=== PATIENT | female | born 2005 | race Caucasian/White ===

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

== ENCOUNTER → 2025-02-07 | Outpatient (CLI) | payer OTHER, SELFPAY ==
[2025-02-07 18:13] LABS: Internal QC Validated? YES +Cl - CLEAR BKGD; Record Kit Lot#, Mono 16251077
== END | disposition home or self-care (01) ==
LOC: MFPLAB 12:28
PROVIDERS: PCP Family Medicine
DX: J02.0 Streptococcal pharyngitis (principal)
CPT/HCPCS: 36415; 86308

== ENCOUNTER 2025-02-14 05:55 | Day surgery (SDC) | payer OTHER, SELFPAY ==
[2025-02-13 10:19] LABS: Hematocrit 40.6 % (37-47); Hemoglobin 13.4 g/dL (12.0-15.0); Mean Corp Hgb Conc 33.0 g/dL (32-36); Mean Corpuscular Volume 86.9 fL (81-99); Mean Platelet Vol. 8.9 fl (6.2-12.0); Platelet Count 236 K/mm3 (150-450); RBC Distribution Width CV 12.0 % (11.6-14.6); RBC Distribution Width SD 38.5 fl (35.1-43.9); Red Blood Count 4.67 M/mm3 (4.2-5.4); White Blood Count 5.4 K/mm3 (4.4-11.0)
[2025-02-13 10:25] LABS: Prothrombin Time (Protime)PT. 13.5 SECONDS (11.7-14.9)
[2025-02-13 10:26] LABS: Partial Thromboplast Time 29.1 Seconds (24.1-36.2)
[2025-02-13 11:10] LABS: AST(SGOT) 18 U/L (<=31); Alanine Aminotransfer ALT/SGPT 13 U/L (<=34); Albumin, Serum 4.0 g/dL (3.5-5.0); Alkaline Phosphatase 84 U/L (35-104); Bilirubin, Direct 0.11 mg/dL (0.00-0.30); Globulin 2.9 g/dL (2.2-4.2)
[2025-02-14] VITALS (15 sets, daily range): BP systolic 93–139; BP diastolic 56–99; PULSE 69–95; RESP 0–18; TEMP 36.1–36.8; O2SAT 10–100; BMI 28.0
--- OUTSIDE RECORDS SUMMARY | 2025-02-14 05:58 | XMS RPT_ITS | CCD ---
Author Organization [facility] Care Team Providers Care Ent Surgeon Name Role Phone Belen Thacker MD Primary Care Provider RAFIA FOREMAN Attending Unavailable RAFIA FOREMAN Referring Unavailable BELEN THACKER Primary Care Unavailable RAFIA FOREMAN Referring Unavailable BELEN THACKER Primary Care Unavailable RAFIA FOREMAN Attending Unavailable IRENE MOONEY Admitting Unavail able IRENE MOONEY Attending Unavail able BELEN THACKER Primary Care Unavailable IRENE MOONEY Referring Unavail able MARY RITTER Attending Unavailable BELEN THACKER Primary Care Unavailable RAFIA FOREMAN Attending Unavailable DOC, MISC Referring Unavailable BELEN THACKER Primary Care Unavailable Unavailable Primary Care Provider Unavailabl e Unavailable Primary Care Provider Unavailabl e Liss ALEXANDER, Ana Primary Care Provider Ana Leija MD Referring Provider McMorrow RELAY MECHANIC-CAaron Attending Provider McMorrow RELAY MECHANIC-CAaron Referring Provider [phone] Ruddy RELAY MECHANIC-CDarcy Attending Provider Ruddy RELAY MECHANIC-C Darcy Referring Provider Dr. Lor Bell MD Attending Provider Madeleine Vidales Referring Provider Ana Leija Primary Care Unavailable Darcy Fox Attending Unavailable Ruddy Darcy Referring Unavailable Ana Leija Primary Care Unavailable Ruddy, Darcy Referring Unavailable Ruddy, Darcy Attending Unavailable Ana Leija Primary Care Unavailable Darcy Fox Attending Unavailable Ruddy Darcy Referring Unavailable Kancherla, Phoenix Consulting Unavailable Robotham, Lor Attending Unavailable Robotham, Lor Referring Unavailable Liss, Chalon Primary Care Unavailable McMorrow RELAY MECHANIC, Aaron Attending Unavailable McMorrow RELAY MECHANIC, Aaron Referring Unavailable Liss, Chalon Primary Care Unavailable McMorrow RELAY MECHANIC, Aaron Attending Unavailable Liss, Chalon Primary Care Unavailable Robotham, Lor Attending Unavailable Liss, Chalon Referring Unavailable Liss, Chalon Primary Care Unavailable Liss, Chalon Primary Care Unavailable Madeleine Fischer Referring Unavailable Robotham, Lor Attending Unavailable Liss, Chalon Primary Care Unavailable Ruddy, Darcy Attending Unavailable Liss, Chalon Referring Unavailable Ruddy, Darcy Attending Unavailable Liss, Chalon Referring Unavailable Liss, Chalon Primary Care Unavailable Liss, Chalon Primary Care Unavailable Ruddy, Darcy Attending Unavailable Liss, Chalon Referring Unavailable McMorrow RELAY MECHANIC, Aaron Attending Unavailable Liss, Chalon Primary Care Unavailable Liss, Chalon Referring Unavailable NEWSOME, ELSA Referring Unavailable NEWSOME, ELSA Referring Unavailable NEWSOME, ELSA Attending Unavailable NEWSOME, ELSA Attending Unavailable NEWSOME, ELSA Attending Unavailable NEWSOME, ELSA Referring Unavailable NEWSOME, ELSA Referring Unavailable NEWSOME, ELSA Attending Unavailable Allergies Allergy Classification Reported Allergen(s) Allergy Type Date of Onset Reaction(s) Facility (20 sources) Amoxicillin; Translations: [AMOXICILLIN] Drug Allergy 5 Rash [facility] (20 sources) Contrast media; Translations: [RED DYE] Allergy to substance 5 Hives, Swelling [facility] (2 sources) Other; Translations: [OTHER] Propensity to adverse reactions 3 Other (See Comments) [facility] (7 sources) cow milk allergenic extract Drug Allergy 5 abdominal pain [facility] (7 sources) egg extract Drug Allergy 5 abdominal pain [facility] (7 sources) Wheat preparation Drug Allergy 5 abdominal pain [facility] (1 source) Amoxicillin Drug Allergy 5 [facility] Repository (1 source) egg extract Drug Allergy 5 [facility] (1 source) Milk Drug allergy (disorder) 5 [facility] (1 source) Wheat preparation Drug Allergy 5 [facility] Rep[facility] (1 source) FD AND C RED NO.40; Translations: [FD AND C RED NO.40] Propensity to adverse reactions to drug (disorder) 3 [facility] Repository Medications Current Medications Medication Drug Class(es) Dates Sig (Normalized) Sig (Original) dicyclomine hydrochloride 20 mg oral tablet (3 sources) Anticholinergic Start: 07-30-2022 take 1 tablet by mouth three times daily dicyclomine (BENTYL) 20 MG Take 1 Tablet (20 mg) by mouth 3 times daily 90 Tablet 3 07/30/2022 Active Drospirenone-Ethiny l Estradiol (12 sources) Progestin, Estrogen Start: 11-05-2024 Drospirenone-Ethi nyl Estradiol 3-0.02 mg tablet Active 1 {tbl} PO daily November 05, 2024 12:00am Start: 07-31-2024 take 30-30.9 tablets by mouth once Drospirenone-Ethinyl Estradiol (AARON, Saima,) 3-0.02 mg per tablet Indications: PCOS (polycystic ovarian syndrome) , Class 1 obesity without serious comorbidity with body mass index (BMI) of 30.0 to 30.9 in adult, unspecified obesity type , Secondary oligomenorrhea , Elevated testosterone level Take 1 tablet by mouth once daily. 84 tablet 3 07/31/2024 Active [place] (Nk) (1 source) Start: 10-12-2023 [place] (Nk) Active October 12, 2023 12:00am phentermine hydrochloride 37.5 mg oral tablet (2 sources) Sympathomimetic Amine Anorectic Start: 09-06-2024 take 1 tablet by mouth once daily Phentermine HCl 37.5 mg tablet Take 1 tablet by mouth once daily. 09/06/2024 Active polyethylene glycol 3350 56020 mg powder for oral solution (3 sources) Osmotic Laxative Start: 01-04-2013 take 17 g by mouth twice daily polyethylene glycol (MIRALAX) powder Take 17 g by mouth 2 times daily. 255 g 0 01/04/2013 Active sucralfate 1000 mg oral tablet (2 sources) Aluminum Complex Start: 12-20-2024 take 1 tablet by mouth twice daily Sucralfate (Carafate) 1 gram tablet Active 1 g PO TWICE A DAY 60 30 2 December 20, 2024 12:00am Completed/Discontinued Medications Medication Drug Class(es) Dates Sig (Normalized) Sig (Original) calcium chloride 0.0014 meq/ml / potassium chloride 0.004 meq/ml / sodium chloride 0.103 meq/ml / sodium lactate 0.028 meq/ml injectable solution (1 source) Start: 08-23-2022 End: 08-23-2022 CONTINUOUS, Intravenous, at 100 mL/hr, Starting on Tue08/23/22 at 1000, For 90 days, PACU 168 hr ethinyl estradiol 0.19663 mg/hr / norelgestromin 0.69195 mg/hr transdermal system (7 sources) Progestin, Estrogen Start: 02-14-2023 End: 07-31-2024 apply 1 dose transdermal route every week XULANE 150-35 mcg/24 hr patch Apply 1 Patch as directed one time a week. 9 Patch 3 02/14/2023 07/31/2024 Discontinued (Course of therapy completed) Start: 11-08-2022 apply 1 dose transde rmal route every week Ethinyl Estradiol-Norelgestrom (XULANE) 150-35 mcg/24 hr patch Apply 1 Patch as directed one time a week. 3 Patch 3 11/08/2022 Active Comment on above: Apply 1 Patch as dir ected one time a week. lidocaine 40 mg/ml topical cream (1 source) Antiarrhythmic, Amide Local Anesthetic Start: 08-23-2022 End: 08-23-2022 lidocaine (LMX) 4 % kit Start: 08-23-2022 End: 08-23-2022 lidocaine (LMX) 4 % kit linaclotide 0.29 mg oral capsule (7 sources) Guanylate Cyclase-C Agonist Start: 11-06-2024 End: 11-28-2024 Linaclotide (Linzess) 290 mcg capsule Discontinued 290 ug PO EVERY MORNING 90 0 November 06, 2024 12:00am November 28, 2024 9:45am take 30 minutes before first meal 40/60 release 24 hr methylphenidate hydrochloride 20 mg extended release oral capsule (16 sources) Central Nervous System Stimulant Start: 01-24-2014 End: 10-12-2023 Methylphenidate Hcl 20 MG capsule,ER biphasic 50-50 Discontinued 20 mg PO DAILY January 24, 2014 12:00am October 12, 2023 9:52pm ondansetron 4 mg disintegrating oral tablet (17 sources) Serotonin-3 Receptor Antagonist Start: 11-05-2024 End: 11-06-2024 take 1 tablet by mouth twice daily as needed Ondansetron 4 mg tablet,disintegratin g Discontinued 4 mg PO TWICE A DAY as needed November 05, 2024 12:00am November 06, 2024 10:56am Start: 01-20-2023 End: 10-12-2023 take 1 tablet by mouth every eight hours as needed for nausea and vomiting Ondansetron 4 mg tablet,disintegrating Discontinued 4 mg PO Q8H as needed for nausea and vomiting 9 3 0 January 20, 2023 12:00am October 12, 2023 9:52pm Oxygen (1 source) Start: 08-23-2022 End: 08-23-2022 See Flowsheet Row, PRN, Starting on Tue08/23/22 at 0935, Until Tue08/23/22 at 1031 Keep sats greater or equal to 95% pantoprazole 40 mg delayed release oral tablet (13 sources) Proton Pump Inhibitor Start: 11-06-2024 End: 12-20-2024 take 1 tablet by mouth once daily Pantoprazole 40 mg tablet,delayed release (DR/EC) Discontinued 40 mg PO daily 90 0 November 28, 2024 12:00am December 20, 2024 10:27am plecanatide 3 mg oral tablet (5 sources) Start: 11-28-2024 End: 12-20-2024 take 1 tablet by mouth once daily Plecanatide (Trulance) 3 mg tablet Discontinued 3 mg PO daily 14 1 November 28, 2024 12:00am December 20, 2024 10:27am Problems Active Problems Problem Classification Problem Date Documented Da te Episodic/Chronic Abdominal pain (20 sources) Abdominal pain; Translations: [Unspecified abdominal pain] Onset: 3 07-30-2022 Episodic Contraceptive and procreative management (3 sources) Patient encounter status; Translations: [Encounter for other contraceptive management] Onset: Episodic Esophageal disorders (7 sources) Gastroesophageal reflux disease; Translations: [Gastro-esophageal reflux disease without esophagitis] 11-05-2024 Chronic Menstrual disorders (5 sources) Secondary oligomenorrhea; Translations: [Secondary oligomenorrhea] Onset: 5 07-19-2024 Chronic Other endocrine disorders (11 sources) Polycystic ovary syndrome; Translations: [Polycystic ovarian syndrome] 07-31-2024 Chronic Other endocrine disorders (1 source) Polycystic ovarian syndrome; Translations: [PCOS (polycystic ovarian syndrome)] Onset: Chronic Other female genital disorders (3 sources) Vaginal odor; Translations: [Other specified noninflammatory disorders of vagina] Episodic Other female genital disorders (11 sources) Cyst of uterine adnexa; Translations: [Unspecified condition associated with female genital organs and menstrual cycle] Onset: 5 07-26-2024 Episodic Other female genital disorders (1 source) Vaginal discharge; Translations: [Other specified noninflammatory disorders of vagina] 09-25-2024 Episodic Other gastrointestinal disorders (19 sources) Constipation; Translations: [Constipation, unspecified] Onset: 3 08-19-2022 Episodic Other liver diseases (8 sources) Lesion of liver; Translations: [Liver disease, unspecified] 11-28-2024 Chronic Other liver diseases (1 source) Liver disease, unspecified; Translations: [Liver disease, unspecified] Onset: Chronic Other liver diseases (17 sources) Enzyme level - finding; Translations: [Elevated transaminase measurement] 11-05-2024 Episodic Other lower respiratory disease (7 sources) Dyspnea; Translations: [Shortness of breath] 11-05-2024 Episodic Other nutritional; endocrine; and metabolic disorders (2 sources) Obesity; Translations: [Class 1 obesity without serious comorbidity with body mass index (BMI) of 30.0 to 30.9 in adult, unspecified obesity type] 07-31-2024 Chronic Unclassified (1 source) Elevation of levels of liver transaminase levels; Translations: [Elevation of levels of liver transaminase levels] Onset: 5 Viral infection (11 sources) Infectious mononucleosis; Translations: [Infectious mononucleosis, unspecified without complication] 12-11-2022 Episodic Past or Other Problems Problem Classification Problem Date Documented Da te Episodic/Chronic Conditions associated with dizziness or vertigo (10 sources) Dizziness and giddiness; Translations: [Dizziness and giddiness] Onset: 09-25-2024 09-25-2024 Episodic Nausea and vomiting (20 sources) Nausea; Translations: [Nausea] Onset: 09-25-2024 09-25-2024 Episodic Other female genital disorders (1 source) Other specified noninflammatory disorders of vagina; Translations: [Vaginal discharge] Onset: 09-25-2024 Episodic Other gastrointestinal disorders (1 source) Constipation, unspecified; Translations: [Constipation, unspecified] Onset: 11-06-2024 Episodic Other screening for suspected conditions (not mental disorders or infectious disease) (7 sources) Increased testosterone level; Translations: [Other specified abnormal findings of blood chemistry] Onset: 09-25-2024 07-31-2024 Episodic Ovarian cyst (14 sources) Cyst of right ovary; Translations: [Unspecified ovarian cyst, right side] Onset: 07-26-2024 07-26-2024 Episodic Results Test Name Value Interpretation Reference Range Facility [facility] 02-07-2025 Monocytes (Bld) [#/Vol] Negative Normal Negative [facility] Comment on above: Order Comment: Order Date: 02/07/25 Order Info: [id number] - MONO Comments: sore throat Performed By: #### L [id number] #### [facility] [address] [place], [place], [id number] [place] 02-03-2025 Indication Follow-up on right ovarian cyst Impression The uterus is anteverted and measures 68 mm x 28 mm x 38 mm. The endometrial thickness is 4 mm. The right ovary measures 38 mm x 29 mm x 19 mm and contains a new 20 mm x 12 mm x 23 mm multilocular cyst with smooth inner wall/non-vascular septations. O-RADS 3 The previous right ovarian cyst seen 07/26/2024 has resolved. There is a right simple paraovarian/paratubal cyst that measures 14.7 mm x 10.2 mm x 13.0 mm. The left ovary measures 33 mm x 33 mm x 18 mm. There is no free fluid visualized. Recommendations O-RADS 3 ovarian lesion, follow up ultrasound is recommended in 6 months if no surgical intervention is planned , Simple paraovarian/paratubal cyst, no follow up imaging is needed. Menstrual History LMP on 01/14/2025. Day of cycle 18. Cycle: regular cycle. Bleeding: normal Method Transabdominal, transvaginal, 3D ultrasound examination, Color Doppler examination. View: Adequate visualization Uterus Uterus: Visualized Uterus position: anteverted Description of uterine malformations: normally shaped Myometrium: normal Endometrium: normal Cervix details: normal Uterus length 68 mm Uterus width 38 mm Uterus height 28 mm Uterus Vol 38.0 cm Endometrial thickness, total 4.0 mm Fibroids: No fibroids identified Polyps: No polyps identified Right Ovary Rt ovary: Visualized Rt ovary morphology: premenopausal normal follicular Rt ovary D1 38 mm Rt ovary D2 29 mm Rt ovary D3 19 mm Rt ovary Vol 11.0 cm Rt ovarian cyst(s): Cysts identified Rt ovarian cyst D1 20 mm Rt ovarian cyst D2 12 mm Rt ovarian cyst D3 23 mm Rt ovarian cyst mean 18.5 mm Rt ovarian cyst vol 2.987 cm Rt ovarian cyst findings: Multilocular cyst with smooth inner wall/non-vascular septations Right Adnexal Mass Findings: Simple paraovarian/paratubal cyst. Size 14.7 mm x 10.2 mm x 13.0 mm. Mean 12.6 mm. Vol 1.021 cm Left Ovary Lt ovary: Visualized Lt ovary morphology: premenopausal normal follicular Lt ovary D1 33 mm Lt ovary D2 33 mm Lt ovary D3 18 mm Lt ovary Vol 10.0 cm Lt ovarian cyst(s): No cysts identified Cul de Sac Visualized. no free fluid visualized Performed By: Amanda Peralta RDMS Read By: Lul Purdy M.D. MATERNAL MEDICINE [facility] [place] 01-31-2025 Radiology Study observation (narrative) Valerie wilks [facility] Surgery Visit Reporton 01-03 Surgery Visit Report [facility] [address] [place] [address] OFFICE VISIT Date of Service: 01/03/25 MR#: [id number] Acct: [id number] Name: NIKKI THACKER IRENE Rep #: [id number] : 2005 Provider: Dr. Lor laird MD Age/Sex: 19/F Location: [facility] Status: Signed Intake Vital Signs 12/20/24 10:26 01/03/25 14:01 Height 5 ft 4 in 5 ft 4 in Weight: 161 lb 160 lb BMI 27.6 27.4 BP 103/68 103/68 Blood Pressure Location Rt brachial Rt brachial Position Sitting Sitting Respiration 17 18 Pulse 67 62 Pulse Source Monitor Monitor Temp 17 F L Temp Source Temporal Pulse Oximetry (%) 99 100 Oxygen Delivery Method room air room air Intake Visit Reasons: 1 week followup Chief Complaint: 1 week f/u Accompanied by: Mother Is patient in pain?: No Allergies egg (eggs) Allergy (Intermediate, Verified 01/03/25 14:02) abdominal pain milk Allergy (Intermediate, Verified 01/03/25 14:02) abdominal pain wheat Allergy (Intermediate, Verified 01/03/25 14:02) abdominal pain red dye Allergy (Verified 01/03/25 14:02) Swelling amoxicillin (Amoxicillin) Adverse Reaction (Verified 01/03/25 14:02) Rash Medications ???Medication ???Instructions ???Recorded ???Confirmed ???Type drospirenone 3 mg-ethinyl 1 tab PO QDAY 11/05/24 01/03/25 Hi story estradiol 0.02 mg tablet pantoprazole 40 mg tablet,delayed 40 mg PO QDAY #30 tabs 12/20/24 0 01/03/25 Rx release (Protonix) sucralfate 1 gram tablet (Carafate) 1 g PO BID 30 days #60 tabs 01/03/25 Rx PFSH Medical History Vitamin deficiency Frequent headaches UTI (urinary tract infection) Patent pressure equalization (PE) tubes, bilateral Low back pain PCOS (polycystic ovarian syndrome) Attention-deficit hyperactivity disorder, unspecified type Psoriasis Family History Grandmother Colon cancer IBS (irritable bowel syndrome) Social History Smoking Status: Never smoker HPI HPI HPI: 19-year-old female presents for follow-up. Patient still states she is having lower abdominal pain and even some left upper quadrant more so than right upper quadrant pain. Patient is continue to take the pantoprazole but did stop the Carafate as she stated caused constipation. Patient does have a previous HIDA scan with ejection fraction of 17%. ROS General General: Yes weight change and fatigue; No appetite, colon cancer or breast cancer HEENT HEENT: No difficulty swallowing, eye injury, eye surgery, swollen glands or hoarseness Endo Endocrine: No thyroid disease, diabetes mellitus, thyroid cancer, Hair loss, heat intolerance or cold intolerance Skin Skin: No rash or changing moles Musc Musculoskeletal: No back problems, arthritis, rheumatoid arthritis, gout or joint pain Cardio Cardiovascular: No murmur, pacemaker, heart disease, atrial fibrillation, high blood pressure, heart attack, heart stent, palpitations, shortness of breath with exertion or chest pain Psych Psychiatric: No depression, anxiety or hearing voices Resp Respiratory: No shortness of breath, No sleep apnea, No cough, No COPD, No asthma, No emphysema and No wheezing Gastro Gastrointestinal: Yes abdominal pain, Yes nausea or vomiting, Yes diarrhea, Yes constipation, Yes blood in stool, Yes acid reflux, No hemorrhoids, No ulcers, Yes gallbladder problem and Yes black,tarry stools Emeka Hematologic: No blood thinners, No blood disorders, No bleeding, No anemia and No blood clots Neuro Neurologic: No numbness and No tingling Exam Const General: cooperative, healthy appearing, comfortable and no acute distress Neck Neck: supple Resp Effort Inspection: normal respiratory effort Cardio Rate: regular rate GI Inspection: non-distended Palpation: soft, no hernias and nontender Skin General: no rashes or lesions noted Psych Mental Status: mental status grossly normal Attitude: cooperative Assessment and Plan Assessment and Plan (1) Abnormal biliary HIDA scan: Status: Acute (2) LUQ pain: Status: Acute (3) Lower abdominal pain: Status: Acute (4) PCOS (polycystic ovarian syndrome): Status: Acute (5) N V (nausea and vomiting): Status: Acute Plan Will have patient continue with the pantoprazole in the perioperative period but will proceed with robotic cholecystectomy due to biliary dyskinesia. Patient is aware that her lower abdominal pain likely will not resolve as may likely be due to PCOS. Also patient had a liver lesion that on MRI was called likely [facility] and patient is on control due to PCOS. Recommend patient get a 6-month follow-up MRI wh (more content not included)... Normal [facility] Surgery Visit Reporton 12-20 Surgery Visit Report [facility] [address] [place] [address] OFFICE VISIT Date of Service: 12/20/24 MR#: [id number] Acct: [id number] Name: NIKKI THACKER Rep #: [id number] : 2005 Provider: Dr. Lor laird MD Age/Sex: 19/F Location: [facility] Status: Signed Intake Vital Signs 11/28/24 09:43 12/20/24 10:26 Height 5 ft 4 in 5 ft 4 in Weight: 159 lb 161 lb BMI 27.3 27.6 BP 95/64 103/68 Blood Pressure Location Rt brachial Position Sitting Respiration 14 17 Pulse 65 67 Pulse Source Monitor Temp 97.6 F L Temp Source Temporal Pulse Oximetry (%) 97 99 Oxygen Delivery Method room air room air Intake Visit Reasons: ABNORMAL HIDA Chief Complaint: abnormal hida Is patient in pain?: Yes (abdominal pains-achiness ) Allergies egg (eggs) Allergy (Intermediate, Verified 12/20/24 10:27) abdominal pain milk Allergy (Intermediate, Verified 12/20/24 10:27) abdominal pain wheat Allergy (Intermediate, Verified 12/20/24 10:27) abdominal pain red dye Allergy (Verified 12/20/24 10:27) Swelling amoxicillin (Amoxicillin) Adverse Reaction (Verified 12/20/24 10:27) Rash Medications ???Medication ???Instructions ???Recorded ???Confirmed ???Type drospirenone 3 mg-ethinyl 1 tab PO QDAY 11/05/24 12/20/24 Hi story estradiol 0.02 mg tablet pantoprazole 40 mg tablet,delayed 40 mg PO QDAY #30 tabs 12/20/24 0 12/20/24 Rx release (Protonix) sucralfate 1 gram tablet (Carafate) 1 g PO BID 30 days #60 tabs 12/20/24 Rx PFSH Medical History (Updated 12/28/24 @ 12:[address] Lor Bell MD) Vitamin deficiency Frequent headaches UTI (urinary tract infection) Patent pressure equalization (PE) tubes, bilateral Low back pain PCOS (polycystic ovarian syndrome) Attention-deficit hyperactivity disorder, unspecified type Psoriasis Family History Grandmother Colon cancer IBS (irritable bowel syndrome) Social History Smoking Status: Never smoker HPI HPI HPI: 19-year-old female presents due to abnormal HIDA scan. Patient states she has had nausea and vomiting and fatigue and having diffuse abdominal pain for about a year. Patient complains that she can have some left upper quadrant currently is lower abdomen now a 6/10. Patient was recently diagnosed with PCOS as well. Patient states she did take a PPI for about a month regularly but states she had diarrhea so she is currently not on PPI. Patient states she had a colonoscopy about 2 years ago at [facility] EGD and colonoscopy negative per patient patient is currently on control for the last 3 months due to the due diagnosis of PCOS patient does have a liver lesion called an [facility] on MRI. Patient has bowel movements daily denies any blood. ROS General General: Yes weight change and fatigue; No appetite, colon cancer or breast cancer HEENT HEENT: No difficulty swallowing, eye injury, eye surgery, swollen glands or hoarseness Endo Endocrine: No thyroid disease, diabetes mellitus, thyroid cancer, Hair loss, heat intolerance or cold intolerance Skin Skin: No rash or changing moles Musc Musculoskeletal: No back problems, arthritis, rheumatoid arthritis, gout or joint pain Cardio Cardiovascular: No murmur, pacemaker, heart disease, atrial fibrillation, high blood pressure, heart attack, heart stent, palpitations, shortness of breath with exertion or chest pain Psych Psychiatric: No depression, anxiety or hearing voices Resp Respiratory: No shortness of breath, No sleep apnea, No cough, No COPD, No asthma, No emphysema and No wheezing Gastro Gastrointestinal: Yes abdominal pain, Yes nausea or vomiting, Yes diarrhea, Yes constipation, Yes blood in stool, Yes acid reflux, No hemorrhoids, No ulcers, Yes gallbladder problem and Yes black,tarry stools Emeka Hematologic: No blood thinners, No blood disorders, No bleeding, No anemia and No blood clots Neuro Neurologic: No numbness and No tingling Exam Const General: cooperative, healthy appearing, comfortable and no acute distress [facility] Head: normocephalic and atraumatic Neck Neck: supple Resp Effort Inspection: normal respiratory effort Cardio Rate: regular rate GI Inspection: non-distended Palpation: soft, no hernias and nontender Skin General: no rashes or lesions noted Neuro General: CN's II-XI intact bilaterally Extrem General: normal to inspection Psych Mental Status: mental status grossly normal Attitude: cooperative Assessment and Plan Assessment and Plan (1) Abnormal biliary HIDA scan: Status: Acute (2) LUQ pain: Status: Acute (3) Lower abdominal pain: Status: Acute (4) PCOS (polycystic ovaria (more content not included)... Normal [facility] Hepatobilliary Img w/Pharm I nton 12-12-2024 Hepatobilliary Img w/Pharm Int [facility] Imaging Services [address] [place] [address] Hepatobilliary Img w/Pharm Int MR#: [id number] Acct: [id number] Name: NIKKI THACKER Rep #: [id number] : 2005 F 19 From: Michael White MD PCP: Dr. Ana Leija MD Status: REG CLI Study: Hepatobilliary Img w/Pharm Int Date of Exam: 0 12/12/24 Exam# [id number] Ordering Dr: Darcy oFx PROCEDURE: HEPATOBILIARY IMG W/PHARM INT 12/12/2024 REASON FOR EXAM: ABDOMINAL PAIN, N/V, RAPID WEIGHT LOSS TECHNIQUE: Intravenous Choletec with planar imaging of the abdomen. RADIOPHARMACEUTICAL: 5.5 mCi mebrofenin COMPARISON: MRI 11/29/2024 FINDINGS: Prompt and homogeneous liver activity. There is gallbladder activity by 15 minutes. 1.4 mcg of CCK was administered. Proximal bowel activity was noted during the ejection fraction base. Gallbladder ejection fraction of only 17% is calculated. NM/Hepatobilliary Img w/Pharm Int IMPRESSION: Patent cystic and common bile ducts. Abnormally low gallbladder ejection fraction, consistent with biliary dyskinesia. Reading Location: [place] [address] CC: RELAY MECHANICElliot Fox; Dr. Ana Leija MD Animal Pathology Teacher: Signed Normal [facility] Magnetic resonance imaging r eportOrdered By: Aristides Guerra on 11-29-2024 Study report [facility] Imaging Services [address] [place] [address] MRI Abd WITH and W/O Contrast MR#: [id number] Acct: [id number] Name: NIKKI THACKER Rep #: [id number] : 2005 F 19 From: Shakila Guerra MD PCP: Dr. Ana Leija MD Status: REG CL I Study:MRI Abd WITH and W/O Contrast Date of E xam: 11/28/24 Exam# [id number] Ordering Dr: Darcy Fox RELAY MECHANICElliot PROCEDURE: MRI ABD WITH AND W/O CONTRAST, 11/28/2024 REASON FOR EXAM: LIVER LESION TECHNIQUE: Multiplanar multisequence MRI abdomen was performed with and without IV contrast. IV contrast: 14 mL Clariscan COMPARISON: 10/04/2024 FINDINGS: Variable overall mild motion limitation. Some sequences are moderately motion degraded. T2 fat-sat was not performed. Liver: Normal background signal characteristics and morphology. T1 isointense faintly T2 hypointense to isointense mass in the medial RIGHT hepatic dome abutting the intrahepatic IVC demonstrates homogeneousarterial phase hyperenhancement essentially isoenhancing on more delayed postcontrast sequences measures 3.7 x 3.5 cm. There is a subtle enhancing and faintly T1 dark/T2 bright central scar.. Spleen: Unremarkable. Gallbladder: Unremarkable. Pancreas: Unremarkable. Adrenals: Unremarkable. Kidneys: Unremarkable. Bowel: Not well evaluated by MRI; no gross bowel dilatation.. Lymph nodes: Unremarkable. Vasculature: Unremarkable. Peritoneum: Unremarkable. Body Wall: Unremarkable. Bones: Unremarkable. MRI/MRI Abd WITH and W/O Contrast IMPRESSION: 1. 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 Given questioned enlargement from reported maximal dimension 2.9 cm on ultrasound 10/04/2024 which could conceivably be related to the difference in modality, would consider a follow-up multiphase hepatic protocol MRI with and without contrast in 6 months. 2. Additional description as above. Reading Location: [id number] CC: RELAY MECHANICElliot Fox; Dr. Ana Leija MD ~ Animal Pathology Teacher: Signed [facility] Gastroenterology Visit Repor roma 11-28-2024 Gastroenterology Visit Report [facility] Gastroenterology [address] [place] [address] OFFICE VISIT Date of Service: 11/28/24 MR#: [id number] Acct: [id number] Name: NIKKI THACKER Rep #: [id number] : 2005 Provider: ASHANTI esqueda Age/Sex: 19/F Location[place] [facility] Status: Signed Intake Vital Signs 11/06/24 11:05 11/28/24 09:43 Height 5 ft 4 in 5 ft 4 in Weight: 159 lb BMI 27.3 BP 95/64 Respiration 14 Pulse 65 Temp 97.6 F L Temp Source Temporal Pulse Oximetry (%) 97 Oxygen Delivery Method room air Intake Visit Reasons: 10 day FU Chief Complaint: liver lesion and labs Hooking Machine Operator Required: No Accompanied by: Mother Is patient in pain?: Yes Allergies egg (eggs) Allergy (Intermediate, Verified 11/28/24 09:41) abdominal pain milk Allergy (Intermediate, Verified 11/28/24 09:41) abdominal pain wheat Allergy (Intermediate, Verified 11/28/24 09:41) abdominal pain red dye Allergy (Verified 11/28/24 09:41) Swelling amoxicillin (Amoxicillin) Adverse Reaction (Verified 11/28/24 09:41) Rash Medications ???Medication ???Instructions ???Recorded ???Confirmed ???Type drospirenone 3 mg-ethinyl 1 tab PO QDAY 11/05/24 11/28/24 Hi story estradiol 0.02 mg tablet pantoprazole 40 mg tablet,delayed 40 mg PO QDAY #90 tabs 11/28/24 0 11/28/24 Rx release plecanatide 3 mg tablet (Trulance) 3 mg PO QDAY #14 tabs 11/28/24 0 11/28/24 Rx PFSH Medical History (Updated 11/28/24 @ 12:37 by ASHANTI Jimenez) Vitamin deficiency Frequent headaches UTI (urinary tract infection) Patent pressure equalization (PE) tubes, bilateral Low back pain PCOS (polycystic ovarian syndrome) Attention-deficit hyperactivity disorder, unspecified type Psoriasis Family History Grandmother Colon cancer IBS (irritable bowel syndrome) Social History Smoking Status: Never smoker HPI HPI Chief Complaint: liver lesion and labs Details: NIKKI THACKER, is a 19 F who presents to the office today for - seen in office today with her mom - abdominal and stomach cramping - nausea without emesis - Linzess 290mcg caused constipation, reports she stopped taking because she did not have a BM for a week - she reports she now has a BM every couple of days, experience bad lower abdominal cramping - stools can be hard or soft, [place] 1 or 2 and [place] 4, she can also have diarrhea - previously trialed Miralax and it quit working - reports getting a colonic in the past - she experience bloating and gas - stabbing pains - pain is worse after eating - the nausea is intermittent and much worse with bad cramping - reports PCP and ASSISTANT AUDITOR both think the abdominal cramping after a result of PCOS - She is to follow recommendations regarding treatment and medications, You've got to help yourself before you can be helped, so. The patient is a 19-year-old female presenting with abdominal pain and constipation. The abdominal pain is described as cramping and stabbing, primarily located in the lower abdomen, and is exacerbated by eating. The pain is persistent and does not improve with bowel movements. The patient reports a history of constipation, which has been a lifelong issue. She has tried various treatments, including Linzess and MiraLax, with limited success. The constipation is characterized by infrequent bowel movements, hard stools, and occasional overflow diarrhea. The patient has experienced significant weight loss, which was unintentional and attributed to severe abdominal pain and nausea, leading to decreased oral intake. She is currently on control to regulate menstrual cycles, which has been effective, although it causes mood disturbances. The patient has a liver nodule suspected to be a hemangioma, identified on ultrasound, and is awaiting further evaluation with an MRI. Her liver enzymes were previously elevated, likely due to phenamine use, but have since normalized. Attestation: Documentation on this patient encounter was supported using ambient scribe technology/ voice AI technology. The patient consented to recording for the purpose of documenting the encounter. Casie fisher reviewed content of the generated note prior to signature. ROS Const Constitutional: Positive for weight change (gain); No fatigue or fever(s) ENT ENT: No difficulty swallowing Gastro GI: Positive for abdominal pain, bloating, change in bowel habits, constipation, heartburn and nausea/dyspepsia; No belching, change in stool character, coffee ground emesis, cramping, diarrhea, difficulty swallowing, feeling full early, excessive flatus, incontinent of stools, Vomiting blood/hematemesis, Blood in stool, loose st (more content not included)... Normal [facility] MRI Abd WITH and W/O Contras ton 11-28-2024 MRI Abd WITH and W/O Contrast [facility] Imaging Services [address] [place] [address] MRI Abd WITH and W/O Contrast MR#: [id number] Acct: [id number] Name: NIKKI THACKER Rep #: [id number] : 2005 F 19 From: Aristides Guerra MD PCP: Dr. Ana Leija MD Status: REG CLI Study: MRI Abd WITH and W/O Contrast Date of Exam: Exam# [id number] Ordering Dr: Darcy Fox RELAY MECHANIC- C PROCEDURE: MRI ABD WITH AND W/O CONTRAST, 11/28/2024 REASON FOR EXAM: LIVER LESION TECHNIQUE: Multiplanar multisequence MRI abdomen was performed with and without IV contrast. IV contrast: 14 mL Clariscan COMPARISON: 10/04/2024 FINDINGS: Variable overall mild motion limitation. Some sequences are moderately motion degraded. T2 fat-sat was not performed. Liver: Normal background signal characteristics and morphology. T1 isointense faintly T2 hypointense to isointense mass in the medial RIGHT hepatic dome abutting the intrahepatic IVC demonstrates homogeneous arterial phase hyperenhancement essentially isoenhancing on more delayed postcontrast sequences measures 3.7 x 3.5 cm. There is a subtle enhancing and faintly T1 dark/T2 bright central scar.. Spleen: Unremarkable. Gallbladder: Unremarkable. Pancreas: Unremarkable. Adrenals: Unremarkable. Kidneys: Unremarkable. Bowel: Not well evaluated by MRI; no gross bowel dilatation.. Lymph nodes: Unremarkable. Vasculature: Unremarkable. Peritoneum: Unremarkable. Body Wall: Unremarkable. Bones: Unremarkable. MRI/MRI Abd WITH and W/O Contrast IMPRESSION: 1. 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 Given questioned enlargement from reported maximal dimension 2.9 cm on ultrasound 10/04/2024 which could conceivably be related to the difference in modality, would consider a follow-up multiphase hepatic protocol MRI with and without contrast in 6 months. 2. Additional description as above. Reading Location: [id number] CC: RELAY MECHANIC-C Darcy Fox; Dr. Ana Leija MD Animal Pathology Teacher: Signed Normal [facility] FLORES w/ Reflex Mult Confirmon 11-19-2024 ANTI-DNA (DS)AB TNP Normal [facility] Comment on above: Performed By: #### L 501.9520 #### [facility] Laboratory [address] [place], [address] ANTI-SS-A TNP Normal [facility] Comment on above: Performed By: #### L 501.9520 #### [facility] Laboratory [address] [place], [address] ANTI-SS-B TNP Normal [facility] Comment on above: Performed By: #### L 501.9520 #### [facility] [address] [place], [address] Anti-Mitochondrial ABon - ANTIMITOCHON AB <20.0 Normal 0.0-20.0 [facility] Comment on above: Result Comment: Nega tive 0.0 - 20.0 Equivocal 20.1 - 24.9 Positive >24.9 Mitochondrial (M2) Antibodies are found in 90-96% of patients with primary biliary cirrhosis. Performed By: #### L 501.9520 #### [facility] [address] [place], [address] Anti-Smooth Muscle ABSon ANTISMOOTH MUSC 3 Units Normal 0-19 [facility] Comment on above: Result Comment: Nega tive 0 - 19 Weak positive 20 - 30 Moderate to strong positive >30 Actin Antibodies are found in 52-85% of patients with autoimmune hepatitis or chronic active hepatitis and in 22% of patients with primary biliary cirrhosis. Performed By: #### L 501.9520 #### [facility] [address] [place], [address] Hepatitis A AB, Totalon 10-21 HEPATITIS A,TOT Positive Abnormal Negative [facility] Comment on above: Result Comment: Comm ent: The HAV total antibody assay detects both IgG and IgM but does not differentiate between them. A negative result suggests susceptibility to infection. A positive result could be due to vaccination, previously resolved infection or active infection. Testing for HAV IgM should be performed if active HAV infection is suspected. [employer] offers profiles that will automatically reflex positive HAV total antibody results to IgM (e.g., panel #[id number] HAV Antibody w/ Rfx). Performed at: [facility] [employer] [id number] Application Integration Engineer: Sandeep Kruger PhD, Phone: [phone] Performed By: #### L 501.9520 #### [facility] [address] [place], [address] Hepatitis B Core Ab Totalon 11-07-2024 HEP B CORE,TOT Negative Normal Negative [facility] Comment on above: Performed By: #### L 501.9520 #### [facility] [address] [place], [address] IgG Subclasseson 11-07-2024 IgG, SUBCLASS 1 552 mg/dL Normal 325-846 [facility] Comment on above: Performed By: #### L 500.4050 #### [facility] [address] [place], [address] IgG, SUBCLASS 2 234 mg/dL Normal 133-509 [facility] Comment on above: Performed By: #### L 500.7148 #### [facility] [address] [place], [address] IgG, SUBCLASS 3 23 mg/dL Normal 19-109 [facility] Comment on above: Performed By: #### L 500.4050 #### [facility] [address] [place], [address] IgG, SUBCLASS 4 34 mg/dL Normal 3-104 [facility] Comment on above: Performed By: #### L 500.4050 #### [facility] [address] [place], [address] IGG,QUANT 1088 mg/dL Normal 719-1475 [facility] Comment on above: Performed By: #### L 500.4050 #### [facility] [address] [place], [address] Absolute lymphocyte countOrd ered By: Darcy Fox on 11-06-2024 Lymphocytes Auto (Unsp spec) [#/Vol] 1.49 10*3/uL 0.83-4.51 [facility] Absolute neutrophil countOrd ered By: Darcy Fox on 11-06-2024 Neutrophils (Bld) [#/Vol] 3.0 10*3/uL 2.0-7.7 [facility] Anion gap in Serum or Plasma Ordered By: Darcy Fox on 11-06-2024 Anion gap [Moles/Vol] 11 mmol/L 5-15 [facility] Automated lymphocyte count a s percentage of total leukocytesOrdered By: Darcy Fox on 11-06-2024 Lymphocytes/100 WBC Auto (Unsp spec) 29.8 % -41 [facility] BUN/creatinine ratioOrdered By: Darcy Fox on 11-06-2024 Urea nitrogen/Creatinine [Mass ratio] 16.6 mg/mg 10- [facility] Basic Metabolic Profile (BMP )on 11-06-2024 BUN/CRE 16.6 RATIO Normal - [facility] Comment on above: Performed By: #### L 501.9520 #### [facility] Laboratory [address] [place], [address] Calcium [Mass/Vol] 9.6 mg/dL Normal 7.6-11.0 [facility] Comment on above: Performed By: #### L [id number] #### [facility] [address] [place], [address] Chloride [Moles/Vol] 104 mmol/L Normal 98-108 [facility] Comment on above: Performed By: #### L 501.9520 #### [facility] [address] [place], [address] CO2 [Moles/Vol] 24.1 mmol/L Normal 21.0-32.0 [facility] Comment on above: Performed By: #### L [id number] #### [facility] [address] [place], [address] Creatinine [Mass/Vol] 0.66 mg/dL Low 0.70-1.20 [facility] Comment on above: Performed By: #### L 501.9520 #### [facility] [address] [place], [address] GAP 11 Normal 5-15 [facility] Comment on above: Performed By: #### L 501.9520 #### [facility] [address] [place], [address] GFR/1.73 sq M.predicted among non-blacks MDRD (S/P/Bld) [Vol rate/Area] 130 mL/min/{1.73_m2} Normal >60 [facility] Comment on above: Result Comment: mL/m in/1.73m2 CKD-EPI Creatinine Equation (2020) Performed By: #### L 501.9520 #### [facility] [address] [place], [address] Glucose [Mass/Vol] 79 mg/dL Normal 70-99 [facility] Comment on above: Performed By: #### L 188.9585 #### [facility] [address] [place], [place], [address] [phone] Potassium [Moles/Vol] 4.2 mmol/L Normal 3.3-5.1 [facility] Comment on above: Performed By: #### L 501.9519 #### [facility] [address] [place], [address] Sodium [Moles/Vol] 139 mmol/L Normal 133-145 [facility] Comment on above: Performed By: #### L 501.20 #### [facility] [address] [place], [place], [address] Urea nitrogen [Mass/Vol] 11 mg/dL Normal 4-19 [facility] Comment on above: Performed By: #### L 544.9519 #### [facility] [address] [place], [place], [address] Basophil percentageOrdered B y: Darcy Fox on 11-06-2024 Basophils/100 WBC (Bld) 0.4 % 0-1 [facility] Bilirubin directOrdered By: Darcy oFx on 11-06-2024 Bilirubin.direct [Mass/Vol] 0.13 mg/dL 0.00-0.30 [facility] Bilirubin, totalOrdered By: Darcy Fox on 11-06-2024 Bilirubin [Mass/Vol] 0.29 mg/dL 0.00-1.30 [facility] CBC W/Diff, Automatedon 10-21 Absolute Lymph 1.49 X10 3/uL Normal 0.83-4.51 [facility] Comment on above: Performed By: #### L 490.9132 #### [facility] [address] [place], [address] Absolute Neut 3.0 X10 3/uL Normal 2.0-7.7 [facility] Comment on above: Performed By: #### L 787.3320 #### [facility] [address] [place], [address] Basophils/100 WBC (Bld) 0.4 % Normal 0-1 [facility] Comment on above: Performed By: #### L 501.9520 #### [facility] [address] [place], [address] Eosinophils/100 WBC (Bld) 0.6 % Normal 0-5 [facility] Comment on above: Performed By: #### L 501.9520 #### [facility] [address] [place], [address] Erythrocyte distribution width (RBC) [Ratio] 12.3 % Normal 11.6-14.6 [facility] Comment on above: Performed By: #### L 501.9520 #### [facility] [address] [place], [address] Hematocrit (Bld) [Volume fraction] 39.8 % Normal 37-47 [facility] Comment on above: Performed By: #### L 501.9520 #### [facility] [address] [place], [address] Hemoglobin (Bld) [Mass/Vol] 13.4 g/dL Normal 12.0-15.0 [facility] Comment on above: Performed By: #### L 501.9520 #### [facility] [address] [place], [address] IG% 0.200 Normal 0.0-0.9 [facility] Comment on above: Result Comment: IG% - Immature Granulocytes (promyelocytes, myelocytes and metamyelocytes) > 1% indicates that a LEFT SHIFT is Present. Performed By: #### L 501.9520 #### [facility] [address] [place], [address] Lymphocytes/100 WBC (Bld) 29.8 % Normal 19-41 [facility] Comment on above: Performed By: #### L 501.9520 #### [facility] [address] [place], [address] MCH (RBC) [Entitic mass] 29.2 pg Normal 27.0-32.0 [facility] Comment on above: Performed By: #### L [id number] #### [facility] [address] [place], [address] MCHC (RBC) [Mass/Vol] 33.7 g/dL Normal 32-36 [facility] Comment on above: Performed By: #### L [id number] #### [facility] [address] [place], [address] MCV (RBC) [Entitic vol] 86.7 fL Normal 81-99 [facility] Comment on above: Performed By: #### L 501.9520 #### [facility] [address] [place], [address] Monocytes/100 WBC (Bld) 9.2 % Normal 0-10 [facility] Comment on above: Performed By: #### L 501.9520 #### [facility] [address] [place], [address] Neutrophils/100 WBC (Bld) 59.8 % Normal 47-70 [facility] Comment on above: Performed By: #### L 501.9520 #### [facility] [address] [place], [address] Nucleated RBC (Bld) [#/Vol] 0 10*3/uL Normal 0-5 [facility] Comment on above: Performed By: #### L 501.9520 #### [facility] [address] [place], [address] Platelet mean volume (Bld) [Entitic vol] 9.3 fL Normal 6.2-12.0 [facility] Comment on above: Performed By: #### L 501.9520 #### [facility] [address] [place], [address] Platelets (Bld) [#/Vol] 231 10*3/uL Normal 150-450 [facility] Comment on above: Performed By: #### L 501.9520 #### [facility] [address] [place], [address] RBC (Bld) [#/Vol] 4.59 10*6/uL Normal 4.2-5.4 [facility] Comment on above: Performed By: #### L 501.9520 #### [facility] [address] [place], [address] RDW SD 38.9 fl Normal 35.1-43.9 [facility] Comment on above: Performed By: #### L 501.9520 #### [facility] [address] [place], [address] WBC (Bld) [#/Vol] 5.0 10*3/uL Normal 4.4-11.0 [facility] Comment on above: Performed By: #### L 501.9520 #### [facility] [address] [place], [address] Carbon dioxide, total [Moles /volume] in Central venous bloodOrdered By: Darcy Fox on 11-06-2024 CO2 [Moles/Vol] 24.1 mmol/L 21.0-32.0 [facility] Chloride assayOrdered By: Felipe Fox on 11-06-2024 Chloride [Moles/Vol] 104 mmol/L 98-108 [facility] Eosinophil percentageOrdered By: Darcy Fox on 11-06-2024 Eosinophils/100 WBC (Bld) 0.6 % 0-5 [facility] Erythrocyte distribution wid th ratioOrdered By: Darcy Fox on 11-06-2024 Erythrocyte distribution width (RBC) [Ratio] 12.3 % 11.6-14.6 [facility] Erythrocyte distribution wid th standard deviationOrdered By: Darcy Fox on 11-06-2024 Erythrocyte distribution width (RBC) [Ratio] 38.9 fl 35.1-43.9 [facility] [facility] Gastroenterology Visit Repor ton 11-06-2024 Gastroenterology Visit Report [facility] Gastroenterology [address] [place] [address] OFFICE VISIT Date of Service: 11/06/24 MR#: [id number] Acct: [id number] Name: NIKKI THACKER Rep #: [id number] : 2005 Provider: ASHANTI esqueda Age/Sex: 19/F Location[place] [facility] [place] [facility] [place] Status: Signed Intake Vital Signs 10/12/23 21:49 11/06/24 11:05 Height 5 ft 4 in 5 ft 4 in Weight: 155 lb 8 oz BMI 26.6 BP 116/77 Respiration 18 Pulse 73 Pulse Oximetry (%) 98 Oxygen Delivery Method room air Intake Visit Reasons: LIVER TUMOR-ELEVATED LIVER LEVELS-MAKING HER SICK Chief Complaint: liver lesion and labs Hooking Machine Operator Required: No Accompanied by: Mother Is patient in pain?: Yes Allergies egg (eggs) Allergy (Intermediate, Verified 11/05/24 12:17) abdominal pain milk Allergy (Intermediate, Verified 11/05/24 12:17) abdominal pain wheat Allergy (Intermediate, Verified 11/05/24 12:17) abdominal pain red dye Allergy (Verified 11/05/24 12:17) Swelling amoxicillin (Amoxicillin) Adverse Reaction (Verified 11/05/24 12:17) Rash Medications ???Medication ???Instructions ???Recorded ???Confirmed ???Type drospirenone 3 mg-ethinyl 1 tab PO QDAY 11/05/24 11/05/24 Hi story estradiol 0.02 mg tablet linaclotide 290 mcg capsule 290 mcg PO QAM #90 caps 11/06/24 0 11/06/24 Rx (Linzess) pantoprazole 40 mg tablet,delayed 40 mg PO QDAY #90 tabs 11/06/24 0 11/06/24 Rx release Nurse's Note: Was taking something almost every day because of constipation. Recently she has had blood in her stool. Had IBS as a child per mother. Has abdominal pain all over and sleeps with a heating pad. Has recently been awakened in the middle of the night vomiting with acid burning taste in her mouth. [facility] Medical History Vitamin deficiency Frequent headaches UTI (urinary tract infection) Patent pressure equalization (PE) tubes, bilateral Low back pain PCOS (polycystic ovarian syndrome) Attention-deficit hyperactivity disorder, unspecified type Psoriasis Family History Grandmother Colon cancer IBS (irritable bowel syndrome) Social History Smoking Status: Never smoker HPI HPI Chief Complaint: liver lesion and labs Details: NIKKI THACKER, is a 19 F who presents to the office today for - seen in office today with her mom 19y/o with elevated liver enzymes - wakes up in the middle of the night vomiting acid and undigested foods - constipation really bad - abnormal liver enzymes - nausea and vomiting for several months LABS 09/28/2024 AST 298, ALT 780, ALP 129 TSH normal Acetaminophen level 10/04/2024 <5 HBVsAg 10/04/2024 negative HCV Ab 10/04/2024 negative ABD US 10/04/2024 2.9 x 2 x 1.2cm echogenic nodule in the right lobe of the liver suggestive of a hemangioma She is now having a BM daily, stools range from loose to formed - BRB on toilet tissue - Nausea, vomiting and heart racing started 2 months after starting phentermine (Adipex). - Two days after stopping phentermine (Adipex) she had labs drawn. - Since stopping the phentermine she still has nausea and some vomiting. - C/O generalized abdominal pain, constant, eating worsens the pain. - The pain and nausea were present prior to starting phentermine and have persisted. - Since stopping phentermine she reports the emesis has slowed down but pain, nausea and constipation are persisting. - denies any fevers or night sweats - denies any jaundice - denies any dark urine or rios stools - denies any recent viral infections - denies any ATB - she used to take Vitamin D, C, women's multi, women's elderberry gummy - denies any itching, rashes - denies any family h/o liver disease - denies any alcohol - rare use of Tylenol or Advil - denies any muscle aches - Constipation has been a life long issue for her - she reports labs have not been repeated - has been off Adipex now for 2 months - she is taking an oral control (drospirenone-ethinyl estradiol 3-0.02mg daily) x 3 months - never took phenergan which was prescribed for nausea - denies any unexplained weight loss after stopping phentermine - she reports a 27lb weight loss in 2 months on phentermine - she drinks 1 jordyn plus 2 bottles of water a day, she does fill the jordyn with ice - 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 Normal [facility] Glomerular filtration rate ( GFR) estimation/1.73 sq m using serum, plasma, or whole bOrdered By: Darcy Fox on 11-06-2024 GFR/1.73 sq M.predicted among non-blacks MDRD (S/P/Bld) [Vol rate/Area] 130 mL/min/{1.73_m2} >60 [facility] Comment on above: mL/min/1.73m2 CKD-EP I Creatinine Equation (2020) Hematocrit Auto (Bld) [Volum e fraction]Ordered By: Darcy Fox on 11-06-2024 Hematocrit (Bld) [Volume fraction] 39.8 % 37-47 [facility] Hemoglobin measurementOrdere d By: Darcy Fox on 11-06-2024 Hemoglobin (Bld) [Mass/Vol] 13.4 g/dL 12.0-15.0 [facility] Hepatitis B Surface Antibody on 11-06-2024 HEP B Surf Ab Non-Reactive Normal [facility] Comment on above: Result Comment: <8.5 mIU/mL: Non-Reactive 8.5<= x <11.5 mIU/mL: Indeterminate >=11.5 mIU/mL: Reactive Non Reactive: Inconsistent with immunity less than <10 mIU/mL Reactive: Consistent with immunity greater than or equal to 10 mIU/mL Performed By: #### L 501.9520 #### [facility] Laboratory [address] [place], [place], [id number] Immature granulocytes/100 WB C Auto (Bld)Ordered By: Darcy Fox on 11-06-2024 Immature granulocytes/100 WBC (Bld) 0.200 % 0.0-0.9 [facility] Comment on above: IG% - Immature Granu locytes (promyelocytes, myelocytes and metamyelocytes) > 1% indicates that a LEFT SHIFT is Present. International normalized rat io (INR) calculationOrdered By: Darcy Fox on 11-06-2024 INR Coag (Bld) [Relative time] 1.0 {INR} [facility] Laboratory - Chemistry and C hemistry - challengeOrdered By: Darcy Fox on 11-06-2024 AST [Catalytic activity/Vol] 19 U/L <32 [facility] Liver Profileon 11-06-2024 Albumin [Mass/Vol] 4.2 g/dL Normal 3.5-5.0 [facility] Comment on above: Performed By: #### L 501.9520 #### [facility] [address] [place], [place], [id number] ALK PHOS 78 U/L Normal 35-104 [facility] Comment on above: Performed By: #### L 501.9520 #### [facility] [address] [place], [place], [id number] ([phone] ALT [Catalytic activity/Vol] 14 U/L Normal <=34 [facility] Comment on above: Performed By: #### L 501.9520 #### [facility] [address] [place], [place], [id number] AST [Catalytic activity/Vol] 19 U/L Normal <=31 [facility] Comment on above: Performed By: #### L 501.9520 #### [facility] [address] [place], [address] Bilirubin [Mass/Vol] 0.29 mg/dL Normal 0.00-1.30 [facility] Comment on above: Performed By: #### L 501.9520 #### [facility] [address] [place], [address] Bilirubin.direct [Mass/Vol] 0.13 mg/dL Normal 0.00-0.30 [facility] Comment on above: Performed By: #### L 501.9520 #### [facility] [address] [place], [address] Globulin (S) [Mass/Vol] 3.0 g/dL Normal 2.2-4.2 [facility] Comment on above: Performed By: #### L 501.9520 #### [facility] [address] [place], [address] T PROT 7.1 g/dL Normal 5.9-8.4 [facility] Comment on above: Performed By: #### L 501.9520 #### [facility] [address] [place], [address] MCV (mean corpuscular volume ) determinationOrdered By: Darcy Fox on 11-06-2024 MCV (RBC) [Entitic vol] 86.7 fL 81-99 [facility] Mean corpuscular hemoglobin (MCH) determinationOrdered By: Darcy Fox on 11-06-2024 MCH (RBC) [Entitic mass] 29.2 pg 27.0-32.0 [facility] Mean corpuscular hemoglobin concentration (MCHC) determinationOrdered By: Darcy Fox on 11-06-2024 MCHC (RBC) [Mass/Vol] 33.7 g/dL 32-36 [facility] Mean platelet volume determi nationOrdered By: Darcy Fox on 11-06-2024 Platelet mean volume (Bld) [Entitic vol] 9.3 fL 6.2-12.0 [facility] Monocyte percentageOrdered B y: Darcy Fox on 11-06-2024 Monocytes/100 WBC (Bld) 9.2 % 0-10 [facility] Neutrophil percentageOrdered By: Darcy Fox on 11-06-2024 Neutrophils/100 WBC (Bld) 59.8 % 47-70 [facility] Nucleated red blood cell per centageOrdered By: Darcy Fox on 11-06-2024 Nucleated RBC/100 WBC (Bld) [Ratio] 0 % 0-5 [facility] Platelet countOrdered By: Felipe Fox on 11-06-2024 Platelets (Bld) [#/Vol] 231 10*3/uL 150-450 [facility] Potassium measurement (mass/ volume)Ordered By: Darcy Fox on 11-06-2024 Potassium (Unsp spec) [Mass/Vol] 4.2 mmol/L 3.3-5.1 [facility] Prothrombin Time w/INRon INR Coag (PPP) [Relative time] 1.0 {INR} Normal [facility] Comment on above: Performed By: #### L 501.9520 #### [facility] [address] [place], [address] PT Coag (PPP) [Time] 13.2 s Normal 11.7-14.9 [facility] Comment on above: Performed By: #### L 501.9520 #### [facility] [address] [place], [address] Prothrombin timeOrdered By: Darcy Fox on 11-06-2024 PT Coag (PPP) [Time] 13.2 s 11.7-14.9 [facility] RBC Auto (Bld) [#/Vol]Ordere d By: Darcy Fox on 11-06-2024 RBC (Bld) [#/Vol] 4.59 10*6/uL 4.2-5.4 [facility] Serum DNA double strand anti body assay (units/volume)Ordered By: Darcy Fox on 11-06-2024 DNA double strand Ab Qn (S) [facility] Comment on above: Test not performed Serum IgG subclass 1 measure ment (mass/volume)Ordered By: Darcy Fox on 11-06-2024 IgG subclass 1 (S) [Mass/Vol] 552 mg/dL 325-846 [facility] Serum IgG subclass 2 measure ment (mass/volume)Ordered By: Darcy Fox on 11-06-2024 IgG subclass 2 (S) [Mass/Vol] 234 mg/dL 133-509 [facility] Serum IgG subclass 3 measure ment (mass/volume)Ordered By: Darcy Fox on 11-06-2024 IgG subclass 3 (S) [Mass/Vol] 23 mg/dL 19-109 [facility] Serum Scl-70 antibody assay (units/volume)Ordered By: Darcy Fox on 11-06-2024 SCL-70 extractable nuclear Ab Qn (S) [facility] Comment on above: Test not performed Serum creatinine measurement (mass/volume)Ordered By: Darcy Fox on 11-06-2024 Creatinine [Mass/Vol] 0.66 mg/dL Low 0.70-1.20 [facility] Serum globulin measurementOr dered By: Darcy Fox on 11-06-2024 Globulin (S) [Mass/Vol] 3.0 g/dL 2.2-4.2 [facility] Serum glucose measurement (m ass/volume)Ordered By: Darcy Fox on 11-06-2024 Glucose [Mass/Vol] 79 mg/dL 70-99 [facility] Serum hepatitis B virus core antibody detectionOrdered By: Darcy Fox on 11-06-2024 HBV core Ab Ql (S) Negative Negative [facility] Serum hepatitis B virus surf dharmesh antibody detectionOrdered By: Darcy Fox on 11-06-2024 HBV surface Ab Ql (S) Non-Reactive [facility] Comment on above: <8.5 mIU/mL: Non-Smiley ctive8.5<= x <11.5 mIU/mL: Indeterminate>=11.5 mIU/mL: Reactive Non Reactive: Inconsistent with immunity less than <10 mIU/mL Reactive: Consistent with immunity greater than or equal to 10 mIU/mL Serum mitochondria antibody detectionOrdered By: Darcy Fox on 11-06-2024 Mitochondria Ab Ql (S) <20.0 Units 0.0-20.0 [facility] Comment on above: Negative 0.0 - 20.0 Equivocal 20.1 - 24.9 Positive >24.9Mitochondrial (M2) Antibodies are found in 90-96% ofpatients with primary biliary cirrhosis. Serum or plasma IgG measurem ent (mass/volume)Ordered By: Darcy Fox on 11-06-2024 IgG [Mass/Vol] 1088 mg/dL 719-1475 [facility] Serum or plasma actin IgG an tibody assay (units/volume)Ordered By: Darcy Fox on 11-06-2024 Actin IgG Qn 3 Units 0-19 [facility] Comment on above: Negative 0 - 19 Weak positive 20 - 30 Moderate to strong positive >30 Actin Antibodies are found in 52-85% of patients with autoimmune hepatitis or chronic active hepatitis and in 22% of patients with primary biliary cirrhosis. Serum or plasma alanine mott otransferase (ALT) measurementOrdered By: Darcy Fox on 11-06-2024 ALT [Catalytic activity/Vol] 14 U/L <35 [facility] Serum or plasma albumin med urement (mass/volume)Ordered By: Darcy Fox on 11-06-2024 Albumin [Mass/Vol] 4.2 g/dL 3.5-5.0 [facility] Serum or plasma alkaline matilde sphatase measurementOrdered By: Darcy Fox on 11-06-2024 ALP [Catalytic activity/Vol] 78 U/L 35-104 [facility] Serum or plasma calcium med urement (mass/volume)Ordered By: Darcy Fox on 11-06-2024 Calcium [Mass/Vol] 9.6 mg/dL 7.6-11.0 [facility] Serum or plasma urea nitroge n measurement (mass/volume)Ordered By: Darcy Fox on 11-06-2024 Urea nitrogen [Mass/Vol] 11 mg/dL 4-19 [facility] Sodium levelOrdered By: Jolanta Fox on 11-06-2024 Sodium [Moles/Vol] 139 mmol/L 133-145 [facility] Total proteinOrdered By: Tracee Fox on 11-06-2024 Protein [Mass/Vol] 7.1 g/dL 5.9-8.4 [facility] White blood cell (WBC) count Ordered By: Darcy Fox on 11-06-2024 WBC (Bld) [#/Vol] 5.0 10*3/uL 4.4-11.0 [facility] Hepatitis Panel Acuteon 09-20 COMMENT Comment Normal . [facility] Comment on above: Order Comment: Order Date: 10/01/24 Order Info: [id number] - HEPATITIS ACUTE PANEL Result Comment: Not infected with HCV unless early or acute infection is suspected (which may be delayed in an immunocompromised individual), or other evidence exists to indicate HCV infection. Performed at: [facility] [id number] Application Integration Engineer: Sandeep Kruger PhD, Phone: [phone] Performed By: #### L 3000.0375 #### [facility] [address] [place], [place], [id number] HEP B CORE,IgM Negative Normal Negative [facility] Comment on above: Order Comment: Order Date: 10/01/24 Order Info: [id number] - HEPATITIS ACUTE PANEL Performed By: #### L 3000.0375 #### [facility] [address] [place], [place], [id number] HEP B SURF AG Negative Normal Negative [facility] Comment on above: Order Comment: Order Date: 10/01/24 Order Info: [id number] - HEPATITIS ACUTE PANEL Performed By: #### L 3000.0375 #### [facility] [address] [place], [place], [id number] HEP C VIRUS AB Non-Reactive Normal Non Reactive [facility] Comment on above: Order Comment: Order Date: 10/01/24 Order Info: [id number] - HEPATITIS ACUTE PANEL Performed By: #### L 3000.0375 #### [facility] [address] [place], [address] HEPATITIS A-IgM Negative Normal Negative [facility] Comment on above: Order Comment: Order Date: 10/01/24 Order Info: [id number] - HEPATITIS ACUTE PANEL Result Comment: A ne gative anti-HAV IgM result suggests no recent or current HAV infection. Performed By: #### L 3000.0375 #### [facility] [address] [place], [address] Abdomen Limitedon 10-04-2024 Abdomen Limited [facility] [address] [place], [place] [address] Abdomen Limited MR#: [id number] Acct: [id number] Name: NIKKI THACKER Rep #: [id number] : 2005 F 19 From: Brian dunham MD PCP: Dr. Ana Leija MD Status: REG CLI Study: Abdomen Limited Date of Exam: 10/04/24 Exam# [id number] Ordering Dr: Aaron Lomas NP, NP -Robert PROCEDURE: ABDOMEN LIMITED 10/04/2024 REASON FOR EXAM: ABN BLOOD FINDINGS BLOOD CHEMISTRY COMPARISON: None FINDINGS: Liver: Grossly normal size and echotexture. There is a 2.9 cm x 2 cm x 1.2 cm echogenic nodule in the right lobe of the liver suggestive of a hemangioma. Gallbladder: No stones, sludge, wall thickening or tenderness. Common bile duct: Normal measuring 3 mm. . Pancreas: Visualized portions are sonographically unremarkable. Other: The right kidney measures 10.6 cm x 5 cm x 3.5 cm. Renal cortex measures 1.1 cm. US/Abdomen Limited IMPRESSION: Findings suggestive of a 2.9 cm x 2 cm x 1.2 cm hemangioma in the right lobe of the liver. Reading Location: [id number] CC: Aaron Lomas; Dr. Ana Leija MD Animal Pathology Teacher: Signed Normal [facility] Acetaminophen (Tylenol) Caleb stephenson 10-04-2024 Acetaminophen [Mass/Vol] ug/mL Low 8.0-19.0 [facility] Comment on above: Order Comment: Order Date: 10/01/24 Order Info: [id number] - ACETO Result Comment: Acet aminophen concentrations > 200 ug/mL four hours after ingestion, > 100 ug/mL eight hours after ingestion, and > 50 ug/mL 12 hours after ingestion are potentially toxic. Performed By: #### L 501.8400 #### [facility] [address] [place], [place], [address] Hepatitis C Antibodyon 10-04 Hepatitis C Ab Non-Reactive Normal Nonreactive [facility] Comment on above: Result Comment: Reac tive: Presumptive evidence of antibodies to HCV. Follow CDC recommendations for supplemental testing. Non-Reactive: Antibodies to HCV were not detected; does not exclude the possibility of exposure to HCV Reactive Results are presumptive evidence of antibodies to HCV. Follow CDC recommendations for supplemental testing. Order confirmation testing: HCV Quant by PCR testing - HCVPCR #[id number] Non Reactive: < 0.8 Equivocal: >/= 0.8 to < 1.0 Reactive: >/= 1.0 The CDC requires that a reactive/equivocal HCV antibody result be sent out for confirmation. HCV Quant by PCR testing. Performed By: #### L 3890.6301, L3890.6102 #### [facility] [address] [place], [place], [address] L3890.6102on 10-04-2024 HEP B Surf Ag Non-Reactive Normal Nonreactive [facility] Comment on above: Result Comment: Reac tive: Presumptive evidence of HBV. Repeatedly reactive samples must be confirmed using a neutralization test ([employer] HBsAg Confirmatory Test) Non-Reactive: HBsAg not detected; does not exclude the possibility of exposure to HBV Performed By: #### L 3890.6301, L3890.6102 #### [facility] [address] [place], [place], [address] Laboratory - Microbiology an d Antimicrobial susceptibilityOrdered By: Aaron Lomas on 10-04-2024 HBV surface Ag Ql (S) Non-Reactive Nonreactive [facility] Comment on above: Reactive: Presumptiv e evidence of HBV. Repeatedly reactive samples must be confirmed using a neutralization test ([employer] HBsAg Confirmatory Test)Non-Reactive: HBsAg not detected; does not exclude the possibility of exposure to HBV No Panel InformationOrdered By: Aaron Lomas on 10-04-2024 Hepatitis C Antibody Comment Comment . [facility] Comment on above: Not infected with HC V unless early or acute infection issuspected (which may be delayed in an immunocompromisedindividual), or other evidence exists to indicate HCVinfection.Performed at: [place] [facility] [id number] Director: Sandeep Kruger PhD, Phone: [phone] Serum or plasma acetaminophe n measurement (mass/volume)Ordered By: Aaron Lomas on 10-04-2024 Acetaminophen [Mass/Vol] ug/mL Low 8.0-19.0 [facility] Comment on above: Acetaminophen concen trations > 200 ug/mL four hours after ingestion, > 100 ug/mL eight hours after ingestion, and > 50 ug/mL 12 hours after ingestion are potentially toxic. Anion gap in Serum or Plasma Ordered By: Aaron oLmas on 09-28-2024 Anion gap [Moles/Vol] 11 mmol/L - [facility] BUN/creatinine ratioOrdered By: Aaron Lomas on 09-28-2024 Urea nitrogen/Creatinine [Mass ratio] 22.4 mg/mg High - [facility] Bilirubin, totalOrdered By: Aaron Lomas on 09-28-2024 Bilirubin [Mass/Vol] 0.59 mg/dL 0.00-1.30 [facility] CBC-Complete Blood Cnt No Di ffon 09-28-2024 Erythrocyte distribution width (RBC) [Ratio] 12.0 % Normal 11.6-14.6 [facility] Comment on above: Order Comment: Order Date: 09/28/24 Order Info: [id number] - CBC Performed By: #### L 100.0500 #### [facility] [place], [address] Hematocrit (Bld) [Volume fraction] 38.8 % Normal 37-47 [facility] Comment on above: Order Comment: Order Date: 09/28/24 Order Info: [id number] - CBC Performed By: #### L 100.0500 #### [facility] [address] [place], [address] Hemoglobin (Bld) [Mass/Vol] 13.3 g/dL Normal 12.0-15.0 [facility] Comment on above: Order Comment: Order Date: 09/28/24 Order Info: [id number] - CBC Performed By: #### L 100.0500 #### [facility] [address] [place], [address] MCH (RBC) [Entitic mass] 29.5 pg Normal 27.0-32.0 [facility] Comment on above: Order Comment: Order Date: 09/28/24 Order Info: [id number] - CBC Performed By: #### L 100.0500 #### [facility] [address] [place], [address] MCHC (RBC) [Mass/Vol] 34.3 g/dL Normal 32-36 [facility] Comment on above: Order Comment: Order Date: 09/28/24 Order Info: [id number] - CBC Performed By: #### L 100.0500 #### [facility] [address] [place], [address] MCV (RBC) [Entitic vol] 86.0 fL Normal 81-99 [facility] Comment on above: Order Comment: Order Date: 09/28/24 Order Info: [id number] - CBC Performed By: #### L 100.0500 #### [facility] [address] [place], [address] Platelet mean volume (Bld) [Entitic vol] 10.0 fL Normal 6.2-12.0 [facility] Comment on above: Order Comment: Order Date: 09/28/24 Order Info: [id number] - CBC Performed By: #### L 100.0500 #### [facility] [address] [place], [address] Platelets (Bld) [#/Vol] 281 10*3/uL Normal 150-450 [facility] Comment on above: Order Comment: Order Date: 09/28/24 Order Info: [id number] - CBC Performed By: #### L 100.0500 #### [facility] [address] [place], [address] RBC (Bld) [#/Vol] 4.51 10*6/uL Normal 4.2-5.4 [facility] Comment on above: Order Comment: Order Date: 09/28/24 Order Info: [id number] - CBC Performed By: #### L 100.0500 #### [facility] [address] [place], [address] RDW SD 38.0 fl Normal 35.1-43.9 [facility] Comment on above: Order Comment: Order Date: 09/28/24 Order Info: 66450-3 - CBC Performed By: #### L 100.0500 #### [facility] [address] [place], [address] WBC (Bld) [#/Vol] 6.6 10*3/uL Normal 4.4-11.0 [facility] Comment on above: Order Comment: Order Date: 09/28/24 Order Info: [id number] - CBC Performed By: #### L 100.0500 #### [facility] [address] [place], [address] Carbon dioxide, total [Moles /volume] in Central venous bloodOrdered By: Aaron McMorrow on 09-28-2024 CO2 [Moles/Vol] 22.4 mmol/L 21.0-32.0 [facility] Chloride assayOrdered By: An gel McMorrow on 09-28-2024 Chloride [Moles/Vol] 104 mmol/L 98-108 [facility] Comprehensive Metabolic Prof ilon 09-28-2024 Albumin [Mass/Vol] 4.0 g/dL Normal 3.5-5.0 [facility] Comment on above: Order Comment: Order Date: 09/28/24 Order Info: 0786-1 - CMP Order Info: 301-3 - TSH Performed By: #### L 500.4050 #### [facility] [address] [place], [address] Albumin/Globulin [Mass ratio] 1.3 {ratio} Normal 0.9-2.4 [facility] Comment on above: Order Comment: Order Date: 09/28/24 Order Info: 0786-1 - CMP Order Info: 3 - TSH Performed By: #### L 500.4050 #### [facility] [address] [place], [address] ALK PHOS 129 U/L High 35-104 [facility] Comment on above: Order Comment: Order Date: 09/28/24 Order Info: 0786-1 - CMP Order Info: 3 - TSH Performed By: #### L [id number] #### [facility] [address] [place], [address] ALT [Catalytic activity/Vol] 780 U/L High <=34 [facility] Comment on above: Order Comment: Order Date: 09/28/24 Order Info: 0786-1 - CMP Order Info: 301-3 - TSH Performed By: #### L [id number] #### [facility] [address] [place], [address] AST [Catalytic activity/Vol] 298 U/L High <=31 [facility] Comment on above: Order Comment: Order Date: 09/28/24 Order Info: 0786-1 - CMP Order Info: 3016-3 - TSH Performed By: #### L [id number] #### [facility] [address] [place], [address] Bilirubin [Mass/Vol] 0.59 mg/dL Normal 0.00-1.30 [facility] Comment on above: Order Comment: Order Date: 09/28/24 Order Info: 0786-1 - CMP Order Info: 3015-3 - TSH Performed By: #### L [id number] #### [facility] [address] [place], [address] BUN/CRE 22.4 RATIO High 10-20 [facility] Comment on above: Order Comment: Order Date: 09/28/24 Order Info: 0786-1 - CMP Order Info: 3 - TSH Performed By: #### L [id number] #### [facility] [address] [place], [address] Calcium [Mass/Vol] 9.6 mg/dL Normal 7.6-11.0 [facility] Comment on above: Order Comment: Order Date: 09/28/24 Order Info: 0786-1 - CMP Order Info: 3 - TSH Performed By: #### L [id number] #### [facility] [address] [place], [address] Chloride [Moles/Vol] 104 mmol/L Normal 98-108 [facility] Comment on above: Order Comment: Order Date: 09/28/24 Order Info: 0786-1 - CMP Order Info: 3 - TSH Performed By: #### L [id number] #### [facility] [address] [place], [address] CO2 [Moles/Vol] 22.4 mmol/L Normal 21.0-32.0 [facility] Comment on above: Order Comment: Order Date: 09/28/24 Order Info: 0786-1 - CMP Order Info: 3015-3 - TSH Performed By: #### L [id number] #### [facility] [address] [place], [address] Creatinine [Mass/Vol] 0.60 mg/dL Low 0.70-1.20 [facility] Comment on above: Order Comment: Order Date: 09/28/24 Order Info: 0786-1 - CMP Order Info: 3015-07 - TSH Performed By: #### L [id number] #### [facility] [address] [place], [address] GAP 11 Normal 5-15 [facility] Comment on above: Order Comment: Order Date: 09/28/24 Order Info: 0786- - CMP Order Info: 3015-07 - TSH Performed By: #### L [id number] #### [facility] [address] [place], [address] GFR/1.73 sq M.predicted among non-blacks MDRD (S/P/Bld) [Vol rate/Area] 132 mL/min/{1.73_m2} Normal >60 [facility] Comment on above: Order Comment: Order Date: 09/28/24 Order Info: 0786- - [facility] Order Info: 3015-07 - TSH Result Comment: mL/m in/1.73m2 CKD-EPI Creatinine Equation (2020) Performed By: #### L [id number] #### [facility] [address] [place], [address] Globulin (S) [Mass/Vol] 3.1 g/dL Normal 2.2-4.2 [facility] Comment on above: Order Comment: Order Date: 09/28/24 Order Info: 0786- - CMP Order Info: [id number] - TSH Performed By: #### L [id number] #### [facility] [address] [place], [address] Glucose [Mass/Vol] 102 mg/dL High 70-99 [facility] Comment on above: Order Comment: Order Date: 09/28/24 Order Info: 0786-1 - CMP Order Info: 3013 - TSH Performed By: #### L [id number] #### [facility] [address] [place], [address] Potassium [Moles/Vol] 3.4 mmol/L Normal 3.3-5.1 [facility] Comment on above: Order Comment: Order Date: 09/28/24 Order Info: 0786-1 - CMP Order Info: 3016-3 - TSH Performed By: #### L [id number] #### [facility] [address] [place], [address] Sodium [Moles/Vol] 137 mmol/L Normal 133-145 [facility] Comment on above: Order Comment: Order Date: 09/28/24 Order Info: 0786-1 - [facility] Order Info: 3016-3 - TSH Performed By: #### L [id number] #### [facility] [address] [place], [address] T PROT 7.1 g/dL Normal 5.9-8.4 [facility] Comment on above: Order Comment: Order Date: 09/28/24 Order Info: 0786-1 - [facility] Order Info: 3016-3 - TSH Performed By: #### L [id number] #### [facility] [address] [place], [address] Urea nitrogen [Mass/Vol] 14 mg/dL Normal 4-19 [facility] Comment on above: Order Comment: Order Date: 09/28/24 Order Info: 0786-1 - CMP Order Info: 3016-3 - TSH Performed By: #### L [id number] #### [facility] [address] [place], [address] Erythrocyte distribution wid th ratioOrdered By: Aaron Lomas on 09-28-2024 Erythrocyte distribution width (RBC) [Ratio] 12.0 % 11.6-14.6 [facility] Erythrocyte distribution wid th standard deviationOrdered By: Aaron Lomas on 09-28-2024 Erythrocyte distribution width (RBC) [Ratio] 38.0 fl 35.1-43.9 [facility] Glomerular filtration rate ( GFR) estimation/1.73 sq m using serum, plasma, or whole bOrdered By: Aaron Lomas on 09-28-2024 GFR/1.73 sq M.predicted among non-blacks MDRD (S/P/Bld) [Vol rate/Area] 132 mL/min/{1.73_m2} >60 [facility] Comment on above: mL/min/1.73m2 CKD-EP I Creatinine Equation (2020) Hematocrit Auto (Bld) [Volum e fraction]Ordered By: Aaron Lomas on 09-28-2024 Hematocrit (Bld) [Volume fraction] 38.8 % 37-47 [facility] Hemoglobin measurementOrdere d By: Aaron Lomas on 09-28-2024 Hemoglobin (Bld) [Mass/Vol] 13.3 g/dL 12.0-15.0 [facility] - Chemistry and C hemistry - challengeOrdered By: Aaron Lomas 09-28-2024 AST [Catalytic activity/Vol] 298 U/L High <32 [facility] MCV (mean corpuscular volume ) determinationOrdered By: [facility] MCV (RBC) [Entitic vol] 86.0 fL 81-99 [facility] Mean corpuscular hemoglobin (MCH) determinationOrdered By: [facility] 09-28-2024 MCH (RBC) [Entitic mass] 29.5 pg 27.0-32.0 [facility] Mean corpuscular hemoglobin concentration (MCHC) determinationOrdered By: Aaron Lomas 09-28-2024 MCHC (RBC) [Mass/Vol] 34.3 g/dL 32-36 [facility] Mean platelet volume determi nationOrdered By: Aaron Lomas 09-28-2024 Platelet mean volume (Bld) [Entitic vol] 10.0 fL 6.2-12.0 [facility] Platelet countOrdered By: An gel Baron on 09-28-2024 Platelets (Bld) [#/Vol] 281 10*3/uL 150-450 [facility] Potassium measurement (mass/ volume)Ordered By: Aaron Lomas 09-28-2024 Potassium (Unsp spec) [Mass/Vol] 3.4 mmol/L 3.3-5.1 [facility] RBC Auto (Bld) [#/Vol]Ordere d By: Aaron Lomas on 09-28-2024 RBC (Bld) [#/Vol] 4.51 10*6/uL 4.2-5.4 [facility] Serum creatinine measurement (mass/volume)Ordered By: Aaron Lomas 09-28-2024 Creatinine [Mass/Vol] 0.60 mg/dL Low 0.70-1.20 [facility] Serum globulin measurementOr dered By: Aaron Lomas 09-28-2024 Globulin (S) [Mass/Vol] 3.1 g/dL 2.2-4.2 [facility] Serum glucose measurement (m ass/volume)Ordered By: Aaron Lomas 09-28-2024 Glucose [Mass/Vol] 102 mg/dL High 70-99 [facility] Serum or plasma alanine mott otransferase (ALT) measurementOrdered By: Aaron Lomas 09-28-2024 ALT [Catalytic activity/Vol] 780 U/L High <35 [facility] Serum or plasma albumin med urement (mass/volume)Ordered By: Aaron Lomas 09-28-2024 Albumin [Mass/Vol] 4.0 g/dL 3.5-5.0 [facility] Serum or plasma albumin/glob ulin mass ratioOrdered By: Aaron Lomas 09-28-2024 Albumin/Globulin [Mass ratio] 1.3 {ratio} 0.9-2.4 [facility] Serum or plasma alkaline matilde sphatase measurementOrdered By: Aaron Lomas 09-28-2024 ALP [Catalytic activity/Vol] 129 U/L High 35-104 [facility] Serum or plasma calcium med urement (mass/volume)Ordered By: Aaron Lomas 09-28-2024 Calcium [Mass/Vol] 9.6 mg/dL 7.6-11.0 [facility] Serum or plasma urea nitroge n measurement (mass/volume)Ordered By: Aaron Lomas 09-28-2024 Urea nitrogen [Mass/Vol] 14 mg/dL 4-19 [facility] Sodium levelOrdered By: Sheree Lomas on 09-28-2024 Sodium [Moles/Vol] 137 mmol/L 133-145 [facility] TSH DL <= 0.005 mIU/L QnOrde red By: Aaron Lomas on 09-28-2024 TSH Qn 0.953 uIU/mL 0.500-4.300 [facility] Thyroid Stim Hormone (TSH)on 09-28-2024 TSH 0.953 uIU/mL Normal 0.500-4.300 [facility] Comment on above: Order Comment: Order Date: 09/28/24 Order Info: 0786-1 - [facility] Order Info: 3016-3 - TSH Performed By: #### L 501.9520 #### [facility] [address] [place], [place], [id number] Total proteinOrdered By: Immanuel Lomas on 09-28-2024 Protein [Mass/Vol] 7.1 g/dL 5.9-8.4 [facility] Vitamin D,25 Hydroxyon 09-28 Vitamin D 25-OH 37.3 ng/mL Normal 30-100 [facility] Comment on above: Order Comment: Order Date: 09/28/24 Order Info: 0786-1 - [facility] Order Info: 3016-3 - TSH Result Comment: Polina min D Status Deficiency: <20 ng/mL (50nmol/L) Insufficiency: 20-30 ng/mL (50-75 nmol/L) Sufficiency: 30-100 ng/mL (75-250 nmol/L) Toxicity: >100 ng/mL (>250 nmol/L) Performed By: #### L 506.1001 #### [facility] [address] [place], [place], [id number] White blood cell (WBC) count Ordered By: Aaron Lomas on 09-28-2024 WBC (Bld) [#/Vol] 6.6 10*3/uL 4.4-11.0 [facility] CNOVon 09-25-2024 CNOV Office Visit (OBGYWM ) ----- NIKKI THACKER ([id number]) 5 F Date Time Provider Department 09/25/24 10:45 AM ELSA NEWSOME During your visit today, we recorded the following information about you: Blood pressure Weight Last Period 69.4 kg 09/04/24 Elsa Newsome APRN.CNM 09/25/2024 12:31 PM Signed Obstetrics and Gynecology [place] ASSIST[employer] AUDITOR Visit Subjective Recording using barcoo software for draft documentation of the visit was discussed with the patient/authorized territory account representative; all questions welcomed and answered. Patient/authorized territory account representative agreed to proceed CHIEF COMPLAINT: control follow up HPI: The patient is a 19-year-old female with a history of PCOS, presenting for follow-up on control use and associated symptoms. The patient was started on Aaron in July to address PCOS, irregular menses, ovarian cysts, and elevated testosterone levels. She reports not completing a full month of the control pack due to experiencing a prolonged menses lasting 2 weeks, characterized by variable flow. Following advice, she paused the control and resumed it with a new pack, currently in the third week. Since resuming Aaron, she reports nausea, dizziness, tachycardia, and constipation. She is also taking phentermine for weight loss, prescribed by Dr. David, and has lost approximately 24 lbs, currently weighing 153 lbs. She notes dietary changes, including reduced intake and healthier food choices, primarily drinking water instead of soda. She denies using condoms during intercourse and is not primarily using Aaron for contraception. She additionally reports persistent vaginal odor and discharge, initially white and now dark yellow with an odor. She attempted to use Uro pH balancers but experienced nausea and irritation, leading her to use Monistat for suspected yeast infection. She denies using boric acid suppositories previously recommended. She denies cephalalgia, visual changes, chest pain, or leg pain, but notes occasional dyspnea associated with tachycardia. HISTORY: OB History Gravida0 Para0 Term0 Preterm0 AB0 Living0 SAB0 IAB0 Ectopic0 Multiple0 Live Births0 Supervisor Nutritional Ye[employer] History LMP: 09/04/2024 (Within Days), Having periods Age at Menarche: 12 Age at First : Age at Menopause: Supervisor Nutrition[employer] Ye[employer] History Comments: Sexual Activity: Yes; Male Contraception: Pill PAST MEDICAL HISTORY Diagnosis Date NEGATIVE MEDICAL HISTORY PAST SURGICAL HISTORY Procedure Laterality Date COLONOSCOPY - DIAGNOSTIC 08/2022 stomach issues EGD W/O BRSH SPEC VARICIES INJ 08/2022 FAMILY HISTORY Problem Relation Age of Onset Thyroid Mother Social History Tobacco Use Smoking status: Never Smokeless tobacco: Never Vaping Use Vaping status: Never Used Substance Use Topics Alcohol use: Never Drug use: Never Current Outpatient Medications Medication Sig Phentermine HCl 37.5 mg tablet Take 1 tablet by mouth once daily. Drospirenone-Ethinyl Estradiol (AARON, 28,) 3-0.02 mg per tablet Take 1 tablet by mouth once daily. No current facility-administered medications for this visit. ALLERGIES Allergen Reactions Amoxicillin Rash Red Dye Hives, Swelling REVIEW OF SYSTEMS: Constitutional: (+) weight loss Head: (-) headache Eyes: (+) blurred vision Cardiovascular: (+) palpitations, (-) chest pain Respiratory: (+) shortness of breath Gastrointestinal: (+) nausea, (+) constipation Genitourinary: (+) vaginal discharge, (+) vaginal odor, (+) vaginal irritation Musculoskeletal: (-) leg pain Neurological: (+) dizziness Objective SENSITIVE EXAM: Sensitive exam not performed. PHYSICAL EXAM: BP 106/64 Wt 153 lb (69.4kg) LMP 09/04/2024 General: No acute distress. CV: Regular rate and rhythm, no murmurs, gallops, or rubs. Resp: Lungs clear to auscultation bilaterally. Abd: No tenderness, no masses palpated. : No external irritation or lesions noted. Assessment AND Plan ASSESSMENT AND PLAN: 1. PCOS (polycystic ovarian syndrome) (E28.2) Initiated Aaron in July to address irregular menstrual cycles, ovarian cysts, and elevated testosterone levels associated with PCOS. Patient has not completed a full pack of Aaron yet. - Continue Aaron for a minimum of 6 months to allow hormonal regulation. - Educated patient on the importance of consistent use to manage PCOS symptoms and reduce elevated testosterone levels. - Advised patient to take Aaron at bedtime to potentially reduce nausea. 2. Elevated testosterone level (R79.89) Initiated Aaron in July to address irregular menstrual cycles, ovarian cysts, and elevated testosterone levels associated with PCOS. Patient has not completed a full pack of Aaron yet. - Continue Aaron for a minimum of 6 months to allow hormonal regulation. - Educated patient on the importance of consistent use to manage PCOS symptoms and (more content not included)... [facility] ----- NIKKI THACKER ([id number]) 5 F Date Time Provider Department 08/21/24 ELSA NEWSOME During your visit today, we recorded the following information about you: Darcy Fuentes RN 08/21/2024 11:17 AM Signed AMENA patient started on OCP this month. Last menses was 2 months ago. Patient is on her 3rd week of her 1st pack. Has been bleeding for 2 weeks. States she thinks she's about to stop bleeding and then her bleeding increases. Wearing a tampon. Changing every 1/2 hour to 1 hour because they are uncomfortable. Not saturating. Discussed changing to pads for comfort. Has not missed or skipped any pills. Advised that irregular bleeding is normal while adjusting to the hormones especially if her menses are irregular and she hasn't had one in 2 months. Can you please advise in AMENA's absence. Thank you. ROMANA Osuna Renee, APRN.SOL 08/21/2024 1:58 PM Signed Have her stop the pills until this Tuesday then restart with a new pack. Follow up with AMENA. Leatha Hansen APRN.Madeleine Vidal RN 08/21/2024 2:05 PM Signed Left message to call office. ROMANA Seo Tara, RN 08/21/2024 2:17 PM Signed Pt notified. Bleeding precautions reviewed. Appt scheduled with JC. Tray Morgan RN Allergies As of Date: 08/21/2024 Noted Allergy Reaction AMOXICILLIN 04/28/2015 2 - Rash RED DYE 04/28/2015 4 - Hives 7 - Swelling Date Reviewed: 07/31/2024 Reviewed by: Fili Moreno MA - Fully Assessed Reason for Visit: Patient Question [1477] Prescriptions as of 08/21/2024 - Drospirenone-Ethinyl Estradiol (AARON, 28,) 3-0.02 mg per tablet Take 1 tablet by mouth once daily. Problem List As Of Date 08/21/2024 Noted Resolved Ovarian cyst, right [N83.201] 07/26/2024 Adnexal cyst [N94.9] 07/26/2024 Encounter Status:Closed by TRAY MORGAN on 08/21/24 [facility] CNOVon 07-31-2024 CNOV Office Visit (OBGYWM ) ----- NIKKI THACKER ([id number]) 5 F Date Time Provider Department 07/31/24 11:15 AM ELSA NEWSOME OBGYWGuicho During your visit today, we recorded the following information about you: Blood pressure Weight 110/68 77.1 kg Elsa Newsome APRN.CNM 07/31/2024 1:03 PM Signed Nikki Jones Thacker is a 18 year old female who presents for problem visit for . HPI: Presents today for follow up results of labs and ultrasound. Menses: cycles irregular per patient, 3-4 days of flow. Will have menses every 1-3 months. It has been this way for over a year after she stopped control. Denies acne, hirsutism or other concerns. No pelvic pain, pain with intercourse, or bleeding with intercourse. Also complaint of vaginal odor. Had mood swings on patch, cry, depression, weight gain, and didn't feel good when she was on it. Used patch for about a year. OB History Gravida0 Para0 Term0 Preterm0 AB0 Living0 SAB0 IAB0 Ectopic0 Multiple0 Live Births0 Supervisor Nutritional Yeast History LMP: 06/11/2024 (Within Days), Having periods Age at Menarche: 12 Age at First : Age at Menopause: Supervisor Nutritional Ye[employer] History Comments: Sexual Activity: Yes; Male Contraception: None PAST MEDICAL HISTORY Diagnosis Date NEGATIVE MEDICAL HISTORY PAST SURGICAL HISTORY Procedure Laterality Date COLONOSCOPY - DIAGNOSTIC 08/2022 stomach issues EGD W/O BRSH SPEC VARICIES INJ 08/2022 FAMILY HISTORY Problem Relation Age of Onset Thyroid Mother Social History Tobacco Use Smoking status: Never Smokeless tobacco: Never Vaping Use Vaping status: Never Used Substance Use Topics Alcohol use: Never Drug use: Never Current Outpatient Medications Medication Sig XULANE 150-35 mcg/24 hr patch Apply 1 Patch as directed one time a week. (Patient not taking: Reported on 07/19/2024) No current facility-administered medications for this visit. Allergies As of Date: 07/31/2024 Allergen Noted Reaction AMOXICILLIN 04/28/2015 Rash RED DYE 04/28/2015 Hives and Swelling Fully Assessed 07/31/2024 REVIEW OF SYSTEMS Abdomen: No bloating, early satiety, indigestion, or increased flatulence. No abdominal pain, nausea, vomiting, diarrhea, or constipation. Bladder: No dysuria, gross hematuria, urinary frequency, urinary urgency, or incontinence. Breast: No breast lumps, nipple d/c, overlying skin changes, redness or skin retraction. Expanded ROS: N/A Allergies and current medication updated:Yes SENSITIVE EXAM: The sensitive examination was discussed with the Patient or Patient's Authorized Medical Care Manager. As applicable, any other physician, advance practice provider, medical student, or other health professional student that will be observing or involved in the sensitive examination for educational or training purposes was discussed with the Patient or Authorized Medical Care Manager. The Patient or Authorized Medical Care Manager has agreed to proceed with the sensitive examination. (Sensitive examination includes inspection and/or palpation of the breasts, pelvis, prostate and anorectal regions). EXAM: BP 110/68 Wt 170 lb (77.1kg) LMP 06/11/2024 GENERAL: pleasant, female in no apparent distress HEENT: Normocephalic and atraumatic NECK: Supple, full range of motion NEURO: alert and oriented x3,exam grossly non-focal EXTREMITIES: normal Latest Ref Rng 07/19/2024 Testosterone, Total, S 10.0 - 55.0 ng/dL 39.3 Testosterone, Free, S 0.10 - 0.85 ng/dL 1.01 (H) Testosterone, % Free, S 0.50 - 2.80 % 2.57 Hemoglobin A1C 4.3 - 5.6 % 4.8 Estimated Average Glucose mg/dL 91 TSH 0.510 - 4.300 mIU/L 1.590 Prolactin 4.4 - 33.8 ng/mL 16.6 DHEA-S 65.1 - 368.0 ug/dL 111.1 Hydroxyprogesterone <=206.00 ng/dL 41.47 Legend: (H) High Indication Abnormal uterine bleeding, irregular cycles Impression The uterus is anteverted and measures 78 mm x 30 mm x 43 mm. The endometrial thickness is 8.7 mm. The right ovary measures 51 mm x 43 mm x 39 mm and contains a 45 mm x 38 mm x 35 mm unilocular non-simple cyst (internal debris and/or incomplete septation) with smooth inner wall. O-RADS 2 There is a right adnexal unilocular simple adnexal cyst that measures 13.8 mm x 11.2 mm x 10.9 mm. The left ovary measures 33 mm x 24 mm x 20 mm. There is free fluid visualized. Recommendations O-RADS 2 ovarian lesion, non-simple cyst, almost certainly benign. Follow up ultrasound is recommended in 6 months. Simple adnexal cyst, no follow up imaging is needed. Assessment AND Plan Class 1 obesity without serious comorbidity with body mass index (BMI) of 30.0 to 30.9 in adult, unspecified obesity type Orders: Drospirenone-Ethinyl Estradiol (AARON, 28,) 3-0.02 mg per tablet; Take 1 tablet by mouth once daily. CONSULT TO [facility] WEIGHT MANAGEMENT PROGRAM; Future PCOS (polycystic ovarian syndrome) Orders: Drospirenone-Ethinyl Estradiol ( (more content not included)... Normal [facility] Paramjit 07-31-2024 GRETCHEN Telephone (WOOB) ----- NIKKI THACKER ([id number]) 5 F Date Time Provider Department 07/31/24 ELSA NEWSOME During your visit today, we recorded the following information about you: Gladys Sanchez 07/31/2024 5:08 PM Signed Patient called requesting CPT and DX codes for weight prabhakar Patient wants to make sure ins will cover that Please advise Darcy Fuentes RN 08/01/2024 8:28 AM Signed Patient has a new wt management in November. What CPT and DX codes to you give to patient's when they want to check with their insurance about coverage? Thank you. Darcy Fuentes, RN Carol Cruz MD 08/01/2024 8:59 AM Signed I typically bill based on their co morbidities like PCOS, fatigue, HTN, pain etc- things we are trying to help correct or improve. Sometimes I won't know until I see her. Allergies As of Date: 07/31/2024 Noted Allergy Reaction AMOXICILLIN 04/28/2015 2 - Rash RED DYE 04/28/2015 4 - Hives 7 - Swelling Date Reviewed: 07/31/2024 Reviewed by: Fili Moreno MA - Fully Assessed Reason for Visit: Patient Question [0755] Cmt: CPT and DX codes Prescriptions as of 08/01/2024 - Drospirenone-Ethinyl Estradiol (Saima WALKER,) 3-0.02 mg per tablet Take 1 tablet by mouth once daily. Problem List As Of Date 07/31/2024 Noted Resolved Ovarian cyst, right [N83.201] 07/26/2024 Adnexal cyst [N94.9] 07/26/2024 Encounter Status:Closed by USHA JANG on 08/01/24 [facility] Paramjit 07-27-2024 CNPN Telephone (OBGYWM) ----- NIKKI THACKER ([id number]) 5 F Date Time Provider Department 07/27/24 ELSA NEWSOME During your visit today, we recorded the following information about you: Anika Davenport LPN 07/27/2024 4:08 PM Signed Patient called stating that she [place] her [place] and would like provider to review. Elsa Newsome APRN.CNM 07/27/2024 4:41 PM Signed My chart sent to patient and order placed for follow up in 6 months. Elsa Newsome APRN.CNM Allergies As of Date: 07/27/2024 Noted Allergy Reaction AMOXICILLIN 04/28/2015 2 - Rash RED DYE 04/28/2015 4 - Hives 7 - Swelling Date Reviewed: 07/19/2024 Reviewed by: Fili Moreno MA - Fully Assessed Reason for Visit: Results [95] Prescriptions as of 07/27/2024 - XULANE 150-35 mcg/24 hr patch Apply 1 Patch as directed one time a week. Problem List As Of Date 07/27/2024 Noted Resolved Ovarian cyst, right [N83.201] 07/26/2024 Adnexal cyst [N94.9] 07/26/2024 Encounter Status:Closed by MADELEINE ROTHMAN on 07/27/24 Normal [facility] US Pelvison 07-26-2024 Indication Abnormal uterine bleeding, irregular cycles Impression The uterus is anteverted and measures 78 mm x 30 mm x 43 mm. The endometrial thickness is 8.7 mm. The right ovary measures 51 mm x 43 mm x 39 mm and contains a 45 mm x 38 mm x 35 mm unilocular non-simple cyst (internal debris and/or incomplete septation) with smooth inner wall. O-RADS 2 There is a right adnexal unilocular simple adnexal cyst that measures 13.8 mm x 11.2 mm x 10.9 mm. The left ovary measures 33 mm x 24 mm x 20 mm. There is free fluid visualized. Recommendations O-RADS 2 ovarian lesion, non-simple cyst, almost certainly benign. Follow up ultrasound is recommended in 6 months. Simple adnexal cyst, no follow up imaging is needed. Menstrual History Cycle: LMP date not known, irregular cycle. Contraception: none Method Transabdominal, transvaginal, 3D ultrasound examination, Color Doppler examination. View: Adequate visualization Uterus Uterus: Visualized Uterus position: anteverted Description of uterine malformations: none Myometrium: normal Endometrium: three-layer pattern Cervix details: cystic lesions identified suggesting superficial Nabothian cysts Uterus length 78 mm Uterus width 43 mm Uterus height 30 mm Uterus Vol 52.7 cm Endometrial thickness, total 8.7 mm Fibroids: No fibroids identified Polyps: No polyps identified Right Ovary Rt ovary: Visualized Rt ovary D1 51 mm Rt ovary D2 43 mm Rt ovary D3 39 mm Rt ovary Vol 45.2 cm Rt ovarian cyst(s): Cysts identified Rt ovarian cyst D1 45 mm Rt ovarian cyst D2 38 mm Rt ovarian cyst D3 35 mm Rt ovarian cyst mean 39.3 mm Rt ovarian cyst vol 31.337 cm Rt ovarian cyst findings: Unilocular non-simple cyst (internal debris and/or incomplete septation) with smooth inner wall Right Adnexal Mass Findings: unilocular cyst. Size 13.8 mm x 11.2 mm x 10.9 mm. Mean 12.0 mm. Vol 0.882 cm . Findings consistent with a simple benign adnexal cyst Left Ovary Lt ovary: Visualized Lt ovary morphology: premenopausal normal follicular Lt ovary D1 33 mm Lt ovary D2 24 mm Lt ovary D3 20 mm Lt ovary Vol 8.1 cm Cul de Sac Visualized. free fluid visualized: trace Performed By: Kasandra Hopper RDMS Read By: Lul Purdy M.D. MATERNAL MEDICINE [facility] Radiology Study observation (narrative) [facility] BACTERIAL VAGINOSIS NAATon 0 07-19-2024 Lactobacillus crispatus+gasseri+jense lucho + Gardnerella vaginalis + Atopobium vaginae rRNA PÉREZ+probe Ql (Vag fld) Not detected Normal Not detected [facility] Comment on above: Order Comment: Speci men Type: SWAB [facility]ing Facility[facility] Address: [address] [place] [address] Performed By: #### B VAMP, CVTV #### [facility] CLIA [id number] [address] [place] [address] [place] C. trachomatis+N. gonorrhoea e DNA PÉREZ+probe Ql (Unsp spec)on 07-19-2024 C. trachomatis rRNA PÉREZ+probe Ql (Unsp spec) Not detected Normal Not detected [facility] Comment on above: Order Comment: Speci men Type: SWAB [facility]ing Facility: [facility] Address: [address] [place] [address] Performed By: #### B VAMP, CVTV #### [facility] CLIA [id number] [address] [place] [address] [place] N. gonorrhoeae rRNA PÉREZ+probe Ql (Unsp spec) Not detected Normal Not detected [facility] Comment on above: Order Comment: Speci men Type: SWAB [facility]ing Facility: [facility] Address: [address] [place] [address] Performed By: #### B VAMP, CVTV #### [facility] CLIA [id number] [address] [place] [address] [place] NIKOLAS/TRICHOMONAS NAATon 0 07-19-2024 C. glabrata RNA PÉREZ+probe Ql (Vag fld) Not detected Normal Not detected [facility] Comment on above: Order Comment: Speci men Type: SWAB [facility]ing Facility: [facility] Address: [address] [place] [address] Performed By: #### B VAMP, CVTV #### [facility] CLIA [id number] [address] [place] [address] [place] Nikolas sp DNA PÉREZ+probe Ql (Vag fld) Not detected Normal Not detected [facility] Comment on above: Order Comment: Speci men Type: SWAB [facility]ing Facility: [facility] Address: [address] [place] [address] Result Comment: The Nikolas species group target includes C. albicans, C. tropicalis, C. parapsilosis, and C. dubliniensis. Performed By: #### B VAMP, CVTV #### [facility] CLIA [id number] [address] [place] [address] [place] T. vaginalis DNA PÉREZ+probe Ql (Unsp spec) Not detected Normal Not detected [facility] Comment on above: Order Comment: Speci men Type: SWAB [facility]ing Facility: [facility] Address: [address] [place] [address] Performed By: #### EMRE VIRKV #### [facility] CLIA [id number] [address] [place] [address] OF [place] CNOVon 07-19-2024 CNOV Office Visit (OBGYWM ) ----- NIKKI THACKER ([id number]) 5 F Date Time Provider Department 07/19/24 8:45 AM ELSA NEWSOME During your visit today, we recorded the following information about you: Blood pressure Weight Height Last Period 108/66 78.9 kg 1.6 m 06/11/24 Elsa Newsome APRN.CNM 07/19/2024 9:13 AM Signed Nikki is a 18 year old who presents for an annual gynecologic exam with complaints, irregular bleeding. Admits to vaginal odor after taking antibiotic for UTI. No urinary complaints at this time. Presents: alone Age at Menarche: 12 Still get period: Yes LMP: 06/11/2024 Menses: cycles irregular per patient, 3-4 days of flow. Will have menses every 1-3 months. It has been this way for over a year after she stopped control. Denies acne, hirsutism or other concerns. No pelvic pain, pain with intercourse, or bleeding with intercourse. Menstrual flow: Moderate Bleeding amount bothersome: No Bleeding between periods: No Period symptoms: Acne, Cramps, and Mood change Sexually active: Yes Contraception: None Contraception frequency: Never HPV vaccine: Yes Last pap smear: never History of abnormal pap: No Colposcopy: No. Leep: No. Cone biopsy: No. Bothersome pelvic pain: No Sexually active: Yes Time with current partner: 3 years, no other sexual partners for her or her partner. 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: Supervisor [employer] History Comments: Sexual Activity: Yes; Male Contraception: None PAST MEDICAL HISTORY Diagnosis Date NEGATIVE MEDICAL HISTORY PAST SURGICAL HISTORY Procedure Laterality Date COLONOSCOPY - DIAGNOSTIC 08/2022 stomach issues EGD W/O BRSH SPEC VARICIES INJ 08/2022 FAMILY HISTORY Problem Relation Age of Onset Thyroid Mother SOCIAL HISTORY Social History Tobacco Use Smoking status: Never Smokeless tobacco: Never Vaping Use Vaping status: Never Used Substance Use Topics Alcohol use: Never Drug use: Never REVIEW OF SYSTEMS Abdomen: No bloating, early satiety, indigestion, or increased flatulence. No abdominal pain, nausea, vomiting, diarrhea, or constipation. Bladder: No dysuria, gross hematuria, urinary frequency, urinary urgency, or incontinence. Breast: No breast lumps, nipple d/c, overlying skin changes, redness or skin retraction. Allergies and current medication updated:Yes SENSITIVE EXAM: The sensitive examination was discussed with the Patient or Patient's Authorized Medical Care Manager. As applicable, any other physician, advance practice provider, medical student, or other health professional student that will be observing or involved in the sensitive examination for educational or training purposes was discussed with the Patient or Authorized Medical Care Manager. The Patient or Authorized Medical Care Manager has agreed to proceed with the sensitive examination. (Sensitive examination includes inspection and/or palpation of the breasts, pelvis, prostate and anorectal regions). EXAM: BP 108/66 Ht 5' 3 (1.60m) Wt 174 lb (78.9kg) LMP 06/11/2024 BMI 30.83 kg/(m2). GENERAL: pleasant, in no apparent distress HEENT: Normocephalic, atraumatic, mucus membranes moist, and no lesions NECK: Supple, full range of motion, no adenopathy, and thyroid normal DERMATOLOGY: Normal, without lesions, non-icteric, and non-hirsute BREAST: soft, non-tender, symmetric, no dominant mass, normal nipple-areolar complex, no lymphadenopathy, and no nipple discharge CHEST: Normal inspiratory effort ABDOMEN: soft, non-tender, and no masses PELVIC: external genitalia normal, normal Bartholin's glands, urethra, Burley's glands, no vulvar lesions, no cervical lesions, good vaginal support, physiologic discharge present, normal appearing perineal body and perianal region. Small amount of carr vaginal discharge, no odor. BIMANUAL: uterus normal size, shape and consistency, no adnexal masses, and non-tender NEURO: alert and oriented x3,exam grossly non-focal EXTREMITIES: normal ASSESSMENT/PLAN: 1. Encounter for gynecological examination (general) (routine) with abnormal findings - ICD9: V72.31, ICD10: Z01.411 (primary diagnosis) - Completed pelvic and breast exam - Encouraged monthly BSE - Follow up for annual exam in one year. 2. Screening for STDs (sexually transmitted diseases) - ICD9: V74.5, ICD10: Z11.3 - NIKOLAS/TRICHOMONAS NAAT - GONORRHEA/CHLAMYDIA NAAT 3. Vaginal odor - ICD9: 625.8, ICD10: N89.8 - BACTERIAL VAGINOSIS NAAT - NIKOLAS/TRICHOMONAS NAAT - GONORRHEA/CHLAMYDIA NAAT 4. Secondary oligomenorrhea - ICD9: 626.1, ICD10: N9 (more content not included)... Normal [facility] DHEA-S [facility] 07-19-2024 DHEA-S [Mass/Vol] 111.1 ug/dL Normal 65.1-368.0 [facility] Comment on above: Order Comment: Speci men Type: SWAB [facility]ing Facility: [facility] Address: [facility] [address], [place] [address] Result Comment: Refe rence ranges are age and gender specific. For additional information, reference range tables can be found in the laboratory test directory. The normal values are based on the following source: Dehydroepiandrosterone sulfate (DHEA S) [package insert V 17.0 [place]]. [facility], [place], [place]: December 2012. Performed By: #### B VAMP, CVTV #### [facility] CLIA [id number] [address] [place] [address] [place] HYDROXYPROGESTERONE-17on 17-HYDROXYPROGESTERONE QUANTITATIVE BY HPLC-MS/MS, SERUM OR PLASMA 41.47 ng/dL Normal <=206.00 [facility] Comment on above: Order Comment: Speci men Type: SWAB Ordering Facility: [facility] Address: [address] [place] [address] Result Comment: INTE RPRETIVE INFORMATION for 17-Hydroxyprogesterone in females: Follicular 15 to 70 ng/dL Luteal 35 to 290 ng/dL REFERENCE INTERVAL: 17-Hydroxyprogesterone Qnt, HPLC-MS/MS Access complete set of age- and/or gender-specific reference intervals for this test in the [facility] Test Directory ([employer]). This test was developed and its performance characteristics determined by [facility]. It has not been cleared or approved by the [place] Food and Drug Administration. This test was performed in a CLIA certified laboratory and is intended for clinical purposes. Performed By: [facility] [address] [place] [id number] Ban[employer] Grader: Kj Cobian MD, PhD [place] Number: [id number] Performed By: #### B VAMP, CVTV #### [facility] CLIA [id number] [address] [place] [address] [place] HbA1c (Bld)on 07-19-2024 Average glucose Estimated from glycated hemoglobin (Bld) [Mass/Vol] 91 mg/dL Normal [facility] Comment on above: Order Comment: Speci men Type: SWAB Ordering Facility: [facility] Address: [address] [place] [address] Result Comment: eAG: (Estimated average glucose) is a calculated value from HgbA1c and is territory account representative of the average blood glucose level in the last 2-3 month period. Performed By: #### B VAMP, CVTV #### [facility] CLIA [id number] [address] [place] [address] [place] HbA1c (Bld) [Mass fraction] 4.8 % Normal 4.3-5.6 [facility] Comment on above: Order Comment: Speci men Type: SWAB [facility] Address: [address] [place] [address] Result Comment: Amer [place] Diabetes Association guidelines indicate that patients with HgbA1c in the range 5.7-6.4% are at increased risk for development of diabetes, and intervention by lifestyle modification may be beneficial. HgbA1c greater or equal to 6.5% is considered diagnostic of diabetes. Performed By: #### B VAMP, CVTV #### [facility] CLIA [id number] [address] [place] [address] [place] Prolactin SerPl-mCncon 07-19 Prolactin [Mass/Vol] 16.6 ng/mL Normal 4.4-33.8 [facility] Comment on above: Order Comment: Speci men Type: SWAB [facility]ing Facility: [facility] Address: [address] [place] [address] Result Comment: Prol actin test is performed using the [facility] Electrochemiluminescence Immunoassay method. Results obtained with different methods or kits cannot be used interchangeably. Performed By: #### B VAMP, CVTV #### [facility] CLIA [id number] [address] [place] [address] [place] TESTOSTERONE, FREE AND TOTAL , BY EQUILIBRIUM ULTRAFILTRATION MASS SPECTROMETRYon 07-19-2024 Testosterone [Mass/Vol] 39.3 ng/dL Normal 10.0-55.0 [facility] Comment on above: Order Comment: Speci men Type: SWAB [facility] Address: [address] [place] [address] Performed By: #### B VAMP, CVTV #### [facility] CLIA [id number] [address] [place] [address] [place] Testosterone Free [Mass/Vol] 1.01 ng/dL High 0.10-0.85 [facility] Comment on above: Order Comment: Speci men Type: SWAB [facility] Address: [address] [place] [address] Performed By: #### B VAMP, CVTV #### [facility] CLIA [id number] [address] [place] [address] [place] Testosterone Free/Testosterone.total [Mass fraction] 2.57 % Normal 0.50-2.80 [facility] Comment on above: Order Comment: Speci men Type: SWAB [facility]: [facility] Address: [address] [place] [address] Performed By: #### B VAMP, CVTV #### [facility] CLIA [id number] [address] [place] [address] [place] TSH SerPl-aCncon 07-19-2024 TSH Qn 1.590 m[IU]/L Normal 0.510-4.300 [facility] Comment on above: Order Comment: Speci men Type: SWAB [facility] Address: [address] [place] [address] Result Comment: If t he patient is , TSH reference range varies by gestational period: First Trimester (weeks 9-12): 0.180-2.990 mIU/L Second Trimester: 0.110-3.980 mIU/L Third Trimester: 0.480-4.710 mIU/L Jonel Norman et al. A Practical Approach for the Verifications and Determination of Site- and Trimester-Specific Reference Intervals for Thyroid Function tests in . Thyroid, 2019:29:3:412-420. Milad E, et al. 2017 Guidelines of the [place] Thyroid Association for the Diagnosis and Management of Thyroid Disease during and the . Thyroid, 2017:27:3:315-389. Reference ranges were not locally established for this patient's age group. The normal values are based on the following source: Jovon Garrett, Geno Eastman. Reference Ranges for Adults and Children: Pre-analytical Considerations. [facility] Performed By: #### B VAMP, CVTV #### [facility] CLIA [id number] [address] [id number] [place] UA DIP, URINE (POC)on 2024 BILIRUBIN UA (POCT) Negative Negative [facility] CLARITY UA (POCT) [facility] COLOR UA (POCT) Yellow [facility] GLUCOSE UA (POCT) Negative Negative mg/dL [facility] Hemoglobin Ql (U) Negative Negative [facility] KETONE UA (POCT) Negative Negative mg/dL [facility] LEUKOCYTES UA (POCT) Negative Negative [facility] NITRITE UA (POCT) Negative Negative [facility] PH UA (POCT) 5.5 4.5 - 8.0 [facility] Protein Ql (U) Negative Negative mg/dL [facility] SPECIFIC GRAVITY UA (POCT) >=1.030 1.005 - 1.030 [facility] UROBILINOGEN UA (POCT) 0.2 Karin l E.U./dL [facility] Location:[facility], [address], [place], [place], [id number] [place] [address] POINT OF CARE [facility] Absolute lymphocyte countOrd ered By: Jose Cruz Bonilla on 01-20-2023 Lymphocytes Auto (Unsp spec) [#/Vol] 1.78 10*3/uL 0.83-4.51 [facility] Basophil percentageOrdered B y: Jose Cruz Bonilla on 01-20-2023 Basophil percentage 0-5 SEEN /hpf 0-5 [facility] Basophils/100 WBC (Bld) 0.3 % 0-1 [facility] Bilirubin [Mass/Vol] 0.30 mg/dL 0.20-1.00 [facility] Comment on above: For patients on eltr ombopag therapy, use of Dimension [place] TBIL is not recommended. Chloride [Moles/Vol] 105 mmol/L 98-107 [facility] Eosinophils/100 WBC (Bld) 0.5 % 0-3 [facility] Glucose [Mass/Vol] 81 mg/dL 74-106 [facility] Neutrophils (Bld) [#/Vol] 3.7 10*3/uL 2.0-7.7 [facility] Neutrophils/100 WBC (Bld) 61.2 % 34-64 [facility] Potassium [Moles/Vol] 3.7 mmol/L 3.5-5.1 [facility] Protein [Mass/Vol] 8.1 g/dL 6.4-8.2 [facility] Sodium [Moles/Vol] 136 mmol/L 136-145 [facility] WBC (Bld) [#/Vol] 6.1 10*3/uL 4.5-13.0 [facility] Beta hCG serum qualOrdered B y: Jose Cruz Bonilla on 01-20-2023 Beta HCG ( test) Ql Negative [facility] Bilirubin Test strip Ql (U)O rdered By: Jose Cruz Bonilla on 01-20-2023 Bilirubin Ql (U) Negative Negative [facility] Blood erythrocytes count (nu mber/volume)Ordered By: Jose Cruz Bonilla on 01-20-2023 RBC (Bld) [#/Vol] 4.52 10*6/uL 4.1-4.8 [facility] Blood hemoglobin measurement (mass/volume)Ordered By: Jose Cruz Bonilla on 01-20-2023 Hemoglobin (Bld) [Mass/Vol] 12.8 g/dL 12.0-15.0 [facility] Blood lymphocytes/100 leukoc ytesOrdered By: Jose Cruz Bonilla on 01-20-2023 Lymphocytes/100 WBC (Bld) 29.3 % 25-45 [facility] Blood monocytes/100 leukocyt esOrdered By: Jose Cruz Bonilla on 01-20-2023 Monocytes/100 WBC (Bld) 8.4 % 3-6 [facility] Blood platelet mean volumeOr dered By: Jose Cruz Bonilla on 01-20-2023 Platelet mean volume (Bld) [Entitic vol] 8.8 fL 6.2-12.0 [facility] Determination of erythrocyte mean corpuscular volume (MCV)Ordered By: Jose Cruz Bonilla on 01-20-2023 MCV (RBC) [Entitic vol] 87.8 fL 78-96 [facility] Direct bilirubinOrdered By: Jose Cruz Bonilla on 01-20-2023 Bilirubin.direct [Mass/Vol] 0.16 mg/dL 0.00-0.30 [facility] Hematocrit Auto (Bld) [Volum e fraction]Ordered By: Jose Cruz Bonilla on 01-20-2023 Hematocrit (Bld) [Volume fraction] 39.7 % 37-46 [facility] Ketones Test strip Ql (U)Ord ered By: Jose Cruz Bonilla on 01-20-2023 Ketones Ql (U) Negative Negative [facility] Laboratory - Chemistry and C hemistry - challengeOrdered By: Jose Cruz Bonilla on 01-20-2023 ALP [Catalytic activity/Vol] 70 U/L 47-119 [facility] ALT [Catalytic activity/Vol] 35 U/L 13-56 [facility] CO2 [Moles/Vol] 27.0 mmol/L 21.0-32.0 [facility] Globulin (S) [Mass/Vol] 4.7 g/dL 2.2-4.2 [facility] Lipase [Catalytic activity/Vol] 58 U/L 13-75 [facility] Comment on above: Please note:LIPASE r evised reference range effective 22. New Lipase methodology. Expected to produce lower values than the previous assay method. NEW Reference Range: 13 - 75 U/L Urea nitrogen/Creatinine [Mass ratio] 21.2 mg/mg 10-20 [facility] Laboratory - Hematology and Cell countsOrdered By: Jose Cruz Bonilla on 01-20-2023 Erythrocyte distribution width (RBC) [Entitic vol] 41.6 fL 35.1-43.9 [facility] Erythrocyte distribution width (RBC) [Ratio] 12.9 % 11.6-14.6 [facility] Immature granulocytes/100 WBC (Bld) 0.300 % 0.0-0.9 [facility] Comment on above: IG% - Immature Granu locytes (promyelocytes, myelocytes and metamyelocytes) > 1% indicates that a LEFT SHIFT is Present. MCH (RBC) [Entitic mass] 28.3 pg 25.0-35.0 [facility] Nucleated RBC/100 WBC (Bld) [Ratio] 0 % 0-5 [facility] MCHC Auto (RBC) [Mass/Vol]Or dered By: Jose Cruz Bonilla on 01-20-2023 MCHC (RBC) [Mass/Vol] 32.2 g/dL 32-36 [facility] Mucus LM Ql (Urine sed)Order ed By: Jose Cruz Bonilla on 01-20-2023 Mucus Ql (Urine sed) 0 SEEN /hpf [facility] Nitrite Test strip Ql (U)Ord ered By: Jose Cruz Bonilla on 01-20-2023 Nitrite Ql (U) Negative Negative [facility] No Panel InformationOrdered By: Jose Cruz Bonilla on 01-20-2023 Estimated Creatinine Clearance Calc 107.17 ml/min [facility] Estimated GFR (MDRD) er [facility] Comment on above: Test not performedAf rican Brazilian GFR Calc Estimated GFR (MDRD) Non-Af [facility] Comment on above: Test not performedNo n- GFR Calc Platelets bldOrdered By: Venita Bonilla on 01-20-2023 Platelets (Bld) [#/Vol] 220 10*3/uL 150-450 [facility] Protein Test strip Ql (U)Ord ered By: Jose Cruz Bonilla on 01-20-2023 Protein Ql (U) Negative Negative [facility] Serum or plasma albumin med urement (mass/volume)Ordered By: Jose Cruz Bonilla on 01-20-2023 Albumin [Mass/Vol] 3.4 g/dL 3.2-5.0 [facility] Serum or plasma calcium med urement (mass/volume)Ordered By: Jose Cruz Bonilla on 01-20-2023 Calcium [Mass/Vol] 9.2 mg/dL 8.5-10.1 [facility] Serum or plasma creatinine m easurement (mass/volume)Ordered By: Jose Cruz Bonilla on 01-20-2023 Creatinine [Mass/Vol] 0.71 mg/dL 0.55-1.02 [facility] Comment on above: The validity of the calculated GFR & GFRAA in patients over 70 years has not been determined. Clinical correlation is essential. Serum or plasma urea nitroge n measurement (mass/volume)Ordered By: Jose Cruz Bonilla on 01-20-2023 Urea nitrogen [Mass/Vol] 15 mg/dL 7-18 [facility] Squamous epithelial cells de tection in urine sediment by light microscopyOrdered By: Jose Cruz Bonilla on 01-20-2023 Epithelial cells.squamous LM Ql (Urine sed) 0-5 SEEN /hpf 5-10 [facility] Thin prep Papanicolaou smear with manual screeningOrdered By: Jose Cruz Bonilla on 01-20-2023 Thin prep Papanicolaou smear with manual screening 19 U/L 15-37 [facility] Thin prep Papanicolaou smear with manual screening 4 5-15 [facility] Urine blood detectionOrdered By: Jose Cruz Bonilla on 01-20-2023 RBC Ql (U) Negative Negative [facility] RBC Ql (U) 0 SEEN /hpf 0-5 [facility] Urine clarityOrdered By: Venita Bonilla on 01-20-2023 Clarity (U) Clear Clear [facility] Urine color determinationOrd ered By: Jose Cruz Bonilla on 01-20-2023 Color (U) Yellow Yellow [facility] Urine glucose detectionOrder ed By: Jose Cruz Bonilla on 01-20-2023 Glucose Ql (U) Normal mg/dl Normal [facility] Urine leukocyte esterase det ection by dipstickOrdered By: Jose Cruz Bonilla on 01-20-2023 Leukocyte esterase Test strip Ql (U) Negative Negative [facility] Urine pHOrdered By: Jose Cruz miller on 01-20-2023 pH (U) 6.0 [pH] 5.0 - 8.0 [facility] Urine sediment bacteria coun t by microscopy (number/high power field)Ordered By: Jose Cruz Bonilla on 01-20-2023 Bacteria LM.HPF (Urine sed) [#/Area] 0 /[HPF] None Seen [facility] Urine specific gravity measu rementOrdered By: Jose Cruz Bonilla on 01-20-2023 Specific gravity (U) [Rel density] 1.015 1.002-1.030 [facility] Urobilinogen Auto test strip Ql (U)Ordered By: Jose Cruz Bonilla on 01-20-2023 Urobilinogen Ql (U) Normal mg/dl Normal [facility] Absolute lymphocyte countOrd ered By: Susan Sotelo on 12-11-2022 Lymphocytes Auto (Unsp spec) [#/Vol] 3.38 10*3/uL 0.83-4.51 [facility] Basophil percentageOrdered B y: Susan Sotelo on 12-11-2022 Basophils/100 WBC (Bld) 1.5 % 0-1 [facility] Bilirubin [Mass/Vol] 0.40 mg/dL 0.20-1.00 [facility] Comment on above: For patients on eltr ombopag therapy, use of Dimension [place] TBIL is not recommended. Chloride [Moles/Vol] 106 mmol/L 98-107 [facility] Eosinophils/100 WBC (Bld) 0.3 % 0-3 [facility] Glucose [Mass/Vol] 87 mg/dL 74-106 [facility] Neutrophils (Bld) [#/Vol] 2.0 10*3/uL 2.0-7.7 [facility] Neutrophils/100 WBC (Bld) 32.6 % 34-64 [facility] Potassium [Moles/Vol] 3.8 mmol/L 3.5-5.1 [facility] Protein [Mass/Vol] 7.8 g/dL 6.4-8.2 [facility] Sodium [Moles/Vol] 140 mmol/L 136-145 [facility] WBC (Bld) [#/Vol] 6.0 10*3/uL 4.5-13.0 [facility] Blood erythrocytes count (nu mber/volume)Ordered By: Susan Sotelo on 12-11-2022 RBC (Bld) [#/Vol] 4.62 10*6/uL 4.1-4.8 [facility] Blood hemoglobin measurement (mass/volume)Ordered By: Susan Sotelo on 12-11-2022 Hemoglobin (Bld) [Mass/Vol] 13.5 g/dL 12.0-15.0 [facility] Blood lymphocytes/100 leukoc ytesOrdered By: Susan Sotelo on 12-11-2022 Lymphocytes/100 WBC (Bld) 56.1 % 25-45 [facility] Blood monocytes/100 leukocyt esOrdered By: Susan Sotelo on 12-11-2022 Monocytes/100 WBC (Bld) 9.0 % 3-6 [facility] Blood platelet adequacy dete ction by light microscopyOrdered By: Susan Sotelo on 12-11-2022 Platelets LM Ql (Bld) SLT DEC ADEQ [facility] Blood platelet mean volumeOr dered By: Susan Sotelo on 12-11-2022 Platelet mean volume (Bld) [Entitic vol] 8.5 fL 6.2-12.0 [facility] Determination of erythrocyte mean corpuscular volume (MCV)Ordered By: Susan Sotelo on 12-11-2022 MCV (RBC) [Entitic vol] 88.5 fL 78-96 [facility] Hematocrit Auto (Bld) [Volum e fraction]Ordered By: Susan Sotelo on 12-11-2022 Hematocrit (Bld) [Volume fraction] 40.9 % 37-46 [facility] Laboratory - Chemistry and C hemistry - challengeOrdered By: Susan Sotelo on 12-11-2022 ALP [Catalytic activity/Vol] 89 U/L 47-119 [facility] ALT [Catalytic activity/Vol] 113 U/L 13-56 [facility] CO2 [Moles/Vol] 28.0 mmol/L 21.0-32.0 [facility] Globulin (S) [Mass/Vol] 4.5 g/dL 2.2-4.2 [facility] Urea nitrogen/Creatinine [Mass ratio] 13.6 mg/mg 10-20 [facility] Laboratory - Hematology and Cell countsOrdered By: Susan Sotelo on 12-11-2022 Anisocytosis Ql (Bld) RARE [facility] Erythrocyte distribution width (RBC) [Entitic vol] 41.2 fL 35.1-43.9 [facility] Erythrocyte distribution width (RBC) [Ratio] 12.8 % 11.6-14.6 [facility] Immature granulocytes/100 WBC (Bld) 0.500 % 0.0-0.9 [facility] Comment on above: IG% - Immature Granu locytes (promyelocytes, myelocytes and metamyelocytes) > 1% indicates that a LEFT SHIFT is Present. MCH (RBC) [Entitic mass] 29.2 pg 25.0-35.0 [facility] Nucleated RBC/100 WBC (Bld) [Ratio] 0 % 0-5 [facility] MCHC Auto (RBC) [Mass/Vol]Or dered By: Susan Sotelo on 12-11-2022 MCHC (RBC) [Mass/Vol] 33.0 g/dL 32-36 [facility] No Panel InformationOrdered By: Susan Sotelo on 12-11-2022 Atypical Lymphocytes 2+ % [facility] Estimated Creatinine Clearance Calc 102.82 ml/min [facility] Estimated GFR (MDRD) er [facility] [place] Comment on above: Test not performedAf rican Brazilian GFR Calc Estimated GFR (MDRD) Non-Af [facility] Comment on above: Test not performedNo n- GFR Calc Platelets bldOrdered By: Ravi Sotelo on 12-11-2022 Platelets (Bld) [#/Vol] 127 10*3/uL 150-450 [facility] RBC morphologyOrdered By: Kasie Sotelo on 12-11-2022 RBC morphology finding Nom (Bld) NORM C+C NORMAL NORM C&C [facility] Serum heterophile antibody d etectionOrdered By: Susan Sotelo on 12-11-2022 Heterophile Ab Ql (S) Positive Negative [facility] Comment on above: RESULTS CALLED TO SA HIWOT TONG RN ER 12/11/221820 Brian Villafuerte.REPORT READ BACK BY SAME . Serum or plasma albumin med urement (mass/volume)Ordered By: Susan Sotelo on 12-11-2022 Albumin [Mass/Vol] 3.3 g/dL 3.2-5.0 [facility] Serum or plasma albumin/glob ulin mass ratioOrdered By: Susan Sotelo on 12-11-2022 Albumin/Globulin [Mass ratio] 0.7 {ratio} 0.9-2.4 [facility] Serum or plasma calcium med urement (mass/volume)Ordered By: Susan Sotelo on 12-11-2022 Calcium [Mass/Vol] 9.2 mg/dL 8.5-10.1 [facility] Serum or plasma creatinine m easurement (mass/volume)Ordered By: Susan Sotelo on 12-11-2022 Creatinine [Mass/Vol] 0.74 mg/dL 0.55-1.02 [facility] Comment on above: The validity of the calculated GFR & GFRAA in patients over 70 years has not been determined. Clinical correlation is essential. Serum or plasma urea nitroge n measurement (mass/volume)Ordered By: Susan Sotelo on 12-11-2022 Urea nitrogen [Mass/Vol] 10 mg/dL 7-18 [facility] Thin prep Papanicolaou smear with manual screeningOrdered By: Susan Sotelo on 12-11-2022 Thin prep Papanicolaou smear with manual screening 91 U/L 15-37 [facility] Thin prep Papanicolaou smear with manual screening 6 5-15 [facility] No Panel Informationon 09-02 Endomysial IgA Antibody Negative Negative [facility] Tissue Transglutaminase IgG Ab <2 U/mL 0-5 [facility] Comment on above: Negative 0 - 5 Weak Positive 6 - 9 Positive >9 Serum or plasma IgA measurem ent (mass/volume)on 2022 IgA [Mass/Vol] 61 mg/dL 87-352 [facility] Comment on above: Performed at: [facility] [address] [id number] Director: Sandeep Kruger PhD, Phone: [phone] Serum tissue transglutaminas e IgA antibody assay (units/volume)on 2022 tTG IgA Qn (S) <2 U/mL 0-3 [facility] Comment on above: Negative 0 - 3 Weak Positive 4 - 10 Positive >10 Tissue Transglutaminase (tTG) has been identified as the endomysial antigen. Studies have demonstr- ated that endomysial IgA antibodies have over 99% specificity for gluten sensitive enteropathy. Disaccharidase Activity Radha Almaguer 08-25-2022 Glucoamylase 27.0 nmol/min/mg Prot Normal >=8.0 [facility] Comment on above: Order Comment: Relea se to patient->Automatic [id number]&Tissue^\S\^Tissue&Tissue Performed By: #### D ISAT #### [facility] [address] [id number] Interpretation SEE BELOW Normal [facility] Comment on above: Order Comment: Relea se to patient->Automatic [id number]&Tissue^\S\^Tissue&Tissue Result Comment: *NEG ATIVE* In this sample, the activities of the five disaccharidases were normal indicating that this individual is not affected with a disaccharidase deficiency. ADDITIONAL INFORMATION Colorimetric Enzyme Assay This test was developed and its performance characteristics determined by [facility] in a manner consistent with CLIA requirements. This test has not been cleared or approved by the U.S. Food and Drug Administration. Performed By: #### D ISAT #### [place] [address] Lactase 29.2 nmol/min/mg Prot Normal >=14.0 [facility] Comment on above: Order Comment: Relea se to patient->Automatic [id number]&Tissue^\S\^Tissue&Tissue Performed By: #### D ISAT #### [place] [address] Maltase 187.5 nmol/min/mg Prot Normal >=70.0 [facility] Comment on above: Order Comment: Relea se to patient->Automatic 81360&Tissue^\S\^Tissue&Tissue Performed By: #### D ISAT #### [place] [address] Palatinase 15.5 nmol/min/mg Prot Normal >=6.0 [facility] Comment on above: Order Comment: Relea se to patient->Automatic 70356&Tissue^\S\^Tissue&Tissue Performed By: #### D ISAT #### [place] [address] Reviewed By SEE BELOW Normal [facility] Comment on above: Order Comment: Relea se to patient->Automatic [id number]&Tissue^\S\^Tissue&Tissue Result Comment: Delano Quintero M.D., Ph.D. Test Performed by: [place] [address] Application Integration Engineer: Antonio Anguiano M.D. Ph.D.; CLIA# [id number] Performed By: #### D ISAT #### [address] [id number] Sucrase 51.0 nmol/min/mg Prot Normal >=19.0 [facility] Comment on above: Order Comment: Relea se to patient->Automatic 27936&Tissue^\S\^Tissue&Tissue Performed By: #### D ISAT #### [address] [address] POCT urine HCGOrdered By: Joel Brunner on 08-23-2022 Clear Background *Present [facility] Control Line *Present [facility] HCG ( test) Ql (U) Negative Negative [facility] Interpretation and review of laboratory results Normal [facility] LOT # [id number] [facility]on Surgical Pathology Test SEE BELOW Normal A [facility] Comment on above: Result Comment: ALBERTINA L DIAGNOSIS: A. Distal esophagus, biopsy: No significant histopathologic changes. B. Stomach, biopsies: No significant histopathologic changes. C. Duodenum, biopsies: Increased intraepithelial lymphocytosis. Subtle focal villous broadening. See comment. D. Terminal ileum, biopsies: No significant histopathologic changes. E. Right colon, biopsies: No significant histopathologic changes. Rare melanosis coli. F. Transverse colon, biopsies: No significant histopathologic changes. G. Left colon, biopsy: No significant histopathologic changes. H. Rectosigmoid colon, biopsies: No significant histopathologic changes. SPECIMEN: A. ESOPHAGEAL BIOPSY- distal B. STOMACH, BIOPSY C. DUODENAL BIOPSY D. BOWEL, BIOPSY- terminal ileum E. BOWEL, BIOPSY- right colon F. BOWEL, BIOPSY- tranverse colon G. BOWEL, BIOPSY- left colon H. BOWEL, BIOPSY- rectosigmoid DATE OF SURGERY: 08/23/2022 CLINICAL INFORMATION: Generalized abdominal pain. Weight loss. GROSS DESCRIPTION: A. Received in formalin labeled with the patient's name and distal esophagus is a harris soft tissue fragment measuring 0.4 x 0.1 x 0.1 cm. It is totally submitted in one cassette. B. Received in formalin labeled with the patient's name and stomach are two harris soft tissue fragments aggregating to 0.3 x 0.1 x 0.1 cm. They are totally submitted in one cassette. C. Received in formalin labeled with the patient's name and duodenum are two harris soft tissue fragments aggregating to 0.6 x 0.2 x 0.1 cm. They are totally submitted in one cassette. D. Received in formalin labeled with the patient's name and terminal ileum are two harris soft tissue fragments aggregating to 0.4 x 0.2 x 0.1 cm. They are totally submitted in one cassette. E. Received in formalin labeled with the patient's name and right colon are two harris soft tissue fragments aggregating to 0.5 x 0.1 x 0.1 cm. They are totally submitted in one cassette. F. Received in formalin labeled with the patient's name and transverse colon are two harris soft tissue fragments aggregating to 0.4 x 0.1 x 0.1 cm. They are totally submitted in one cassette. G. Received in formalin labeled with the patient's name and left colon is a harris soft tissue fragment measuring 0.1 x 0.1 x 0.1 cm. It is totally submitted in one cassette. H. Received in formalin labeled with the patient's name and rectosigmoid are two harris soft tissue fragments aggregating to 0.3 x 0.1 x 0.1 cm. They are totally submitted in one cassette. MICROSCOPIC EXAMINATION: A. Sections demonstrate squamous epithelium with normal maturation and no evidence of inflammation, metaplasia, or atypia. B. Sections demonstrate gastric mucosa with normal glandular architecture. There is no significant lamina propria inflammatory cell population. There is no neutrophilic, eosinophilic, or granulomatous inflammation. C. Sections show duodenal mucosa with normal crypt architecture. There is a focal mild villous broadening. The lamina propria inflammatory cell population is essentially normal. There is a significant increase in intraepithelial lymphocytes seen. There is no neutrophilic, eosinophilic, or granulomatous inflammation. D. Sections show ileal mucosa with normal villous and crypt architecture. The lamina propria inflammatory cell population is normal. Normal mucosa-associated lymphoid tissue is present. There is no neutrophilic, eosinophilic, or granulomatous inflammation. E. Sections show colonic mucosa with normal crypt architecture and a normal lamina propria inflammatory cell population. There is no neutrophilic, eosinophilic, or granulomatous inflammation. Rare focal lamina propria macrophages consistent with melanosis coli. F. Sections show colonic mucosa with normal crypt architecture and a normal lamina propria inflammatory cell population. There is no neutrophilic, eosinophilic, or granulomatous inflammation. G. Sections show colonic mucosa with normal crypt architecture and a normal lamina propria inflammatory cell population. There is no neutrophilic, eosinophilic, or granulomatous inflammation. H. Sections show colonic mucosa with normal crypt architecture and a normal lamina propria inflammatory cell population. There is no neutrophilic, eosinophilic, or granulomatous inflammation. Rare lymphoid aggregate. Rare single cell showing melanosis coli. COMMENT: The specimen demonstrates intraepithelial lymphocytosis in the setting of essentially preserved architecture. The findings are non-specific and raise a differential diagnosis including small intestinal bacterial overgrowth, medication induced injury, peptic injury, celiac disease, sensitivity to non-gluten proteins, among others. Clinical correlation required. Case shown at intradepartmental conference on August 25, 2022. STAINS AND PROCEDURES: Stains performed have adequate controls. Testing using analyte spe (more content not included)... Performed By: #### S UR #### [place] [address] Endomysial IgA Abon 08-04-19 23 Endomysial IgA Ab Negative Normal Negative [facility] Comment on above: Order Comment: Relea se to patient->Automatic [id number]&Blood Result Comment: A ne gative serum IgA endomysial antibody is usually seen in normal individuals, however a diagnosis of celiac disease, dermatitis herpetiformis and other gluten sensitive disorders cannot be completely excluded, as this test may be negative in a subset of individuals with these disorders. If the clinical suspicion for one of these disorders is high, recommend further testing for gluten sensitivity as indicated by the Celiac Disease Comprehensive [place] ([place] Test Unit Code CDCOM). In addition serum IgA endomysial antibody may also be negative in gluten-sensitive patients (with celiac disease, dermatitis herpetiformis or other gluten-sensitive disorders), who adhere to a strict gluten-free diet. ADDITIONAL INFORMATION This test has been modified from the corporate development officer's instructions. Its performance characteristics were determined by [facility] in a manner consistent with CLIA requirements. This test has not been cleared or approved by the U.S. Food and Drug Administration. Test Performed by: [facility] - [address] [address] Application Integration Engineer: Antonio Anguiano M.D. Ph.D.; CLIA# [id number] Performed By: #### E NDOM #### [address] [address] Transglutaminase IgAon 08-03 Transglutaminase IgA <1.60 Normal 0.00-8.99 [facility] Comment on above: Order Comment: Relea se to patient->Automatic [id number]&Blood Result Comment: NEGATIVE Interpretation of Results: Negative: <9.0 AU/mL Equivocal: 9.0-16.0 AU/mL Positive: >16.0 AU/mL Method: The anti-tTG antibodies were determined using an GUERLINE-based commercially available kit (Eu-tTG [employer], [facility] [place]). Performed By: #### T RGLA #### [address] [address] ABDOMEN 1 VIEWon 07-30-2022 ABDOMEN 1 VIEW CLINICAL HISTORY: abdominal pain COMPARISON: 01/08/2013 TECHNIQUE: ABDOMEN 1 VIEW FINDINGS: The visualized lung bases are clear. There is a nonspecific bowel gas pattern. No bowel obstruction is seen. No free air is identified. There is a moderate amount of stool in the colon. The fecal load is mildly decreased from the last exam. No organomegaly or abnormal calcifications are seen. The bones are unremarkable. IMPRESSION: No acute abnormality is seen to explain the patient's symptoms. This report has been created using voice recognition software Signed by: Dr. 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 She has had constipation on and off throughout childhood and now getting worse. BM- 1 time daily to every other day, once in awhile will go a lot, but usually smaller amount and feels like she has to go and cannot get it out, pains in bottom can come on random sitting anywhere, will try to use bathroom and many times cannot go or get anything out, maybe spasm, no nighttime stooling Abdominal pains- can be lower and then pains at times shooting in lower back, pains can move all over belly, pains are daily, stabbing pains in stomach and cramping, nothing makes better except heating pad, pains worse in the morning, does not get better but comes and goes Vomiting- none, has nausea once in awhile when stomach pains are very bad, started menses today and nauseated with that Diet- appetite not great, limit intake of food because hurts belly, normally picks and grazes throughout the day, no great with big meals, has lost weight about 30-35 lbs over the course of about 2 years, not really picky She is accompanied by her mother and father. Abdominal Pain Symptoms include bloating, constipation, headaches, interference with activity, nausea and weight loss. The onset has been chronic. The pattern is constant, continuous, persistent and recurrent. The course is recurrent. Nishi symptoms are described as fluctuating, moderate and interfering with school. The symptoms are characterized as sharp stabbing, cramping and squeezing. The location of the pain is generalized. The pain radiates to the back. Her symptoms are aggravated by meals. Her symptoms are relieved by nothing. The patient is not experiencing burping, diarrhea, flatus, heartburn and vomiting. Patient complains of constipation. Patient denies diarrhea. She has 1 stools per day. Her stool is soft and small. There is no blood in her stool. Soiling noted: none. Patient receives nutrition orally. Nikki's current eating habits are having a decreased appetite. Her diet includes a well balanced diet. Previous interventions include none. Medications include H2 blockers and Miralax. Lab results from previous visit normal. (Done at outside hospital and look normal). Previously run imaging tests: US RUQ (liver/gallbladder), upper GI w/SBFT and x-ray KUB. Past Medical History Past Medical History: Diagnosis Date Attention-deficit hyperactivity disorder Past Surgical History Past Surgical History: Procedure Laterality Date NO PAST SURGICAL HISTORY Allergies No Known Allergies Medications Outpatient Encounter Medications as of 07/30/2022 Medication Sig Dispense Refill polyethylene glycol (MIRALAX) powder Take 17 g by mouth 2 times daily. 255 g 0 [DISCONTINUED] POLYETHYLENE GLYCOL by Does not apply route [DISCONTINUED] Methylphenidate HCl (RITALIN PO) Take by mouth. (Patient not taking: Reported on 07/30/2022) No facility-administered encounter medications on file as of 07/30/2022. Family Medical History Family History Problem Relation Age of Onset Thyroid Disease Mother Stomach Ulcer(s) Father Gastroesophageal reflux Father Irritable Bowel Syndrome Maternal Grandmother Colon Cancer Maternal Grandmother Cancer Maternal Grandmother Gallbladder Disease Paternal Grandmother Constipation Paternal Grandmother Colon Polyps Paternal Grandfather Anesth Problems Neg Hx Bleeding Problem Neg Hx Blood Disorders Neg Hx Celiac Disease Neg Hx Crohn's Disease Neg Hx Cystic Fibrosis Neg Hx Eosinophilic Esophagitis Neg Hx Kidney Disease Neg Hx Liver Disease Neg Hx Pancreatic Disease Neg Hx Ulcerative Colitis Neg Hx Social History Social History Socioeconomic History Marital status: Single Spouse name: None Number of children: None Years of education: None Highest education level: None Diet Current Diet? regular diet Patient drinks milk, eats cheese, ice cream? Yes Do dairy products cause problems? No Does patient have dietary restrictions? No Patient on nutritional supplements? No Patient on tube feeds? No Social History Who lives in the household? mom,dad Are there pets in the home? Yes Has patient traveled out of the country? No Water source for child? Bottled water Has the patient ever been hospitalized? No Alternative meds, herbals, OTC meds and vitamins documented in medication section? No Review of Systems Review of Systems Constitutional: Positive for weight loss and malaise/fatigue. HENT: Positive for ear infections (recently 2 ear infections) and sinus problems. Eyes: Negative. Respiratory: Negative. Cardiovascular: Negative. Endocrine: negative Gastrointestinal: Positive for constipation and abdominal pain. Genitourinary: Positive for 1 (irregular, (more content not included)... Normal [facility] XR Abdomen Viewson 3 IMPRESSION: No acute abnormality is seen to explain the patient's symptoms. This report has been created using voice recognition software [facility] CLINICAL HISTORY: abdominal pain COMPARISON: 01/08/2013 TECHNIQUE: ABDOMEN 1 VIEW FINDINGS: The visualized lung bases are clear. There is a nonspecific bowel gas pattern. No bowel obstruction is seen. No free air is identified. There is a moderate amount of stool in the colon. The fecal load is mildly decreased from the last exam. No organomegaly or abnormal calcifications are seen. The bones are unremarkable. [facility] Min Olson MD - 07/30/2022 CLINICAL HISTORY: abdominal pain COMPARISON: 01/08/2013 TECHNIQUE: ABDOMEN 1 VIEW FINDINGS: The visualized lung bases are clear. There is a nonspecific bowel gas pattern. No bowel obstruction is seen. No free air is identified. There is a moderate amount of stool in the colon. The fecal load is mildly decreased from the last exam. No organomegaly or abnormal calcifications are seen. The bones are unremarkable. IMPRESSION: No acute abnormality is seen to explain the patient's symptoms. This report has been created using voice recognition software [facility] Study observation (narrative) [facility] XR Abdomen ViewsOrdered By: Min Olson on 07-30-2022 [facility] Work Phone: Stool Helicobacter pylori an tigen detection by immunoassayOrdered By: Dr. Peralta on 06-11-2022 H. pylori Ag IA Ql (Stl) Negative Negative [facility] Comment on above: Performed at: [address] [id number] Director: Lamine Horton MD, Phone: [phone] Alternaria alternata IgE ser umOrdered By: Dr. Peralta on 06-08-2022 A. alternata IgE Qn (S) 2.63 kU/L Class III [facility] Beta hCG serum qualOrdered B y: Dr. Peralta on 06-08-2022 Beta HCG ( test) Ql Negative [facility] No Panel InformationOrdered By: Dr. Peralta on 06-08-2022 Cat Hair Allergen <0.10 kU/L Class 0 [facility] Common Ragweed (Short) Allergen <0.10 kU/L Class 0 [facility] Immunoglobulin E 73 IU/mL 9-472 [facility] Maple (Holt) Allergen IgE Ab <0.10 kU/L Class 0 [facility] Mouse Urine Allergen IgE Antibody <0.10 kU/L Class 0 [facility] Comment on above: Performed at: [address] [id number] Director: Lamine Horton MD, Phone: [phone] RAST Comment Comment . [facility] Comment on above: Levels of Specific I gE Class Description of Class ----- < 0.10 0 Negative 0.10 - 0.31 0/I Equivocal/Low 0.32 - 0.55 I Low 0.56 - 1.40 II Moderate 1.41 - 3.90 III High 3.91 - 19.00 IV Very High 19.01 - 100.00 V Very High >100.00 Very High [place] Allergen <0.10 kU/L Class 0 [facility] Rough pigweed specific IgE a ntibody assayOrdered By: Dr. Peralta on 06-08-2022 Rough Pigweed IgE Qn (S) <0.10 kU/L Class 0 [facility] Serum Brazilian sycamore IgE antibody assay (units/volume)Ordered By: Dr. Peralta on 06-08-2022 Brazilian Palmetto IgE Qn (S) 0.13 kU/L Class 0/I [facility] Serum Aspergillus fumigatus IgE antibody assay (units/volume)Ordered By: Dr. Peralta on 06-08-2022 A. fumigatus IgE Qn (S) <0.10 kU/L Class 0 [facility] Serum Bermuda grass IgE anti body assay (units/volume)Ordered By: Dr. Peralta on 06-08-2022 Bermuda grass IgE Qn (S) 0.22 kU/L Class 0/I [facility] Serum Cladosporium herbarum IgE antibody assay (units/volume)Ordered By: Dr. Peralta on 06-08-2022 C. herbarum IgE Qn (S) <0.10 kU/L Class 0 [facility] Serum Dermatophagoides farin ae specific IgE antibody assay (units/volume)Ordered By: Dr. Peralta on 06-08-2022 Brazilian house dust mite IgE Qn (S) <0.10 kU/L Class 0 [facility] Serum house dust mi te IgE antibody assay (units/volume)Ordered By: Dr. Peralta on 06-08-2022 house dust mite IgE Qn (S) <0.10 kU/L Class 0 [facility] Serum Penicillium notatum Ig E antibody assay (units/volume)Ordered By: Dr. Peralta on 06-08-2022 P. notatum IgE Qn (S) <0.10 kU/L Class 0 [facility] Serum Periplaneta americana IgE antibody assay (units/volume)Ordered By: Dr. Peralta on 06-08-2022 Brazilian Cockroach IgE Qn (S) <0.10 kU/L Class 0 [facility] Serum Sammarinese thistle specif ic IgE antibody assayOrdered By: Dr. Peralta on 06-08-2022 Saltwort IgE Qn (S) <0.10 kU/L Class 0 [facility] Serum birch specific IgE ant ibody assayOrdered By: Dr. Peralta on 06-08-2022 Silver Birch IgE Qn (S) <0.10 kU/L Class 0 [facility] Serum black walnut IgE antib thomas assay (units/volume)Ordered By: Dr. Peralta on 06-08-2022 Black [place] IgE Qn (S) <0.10 kU/L Class 0 [facility] Serum cottonwood IgE antibod y assay (units/volume)Ordered By: Dr. Peralta on 06-08-2022 [place] IgE Qn (S) <0.10 kU/L Class 0 [facility] Serum dog epithelium IgE ant ibody assay (units/volume)Ordered By: Dr. Peralta on 06-08-2022 Dog epithelium IgE Qn (S) <0.10 kU/L Class 0 [facility] Serum mountain cedar specifi c IgE antibody assayOrdered By: Dr. Peralta on 06-08-2022 Mountain Juniper IgE Qn (S) <0.10 kU/L Class 0 [facility] Serum pecan or hickory nut I gE antibody assay (units/volume)Ordered By: Dr. Peralta on 06-08-2022 Pecan or [place]k Nut IgE Qn (S) <0.10 kU/L Class 0 [facility] Serum sheep sorrel IgE antib thomas assay (units/volume)Ordered By: Dr. Peralta on 06-08-2022 Sheep [place] IgE Qn (S) 0.18 kU/L Class 0/I [facility] Serum kenn IgE antibody a ssay (units/volume)Ordered By: Dr. Peralta on 06-08-2022 Kenn IgE Qn (S) <0.10 kU/L Class 0 [facility] Serum white nina IgE antibody assay (units/volume)Ordered By: Dr. Peralta on 06-08-2022 White Nina IgE Qn (S) 0.10 kU/L Class 0/I [facility] Serum white elm IgE antibody assay (units/volume)Ordered By: Dr. Peralta on 06-08-2022 White Elm IgE Qn (S) <0.10 kU/L Class 0 [facility] Serum white mulberry IgE ant ibody assay (units/volume)Ordered By: Dr. Peralta on 06-08-2022 White mulberry IgE Qn (S) 0.14 kU/L Class 0/I [facility] Absolute lymphocyte countOrd ered By: Dr. Peralta on 05-26-2022 Lymphocytes Auto (Unsp spec) [#/Vol] 1.41 10*3/uL 0.83-4.51 [facility] Basophil percentageOrdered B y: Dr. Peralta on 05-26-2022 Basophils/100 WBC (Bld) 0.3 % 0-1 [facility] Bilirubin [Mass/Vol] 0.50 mg/dL 0.20-1.00 [facility] Comment on above: For patients on eltr ombopag therapy, use of Dimension [place] TBIL is not recommended. Chloride [Moles/Vol] 104 mmol/L 98-107 [facility] Eosinophils/100 WBC (Bld) 0.1 % 0-3 [facility] Glucose [Mass/Vol] 76 mg/dL 74-106 [facility] Neutrophils (Bld) [#/Vol] 6.9 10*3/uL 2.0-7.7 [facility] Neutrophils/100 WBC (Bld) 76.8 % 34-64 [facility] Potassium [Moles/Vol] 4.1 mmol/L 3.5-5.1 [facility] Protein [Mass/Vol] 7.1 g/dL 6.4-8.2 [facility] Sodium [Moles/Vol] 138 mmol/L 136-145 [facility] WBC (Bld) [#/Vol] 9.0 10*3/uL 4.5-13.0 [facility] Beta hCG serum qualOrdered B y: Dr. Peralta on 05-26-2022 Beta HCG ( test) Ql Negative [facility] Blood erythrocytes count (nu mber/volume)Ordered By: Dr. Peralta on 05-26-2022 RBC (Bld) [#/Vol] 4.67 10*6/uL 4.1-4.8 [facility] Blood hemoglobin measurement (mass/volume)Ordered By: Dr. Peralta on 05-26-2022 Hemoglobin (Bld) [Mass/Vol] 13.9 g/dL 12.0-15.0 [facility] Blood lymphocytes/100 leukoc ytesOrdered By: Dr. Peralta on 05-26-2022 Lymphocytes/100 WBC (Bld) 15.6 % 25-45 [facility] Blood monocytes/100 leukocyt esOrdered By: Dr. Peralta on 05-26-2022 Monocytes/100 WBC (Bld) 6.9 % 3-6 [facility] Blood platelet mean volumeOr dered By: Dr. Peralta on 05-26-2022 Platelet mean volume (Bld) [Entitic vol] 9.6 fL 6.2-12.0 [facility] Determination of erythrocyte mean corpuscular volume (MCV)Ordered By: Dr. Peralta on 05-26-2022 MCV (RBC) [Entitic vol] 91.2 fL 78-96 [facility] Hematocrit Auto (Bld) [Volum e fraction]Ordered By: Dr. Peralta on 05-26-2022 Hematocrit (Bld) [Volume fraction] 42.6 % 37-46 [facility] Laboratory - Chemistry and C hemistry - challengeOrdered By: Dr. Peralta on 05-26-2022 ALP [Catalytic activity/Vol] 78 U/L 47-119 [facility] ALT [Catalytic activity/Vol] 19 U/L 13-56 [facility] CO2 [Moles/Vol] 26.0 mmol/L 21.0-32.0 [facility] Globulin (S) [Mass/Vol] 3.2 g/dL 2.2-4.2 [facility] Urea nitrogen/Creatinine [Mass ratio] 26.4 mg/mg 10-20 [facility] Laboratory - Hematology and Cell countsOrdered By: Dr. Peralta on 05-26-2022 Erythrocyte distribution width (RBC) [Entitic vol] 40.4 fL 35.1-43.9 [facility] Erythrocyte distribution width (RBC) [Ratio] 12.3 % 11.6-14.6 [facility] Immature granulocytes/100 WBC (Bld) 0.300 % 0.0-0.9 [facility] Comment on above: IG% - Immature Granu locytes (promyelocytes, myelocytes and metamyelocytes) > 1% indicates that a LEFT SHIFT is Present. MCH (RBC) [Entitic mass] 29.8 pg 25.0-35.0 [facility] Nucleated RBC/100 WBC (Bld) [Ratio] 0 % 0-5 [facility] MCHC Auto (RBC) [Mass/Vol]Or dered By: Dr. Peralta on 05-26-2022 MCHC (RBC) [Mass/Vol] 32.6 g/dL 32-36 [facility] No Panel InformationOrdered By: Dr. Peralta on 05-26-2022 Anti-Gliadin IgA Antibody 2 units 0-19 [facility] Comment on above: Negative 0 - 19 Weak Positive 20 - 30 Moderate to Strong Positive >30 Anti-Gliadin IgG Antibody 3 units 0-19 [facility] Comment on above: Negative 0 - 19 Weak Positive 20 - 30 Moderate to Strong Positive >30 Endomysial IgA Antibody Negative Negative [facility] Estimated GFR (MDRD) er [facility] Comment on above: Test not performedAf rican Brazilian GFR Calc Estimated GFR (MDRD) Non-Af [facility] Comment on above: Test not performedNo n- GFR Calc Thyroid Stimulating Hormone (TSH) 0.51 uIU/mL 0.358-3.74 [facility] Tissue Transglutaminase IgG Ab <2 U/mL 0-5 [facility] Comment on above: Negative 0 - 5 Weak Positive 6 - 9 Positive >9 Toxoplasma Comment Comment . [facility] Comment on above: It is presumed the p atient has not been infected with andis not undergoing an acute infection with Toxoplasma. Ifsymptoms persist, submit a new specimen after three weeks.Performed at: [address] [id number] Director: Sandeep Kruger PhD, Phone: [phone] Platelets bldOrdered By: Dr. Peralta on 05-26-2022 Platelets (Bld) [#/Vol] 266 10*3/uL 150-450 [facility] Serum IgA measurement (units /volume)Ordered By: Dr. Peralta on 05-26-2022 IgA Qn (S) 70 mg/dL 87-352 [facility] Serum Toxoplasma gondii IgG antibody assay (units/volume)Ordered By: Dr. Peralta on 05-26-2022 T. gondii IgG Qn (S) < 3.0 IU/mL 0.0-7.1 [facility] Comment on above: Negative <7.2 Equivo migel 7.2 - 8.7 Positive >8.7Performed at: [address] [id number] Director: Sandeep Kruger PhD, Phone: [phone] Serum Toxoplasma gondii IgM antibody assay by immunoassay (units/volume)Ordered By: Dr. Peralta on 05-26-2022 T. gondii IgM IA Qn (S) < 3.0 AU/mL 0.0-7.9 [facility] Comment on above: Negative <8.0 Equivo migel 8.0 - 9.9 Positive >9.9 Serum or plasma albumin med urement (mass/volume)Ordered By: Dr. Peralta on 05-26-2022 Albumin [Mass/Vol] 3.9 g/dL 3.2-5.0 [facility] Serum or plasma albumin/glob ulin mass ratioOrdered By: Dr. Peralta on 05-26-2022 Albumin/Globulin [Mass ratio] 1.2 {ratio} 0.9-2.4 [facility] Serum or plasma calcium med urement (mass/volume)Ordered By: Dr. Peralta on 05-26-2022 Calcium [Mass/Vol] 9.4 mg/dL 8.5-10.1 [facility] Serum or plasma creatinine m easurement (mass/volume)Ordered By: Dr. Peralta on 05-26-2022 Creatinine [Mass/Vol] 0.60 mg/dL 0.55-1.02 [facility] Comment on above: The validity of the calculated GFR & GFRAA in patients over 70 years has not been determined. Clinical correlation is essential. Serum or plasma urea nitroge n measurement (mass/volume)Ordered By: Dr. Peralta on 05-26-2022 Urea nitrogen [Mass/Vol] 16 mg/dL 7-18 [facility] Serum tissue transglutaminas e IgA antibody assay (units/volume)Ordered By: Dr. Peralta on 05-26-2022 tTG IgA Qn (S) <2 U/mL 0-3 [facility] Comment on above: Negative 0 - 3 Weak Positive 4 - 10 Positive >10 Tissue Transglutaminase (tTG) has been identified as the endomysial antigen. Studies have demonstr- ated that endomysial IgA antibodies have over 99% specificity for gluten sensitive enteropathy. Thin prep Papanicolaou smear with manual screeningOrdered By: Dr. Peralta on 05-26-2022 Thin prep Papanicolaou smear with manual screening 11 U/L 15-37 [facility] Thin prep Papanicolaou smear with manual screening 8 5-15 [facility] Absolute lymphocyte counton 10-29-2021 Lymphocytes Auto (Unsp spec) [#/Vol] 1.36 10*3/uL 0.83-4.51 [facility] Work Phone: Basophil percentageon 2021 Basophils/100 WBC (Bld) 0.1 % 0-1 [facility] Work Phone: Bilirubin [Mass/Vol] 0.50 mg/dL 0.20-1.00 [facility] Work Phone: Comment on above: For patients on eltr ombopag therapy, use of Dimension [place] TBIL is not recommended. Chloride [Moles/Vol] 105 mmol/L 98-107 [facility] Work Phone: Eosinophils/100 WBC (Bld) 0.4 % 0-3 [facility] Work Phone: Glucose [Mass/Vol] 79 mg/dL 74-106 [facility] Work Phone: Neutrophils (Bld) [#/Vol] 4.7 10*3/uL 2.0-7.7 [facility] Work Phone: Neutrophils/100 WBC (Bld) 70.5 % 34-64 [facility] Work Phone: Potassium [Moles/Vol] 4.0 mmol/L 3.5-5.1 [facility] Work Phone: [phone] Comment on above: Slight Hemolysis, Re sult may be falsely increased. Protein [Mass/Vol] 8.0 g/dL 6.4-8.2 [facility] Work Phone: Sodium [Moles/Vol] 137 mmol/L 136-145 [facility] Work Phone: WBC (Bld) [#/Vol] 6.7 10*3/uL 4.5-13.0 [facility] Work Phone: Blood erythrocytes count (nu mber/volume)on 10-29-2021 RBC (Bld) [#/Vol] 4.93 10*6/uL 4.1-4.8 [facility] Work Phone: Blood hemoglobin measurement (mass/volume)on 10-29-2021 Hemoglobin (Bld) [Mass/Vol] 14.7 g/dL 12.0-15.0 [facility] Work Phone: Blood lymphocytes/100 leukoc yteson 10-29-2021 Lymphocytes/100 WBC (Bld) 20.2 % 25-45 [facility] Work Phone: Blood monocytes/100 leukocyt eson 10-29-2021 Monocytes/100 WBC (Bld) 8.5 % 3-6 [facility] Work Phone: Blood platelet mean volumeon 10-29-2021 Platelet mean volume (Bld) [Entitic vol] 9.5 fL 6.2-12.0 [facility] Work Phone: Determination of erythrocyte mean corpuscular volume (MCV)on 10-29-2021 MCV (RBC) [Entitic vol] 87.0 fL 78-96 [facility] Work Phone: [phone] Erythrocyte sedimentation ra ritika 10-29-2021 ESR (Bld) [Velocity] 7 mm/h 0-13 [facility] Work Phone: [phone] Hematocrit Auto (Bld) [Volum e fraction]on 10-29-2021 Hematocrit (Bld) [Volume fraction] 42.9 % 37-46 [facility] Work Phone: Iron measurement (mass/mass) on 10-29-2021 Iron (Unsp spec) [Mass/Mass] 74 ug/dL 50-170 [facility] Work Phone: Comment on above: Slight Hemolysis, Re sult may be falsely increased. Laboratory - Chemistry and C hemistry - challengeon 10-29-2021 ALP [Catalytic activity/Vol] 87 U/L 47-119 [facility] Work Phone: [phone] ALT [Catalytic activity/Vol] 18 U/L 13-56 [facility] Work Phone: CO2 [Moles/Vol] 24.0 mmol/L 21.0-32.0 [facility] Work Phone: Cobalamin (Vitamin B12) [Mass/Vol] 531 pg/mL 211-911 [facility] Work Phone: Globulin (S) [Mass/Vol] 3.6 g/dL 2.2-4.2 [facility] Work Phone: Urea nitrogen/Creatinine [Mass ratio] 24.2 mg/mg 10-20 [facility] Work Phone: Laboratory - Hematology and Cell countson 10-29-2021 Erythrocyte distribution width (RBC) [Entitic vol] 39.4 fL 35.1-43.9 [facility] Work Phone: Erythrocyte distribution width (RBC) [Ratio] 12.2 % 11.6-14.6 [facility] Work Phone: Immature granulocytes/100 WBC (Bld) 0.300 % 0.0-0.9 [facility] Work Phone: Comment on above: IG% - Immature Granu locytes (promyelocytes, myelocytes and metamyelocytes) > 1% indicates that a LEFT SHIFT is Present. MCH (RBC) [Entitic mass] 29.8 pg 25.0-35.0 [facility] Work Phone: Nucleated RBC/100 WBC (Bld) [Ratio] 0 % 0-5 [facility] Work Phone: MCHC Auto (RBC) [Mass/Vol]on 10-29-2021 MCHC (RBC) [Mass/Vol] 34.3 g/dL 32-36 [facility] Work Phone: No Panel Informationon 10-29 Estimated GFR (MDRD) [facility] Work Phone: Comment on above: Test not performedAf rican Brazilian GFR Calc Estimated GFR (MDRD) Non-Af [facility] Work Phone: Comment on above: Test not performedNo n- GFR Calc Thyroid Stimulating Hormone (TSH) 1.14 uIU/mL 0.358-3.74 [facility] Work Phone: Vitamin D 25-Hydroxy 28.6 ng/mL [facility] Work Phone: Comment on above: Vitamin D 25(OH) Sta tus Range Deficiency <20 ng/mL (50nmol/L) Insufficiency 20 - 30 ng/mL (50 - 75 nmol/L) Sufficiency 30 - 100 ng/mL (75 - 250 nmol/L) Toxicity >100 ng/mL (>250 nmol/L) Platelets bldon 10-29-2021 Platelets (Bld) [#/Vol] 199 10*3/uL 150-450 [facility] Work Phone: Serum or plasma albumin med urement (mass/volume)on 10-29-2021 Albumin [Mass/Vol] 4.4 g/dL 3.2-5.0 [facility] Work Phone: Serum or plasma albumin/glob ulin mass ratioon 10-29-2021 Albumin/Globulin [Mass ratio] 1.2 {ratio} 0.9-2.4 [facility] Work Phone: Serum or plasma calcium med urement (mass/volume)on 10-29-2021 Calcium [Mass/Vol] 9.7 mg/dL 8.5-10.1 [facility] Work Phone: Serum or plasma creatinine m easurement (mass/volume)on 10-29-2021 Creatinine [Mass/Vol] 0.70 mg/dL 0.55-1.02 [facility] Work Phone: Comment on above: The validity of the calculated GFR & GFRAA in patients over 70 years has not been determined. Clinical correlation is essential. Serum or plasma ferritin akash surement (mass/volume)on 10-29-2021 Ferritin [Mass/Vol] 32 ng/mL 8-252 [facility] Work Phone: Serum or plasma urea nitroge n measurement (mass/volume)on 10-29-2021 Urea nitrogen [Mass/Vol] 17 mg/dL 7-18 [facility] Work Phone: Thin prep Papanicolaou smear with manual screeningon 10-29-2021 Thin prep Papanicolaou smear with manual screening 16 U/L 15-37 [facility] Work Phone: Comment on above: Slight Hemolysis, Re sult may be falsely increased. Thin prep Papanicolaou smear with manual screening 8 5-15 [facility] Work Phone: Vital Signs Date Time Vital Sign Value Performing Clinician Bambi julien 01-03-2025 14:01-0400 Body height 162.56 cm Ana Leija MD Work Phone: [facility] 01-03-2025 14:01-0400 Body mass index (BMI) [Percentile] Per age and sex 88.8 % Ana Leija MD Work Phone: [facility] 01-03-2025 14:01-0400 Body mass index (BMI) [Ratio] 27.4 kg/m2 Ana Leija MD Work Phone: [facility] 01-03-2025 14:01-0400 Body temperature 17 [degF] Ana Leija MD Work Phone: [facility] 01-03-2025 14:01-0400 Body weight 72.57 kg Ana Leija MD Work Phone: [facility] 01-03-2025 14:01-0400 Diastolic blood pressure 68 mm[Hg] Ana Leija MD Work Phone: [facility] 01-03-2025 14:01-0400 Heart rate 62 /min Ana Leija MD Work Phone: [facility] 01-03-2025 14:01-0400 Respiratory rate 18 /min Ana Leija MD Work Phone: [facility] 01-03-2025 14:01-0400 SaO2% (BldA) [Mass fraction] 100 % Ana Leija MD Work Phone: [facility] 01-03-2025 14:01-0400 Systolic blood pressure 103 mm[Hg] Ana Leija MD Work Phone: [facility] 12-20-2024 10:26-0400 Body height 162.56 cm Ana Leija MD Work Phone: [facility] 12-20-2024 10:26-0400 Body mass index (BMI) [Percentile] Per age and sex 89.3 % Ana Leija MD Work Phone: [facility] 12-20-2024 10:26-0400 Body mass index (BMI) [Ratio] 27.6 kg/m2 Ana Leija MD Work Phone: [facility] 12-20-2024 10:26-0400 Body weight 73.02 kg Ana Leija MD Work Phone: [facility] 12-20-2024 10:26-0400 Diastolic blood pressure 68 mm[Hg] Ana Leija MD Work Phone: [facility] 12-20-2024 10:26-0400 Heart rate 67 /min Ana Leija MD Work Phone: [facility] 12-20-2024 10:26-0400 Respiratory rate 17 /min Ana Leija MD Work Phone: [facility] 12-20-2024 10:26-0400 SaO2% (BldA) [Mass fraction] 99 % Ana Leija MD Work Phone: [facility] 12-20-2024 10:26-0400 Systolic blood pressure 103 mm[Hg] Ana Leija MD Work Phone: [facility] 11-28-2024 09:43-0400 Body height 162.56 cm Ana Leija MD Work Phone: [facility] 11-28-2024 09:43-0400 Body mass index (BMI) [Percentile] Per age and sex 88.6 % Ana Leija MD Work Phone: [facility] 11-28-2024 09:43-0400 Body mass index (BMI) [Ratio] 27.3 kg/m2 Ana Leija MD Work Phone: [facility] 11-28-2024 09:43-0400 Body temperature 97.6 [degF] Ana Leija MD Work Phone: [facility] 11-28-2024 09:43-0400 Body weight 72.12 kg Ana Leija MD Work Phone: [facility] 11-28-2024 09:43-0400 Diastolic blood pressure 64 mm[Hg] Ana Leija MD Work Phone: [facility] 11-28-2024 09:43-0400 Heart rate 65 /min Ana Leija MD Work Phone: [facility] 11-28-2024 09:43-0400 Respiratory rate 14 /min Ana Leija MD Work Phone: [facility] 11-28-2024 09:43-0400 SaO2% (BldA) [Mass fraction] 97 % Ana Leija MD Work Phone: [facility] 11-28-2024 09:43-0400 Systolic blood pressure 95 mm[Hg] Ana Leija MD Work Phone: [facility] 11-06-2024 11:05-0400 Body height 162.56 cm Ana Leija MD Work Phone: [facility] 11-06-2024 11:05-0400 Body mass index (BMI) [Percentile] Per age and sex 86.6 % Ana Leija MD Work Phone: [facility] 11-06-2024 11:05-0400 Body mass index (BMI) [Ratio] 26.6 kg/m2 Ana Leija MD Work Phone: [facility] 11-06-2024 11:05-0400 Body weight 70.53 kg Ana Leija MD Work Phone: [facility] 11-06-2024 11:05-0400 Diastolic blood pressure 77 mm[Hg] Ana Leija MD Work Phone: [facility] 11-06-2024 11:05-0400 Heart rate 73 /min Ana Leija MD Work Phone: [facility] 11-06-2024 11:05-0400 Respiratory rate 18 /min Ana Leija MD Work Phone: [facility] 11-06-2024 11:05-0400 SaO2% (BldA) [Mass fraction] 98 % Ana Leija MD Work Phone: [facility] 11-06-2024 11:05-0400 Systolic blood pressure 116 mm[Hg] Ana Leija MD Work Phone: [facility] 09-25-2024 10:48-0400 Body weight 69.4 kg Elsa Newsome APRN.CNM Work Phone: [facility] 09-25-2024 10:48-0400 Diastolic blood pressure 64 mm[Hg] Elas Newsome APRN.CNM Work Phone: [facility] 09-25-2024 10:48-0400 Systolic blood pressure 106 mm[Hg] Elsa Newsome APRN.CNM Work Phone: [facility] 07-31-2024 11:03-0400 Body weight 77.11 kg Elsa Newsome APRN.CNM Work Phone: [facility] 07-31-2024 11:03-0400 Diastolic blood pressure 68 mm[Hg] Elsa Newsome APRN.CNM Work Phone: [facility] 07-31-2024 11:03-0400 Systolic blood pressure 110 mm[Hg] Elsa Newsome APRN.CNM Work Phone: [facility] 07-19-2024 08:33-0500 Body height 160 cm Elsa Newsome APRN.CNM Work Phone: [facility] 07-19-2024 08:33-0500 Body mass index (BMI) [Percentile] Per age and sex 94.91 % Elsa Newsome APRN.CNM Work Phone: [facility] 07-19-2024 08:33-0500 Body mass index (BMI) [Ratio] 30.82 kg/m2 Elsa Newsome APRN.CNM Work Phone: [facility] 07-19-2024 08:33-0500 Body weight 78.93 kg Elsa Newsome APRN.CNM Work Phone: [facility] 07-19-2024 08:33-0500 Diastolic blood pressure 66 mm[Hg] Elsa Newsoem APRN.CNM Work Phone: [facility] 07-19-2024 08:33-0500 Systolic blood pressure 108 mm[Hg] Elsa Newsome APRN.CNM Work Phone: [facility] 01-20-2023 18:46-0400 Diastolic blood pressure 76 mm[Hg] [facility] 01-20-2023 18:46-0400 Heart rate 71 /min [facility] 01-20-2023 18:46-0400 Respiratory rate 15 /min [facility] 01-20-2023 18:46-0400 SaO2% (BldA) [Mass fraction] 98 % [facility] 01-20-2023 18:46-0400 Systolic blood pressure 125 mm[Hg] [facility] 01-20-2023 16:15-0400 Body height 160.02 cm [facility] 01-20-2023 16:15-0400 Body mass index (BMI) [Percentile] Per age and sex 76.1 % [facility] 01-20-2023 16:15-0400 Body mass index (BMI) [Ratio] 23.7 kg/m2 [facility] 01-20-2023 16:15-0400 Body temperature 96.7 [degF] [facility] 01-20-2023 16:15-0400 Body weight 60.69 kg [facility] 12-11-2022 16:52-0400 Body height 160.02 cm [facility] 12-11-2022 16:52-0400 Body mass index (BMI) [Percentile] Per age and sex 72 % [facility] 12-11-2022 16:52-0400 Body mass index (BMI) [Ratio] 23.1 kg/m2 [facility] 12-11-2022 16:52-0400 Body temperature 98.1 [degF] [facility] 12-11-2022 16:52-0400 Body weight 59.23 kg [facility] 12-11-2022 16:52-0400 Diastolic blood pressure 59 mm[Hg] [facility] 12-11-2022 16:52-0400 Heart rate 95 /min [facility] 12-11-2022 16:52-0400 Respiratory rate 18 /min [facility] 12-11-2022 16:52-0400 SaO2% (BldA) [Mass fraction] 100 % [facility] 12-11-2022 16:52-0400 Systolic blood pressure 107 mm[Hg] [facility] 11-08-2022 11:43-0400 Body weight 59.42 kg Leatha Jade CAD DESIGNER.HIGHWAY WORKER Work Phone: [facility] 11-08-2022 11:43-0400 Diastolic blood pressure 56 mm[Hg] Leatha Pittsford CAD DESIGNER.HIGHWAY WORKER Work Phone: [facility] 11-08-2022 11:43-0400 Systolic blood pressure 98 mm[Hg] Leatha Pittsford CAD DESIGNER.HIGHWAY WORKER Work Phone: [facility] 08-23-2022 10:13-0400 Body temperature 97.7 [degF] Irene Mooney MD Work Phone: [facility] 08-23-2022 10:13-0400 Diastolic blood pressure 73 mm[Hg] Irene Mooney MD Work Phone: [facility] 08-23-2022 10:13-0400 Heart rate 56 /min Irene Mooney MD Work Phone: [facility] 08-23-2022 10:13-0400 Respiratory rate 17 /min Irene Mooney MD Work Phone: [facility] 08-23-2022 10:13-0400 SaO2% (BldA) [Mass fraction] 100 % Irene Mooney MD Work Phone: [facility] 08-23-2022 10:13-0400 Systolic blood pressure 108 mm[Hg] Irene Mooney MD Work Phone: [facility] 08-23-2022 08:05-0400 Body height 161 cm Irene Mooney MD Work Phone: [facility] Comment on above: obtained in [facility] 08/19/22 08-23-2022 08:05-0400 Body mass index (BMI) [Percentile] Per age and sex 70.26 % Irene Mooney MD Work Phone: [facility] 08-23-2022 08:05-0400 Body mass index (BMI) [Ratio] 22.76 kg/m2 Irene Mooney MD Work Phone: [facility] 08-23-2022 08:05-0400 Body weight 59 kg Irene Mooney MD Work Phone: [facility] Comment on above: obtained in [facility] 08/19/22 Encounters Encounter Date Encounter Type Care Provider Facility Start: 02-14-2025 ambulatory Phoenix Amaro Facilit y:[facility] Start: 02-12-2025 End: 02-12-2025 ambulatory ELSA NEWSOME Facility:[facility] Start: 02-12-2025 Encounter for other preprocedural examination [facility] Start: 02-07-2025 [facility] Facil ity:[facility] Start: 01-31-2025 End: 01-31-2025 Patient encounter procedure Us Tech 1 [facility] OB/Gynecology Start: 01-31-2025 End: 01-31-2025 ambulatory 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 [facility] [employer] Remote Work Phone: OB/Gynecology Start: 01-15-2025 ambulatory Darcy Mcgrath ty:[facility] Start: 01-03-2025 End: 01-03-[address] Lor Bell MD -[facility] Work Phone: Start: 01-03-2025 End: 01-03-2025 ambulatory Ana Leija MD Work Phone: -[facility] Start: 12-20-2024 End: 12-20-[address] Lor Bell MD -[facility] Work Phone: Start: 12-20-2024 End: 12-20-2024 ambulatory Ana Leija MD Work Phone: -[facility] Start: 12-12-2024 End: 12-12-2024 ambulatory Ana Leija MD Work Phone: -[facility] Start: 12-12-2024 End: 12-12-2024 Patient encounter procedure Darcy BURRELL -Nuclear Medicine [facility] Work Phone: Start: 12-12-2024 End: 12-12-2024 ambulatory Chalon Liss Facility:[facility] Start: 11-28-2024 End: 11-28-2024 ambulatory Ana Leija MD Work Phone: -[facility] Start: 11-28-2024 End: 11-28-2024 Patient encounter procedure Darcy BURRELL -[facility] Work Phone: Start: 11-28-2024 End: 11-28-2024 Patient encounter procedure Darcy BURRELL -[facility] Work Phone: Start: 11-28-2024 End: 11-28-2024 ambulatory Ana Leija MD Work Phone: -[facility] Start: 11-28-2024 End: 11-28-2024 ambulatory Chalon Liss Facility:[facility] Start: 11-06-2024 End: 11-06-2024 ambulatory Ana Leija MD Work Phone: [facility] Work Phone: Start: 11-06-2024 End: 11-06-2024 Patient encounter procedure Darcy Fox RELAY MECHANIC-C -Laboratory Work Phone: Start: 11-06-2024 End: 11-06-2024 Patient encounter procedure Darcy Fox NP-C -[facility] Work Phone: Start: 11-06-2024 End: 11-06-2024 ambulatory Ana Leija MD Work Phone: [facility] Work Phone: Start: 11-06-2024 End: 11-06-2024 ambulatory Ana Leija Facility:[facility] Start: 10-04-2024 End: 10-04-2024 Patient encounter procedure Aaron Lomas RELAY MECHANIC-C -Ultrasound [facility] Work Phone: Start: 10-04-2024 End: 10-04-2024 ambulatory Aaron Lomas RELAY MECHANIC Facility:[facility] Start: 09-28-2024 End: 09-28-2024 ambulatory Ana Leija MD Work Phone: [facility] Work Phone: Start: 09-28-2024 End: 09-28-2024 Patient encounter procedure Aaron Lomas RELAY MECHANIC-C -Laboratory, [facility] Start: 09-28-2024 End: 09-28-2024 ambulatory Aaron Lomas RELAY MECHANIC Facility:[facility] Start: 09-25-2024 End: 09-25-2024 Patient encounter procedure Elsa Newsome APRN.CNM Work Phone: OB/Gynecology Comment on above: PCOS (polycystic ova adrian syndrome) (Primary Dx); Vaginal discharge; Elevated testosterone level; Nausea; Dizziness and giddiness Start: 09-25-2024 End: 09-25-2024 ambulatory ELSA NEWSOME Facility:[facility] Start: 08-21-2024 End: 08-21-2024 Telephone encounter Elsa Newsome APRN.CNM Work Phone: OB/Gynecology Comment on above: Patient Question Start: 07-31-2024 End: 08-01-2024 Telephone encounter Elsa Newsome APRN.CNM Work Phone: OB/Gynecology Comment on above: Patient Question (CP T and DX codes ) Start: 07-31-2024 End: 07-31-2024 ambulatory [facility] Facility:[facility] Start: 07-31-2024 End: 07-31-2024 Patient encounter procedure Elsa Newsome APRN.CNGuicho Work Phone: OB/Gynecology Comment on above: PCOS (polycystic ova adrian syndrome) (Primary Dx); Class 1 obesity without serious comorbidity with body mass index (BMI) of 30.0 to 30.9 in adult, unspecified obesity type; Ovarian cyst, right; Adnexal cyst; Secondary oligomenorrhea; Elevated testosterone level; Vaginal odor Start: 07-27-2024 End: 07-27-2024 Telephone encounter Elsa Newsome APRN.CNM Work Phone: OB/Gynecology Comment on above: Results Start: 07-26-2024 End: 07-26-2024 ambulatory 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 [facility] [employer] Remote Work Phone: OB/Gynecology Start: 07-26-2024 End: 07-26-2024 Patient encounter procedure Us Tech 1 [facility] OB/Gynecology Start: 07-20-2024 End: 09-19-2024 Follow-up encounter Abena Peterson APRN.CNP Work Phone: OB/Gynecology Start: 07-19-2024 End: 07-19-2024 [facility] Facility:[facility] Start: 07-19-2024 End: 07-19-2024 Patient encounter procedure Elsa Newsome APRN.CNGuicho Work Phone: OB/Gynecology Comment on above: Encounter for gyneco logical examination (general) (routine) with abnormal findings (Primary Dx); Screening for STDs (sexually transmitted diseases); Vaginal odor; Secondary oligomenorrhea Start: 07-19-2024 End: 07-19-2024 Patient encounter status Elsa Newsome APRN.CNM Work Phone: [facility] Start: 03-23-2023 End: 03-23-2023 ambulatory [facility] Work Phone: Start: 03-23-2023 End: 03-23-2023 Patient encounter procedure [facility]-Radiology, [place] Work Phone: Start: 01-20-2023 End: 01-20-2023 Emergency department patient visit [facility]-Emergency Department Work Phone: Start: 12-13-2022 End: 12-13-2022 ambulatory [facility] Work Phone: Start: 12-13-2022 End: 12-13-2022 Patient encounter procedure [facility]-Cat Scan, [facility] Work Phone: Start: 12-11-2022 End: 12-11-2022 Emergency department patient visit [facility]-Emergency Department Work Phone: Start: 11-09-2022 Telephone encounter Leatha tapia CAD DESIGNER.HIGHWAY WORKER Work Phone: OB/Gynecology Comment on above: Results Start: 11-08-2022 End: 11-08-2022 Patient encounter procedure Leatha Hansen CAD DESIGNER.HIGHWAY WORKER Work Phone: OB/Gynecology Comment on above: Vaginal odor (Primar y Dx); Encounter for other contraceptive management Start: 2022 End: 2022 Patient encounter procedure [facility]-Laboratory Work Phone: Start: 08-23-2022 End: 08-23-2022 ambulatory IRENE MOONEY [facility] Start: 08-23-2022 End: 08-23-2022 Preprocedural examination done Irene Mooney MD Work Phone: [facility] Start: 08-23-2022 End: 08-23-2022 Subsequent hospital visit by physician Irene Mooney MD Work Phone: [facility] Comment on above: Pre-operative examin ation; Abdominal pain, generalized Start: 08-19-2022 End: 08-19-2022 ambulatory IRENE MOONEY [facility] Start: 07-30-2022 End: 07-31-2022 ambulatory RAFIAJonathan FOREMAN [facility] Start: 07-30-2022 End: 07-30-2022 ambulatory RAFIA M [facility] Start: 07-30-2022 End: 07-30-2022 Subsequent hospital visit by physician Rafia CLARK Work Phone: Sports Medicine Comment on above: Abdominal pain, unsp ecified abdominal location Start: 06-11-2022 End: 06-11-2022 ambulatory [facility] Work Phone: Start: 06-11-2022 End: 06-11-2022 Patient encounter procedure [facility] Start: 06-08-2022 End: 06-08-2022 ambulatory [facility] Work Phone: Start: 06-08-2022 End: 06-08-2022 Patient encounter procedure [facility]-Radiology, [facility] Start: 05-26-2022 End: 05-26-2022 ambulatory [facility] Work Phone: Start: 05-26-2022 End: 05-26-2022 Patient encounter procedure [facility] Start: 04-16-2022 End: 04-16-2022 ambulatory [facility] Work Phone: Start: 04-16-2022 End: 04-16-2022 Patient encounter procedure [facility]-Ultrasound, [facility] Start: 10-29-2021 End: 10-29-2021 Patient encounter procedure [facility] Procedures Date Procedure Procedure Detail Performing Clinician Start: 01-31-2025 Us pelvic nonobstetr ic real-time image complete Elsa Newsome APRN.CNM Work Phone: Start: 12-12-2024 Radionuclide study of abdomen Ana Leija MD Work Phone: Start: 11-28-2024 MRI of abdomen with contrast Ana Leija MD Work Phone: Start: 11-06-2024 FLORES measurement Ana Leija MD Work Phone: Comment on above: Performed at: [address] [id number] Director: Sandeep Kruger PhD, Phone: [phone] Start: 11-06-2024 Antibody to centrome re measurement Ana Leija MD Work Phone: Comment on above: Test not performed Start: 11-06-2024 Antibody to extracta ble nuclear antigen measurement Ana Leija MD Work Phone: Comment on above: Test not performed Start: 11-06-2024 Antibody to JAYY-1 measurement Ana Leija MD Work Phone: Comment on above: Test not performed Start: 11-06-2024 Antibody to lupus La protein measurement Ana Leija MD Work Phone: Comment on above: Test not performed Start: 11-06-2024 Antibody to SS-A measurement Ana Leija MD Work Phone: Comment on above: Test not performed Start: 11-06-2024 Autoantibody measurement Ana Leija MD Work Phone: Comment on above: Test not performed Start: 11-06-2024 Hepatitis A virus an tibody, total measurement Ana Leija MD Work Phone: Comment on above: Comment: The HAV tot al antibody assay detects both IgG andIgM but does not differentiate between them. A negativeresult suggests susceptibility to infection. A positiveresult could be due to vaccination, previously resolvedinfection or active infection. Testing for HAV IgM shouldbe performed if active HAV infection is suspected. [facility] profiles that will automatically reflex positive HAVtotal antibody results to IgM (e.g., panel #[id number] HAVAntibody w/ Rfx).Performed at: [facility] [id number] Director: Sandeep Kruger PhD, Phone: [phone] Start: 11-06-2024 Immunoglobulin G sub class, G4 measurement Ana Leija MD Work Phone: Start: 11-06-2024 SEPARATOR TENDER antibody measurement Ana Leija MD Work Phone: Comment on above: Test not performed Start: 10-04-2024 End: 10-04-2024 Hepatitis C antibody measurement Ana Leija MD Work Phone: Comment on above: Reactive: Presumptiv e evidence of antibodies to HCV. Follow CDC recommendations for supplemental testing.Non-Reactive: Antibodies to HCV were not detected; does not exclude the possibility of exposure to HCVReactive Results are presumptive evidence of antibodies to HCV. Follow CDC recommendations for supplemental testing.Order confirmation testing: HCV Quant by PCR testing - HCVPCR #[id number] Non Reactive: < 0.8 Equivocal: >/= 0.8 to < 1.0 Reactive: >/= 1.0The CDC requires that a reactive/equivocal HCV antibody result be sent out for confirmation. HCV Quant by PCR testing. Start: 10-04-2024 Hepatitis A virus an tibody, IgM type Ana Leija MD Work Phone: Comment on above: A negative anti-HAV IgM result suggests no recent orcurrent HAV infection. Start: 10-04-2024 Hepatitis B core ant ibody measurement, IgM type Ana Leija MD Work Phone: Start: 10-04-2024 Ultrasonography of abdomen Ana Leija MD Work Phone: Start: 09-28-2024 Vitamin D, 25-hydrox y measurement Ana Leija MD Work Phone: Comment on above: Vitamin D StatusDefi ciency: <20 ng/mL (50nmol/L)Insufficiency: 20-30 ng/mL (50-75 nmol/L)Sufficiency: 30-100 ng/mL (75-250 nmol/L)Toxicity: >100 ng/mL (>250 nmol/L) Start: 07-26-2024 Us pelvic nonobstetr ic real-time image complete Elsa Newsome APRN.CNM Work Phone: Start: 07-19-2024 Urnls dip stick/tabl et rgnt auto w/o microscopy Elsa Newsome APRN.CNGuicho Work Phone: Start: 03-23-2023 Diagnostic radiograp hy of abdomen Start: 01-20-2023 CT of abdomen and pe lvis without contrast Start: 12-13-2022 CT of soft tissues o f neck with contrast Start: 08-23-2022 Urine test visual color yadira Ritter CAD DESIGNER-HIGHWAY WORKER Work Phone: Start: 07-30-2022 Assay of gammaglobul in iga igd igg igm each Rafia Foreman [employer] DES[employer] Work Phone: Start: 07-30-2022 Radiologic exam abdo men 1 view Rafia Foreman [employer] Work Phone: Start: 06-08-2022 Radiologic examinati on of upper gastrointestinal tract and small bowel with serial films Start: 05-26-2022 Diagnostic radiograp hy of abdomen, decubitus and erect Start: 04-16-2022 Ultrasonography of abdomen Start: 10-29-2021 Diagnostic radiograp hy of abdomen Plan of Treatment Date Care Activity Detail Author Start: 09-20-2027 Urine microalbumin profile DTaP,Tdap,Td Vaccine (6 - Td or Tdap) [facility] Start: 07-23-2025 End: 07-23-2025 Patient encounter procedure 07/23/2025 2:45 PM EST Office Visit OB/Gynecology [address] [place], [place] [address] Elsa Newsome APRN.CNM [address] [place] [id number] Annual OB/Gynecology Comment on above: Annual Start: 07-19-2025 GC (Gonorrhea) Scree charito (18-24) GC (Gonorrhea) Screening (18-) [facility] Start: 07-19-2025 Screening for Chlamy lashae trachomatis Chlamydia Screening () [facility] Start: 02-12-2025 End: 02-12-2025 Patient encounter procedure 02/12/2025 1:45 PM EDT Office Visit OB/Gynecology [address] [place], [place] [id number] Elsa Newsome APRN.CNM [address] [place] [address] 4 MO OV OB/Gynecology Comment on above: 4 MO OV Start: 01-31-2025 End: 01-31-2025 ambulatory 01/31/2025 10:00 AM EDT Procedure OB/Gynecology [address] [place] [address] Remote, 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 [address] [place] [address] Ovarian cyst, right [N83.201] OB/Gynecology Comment on above: Ovarian cyst, right [N83.201] Start: 01-21-2025 Influenza vaccination C [facility] Start: 11-29-2024 End: 11-29-2024 Patient encounter procedure 11/29/2024 10:20 AM EDT Office Visit OB/Gynecology [address] [place] [address] Carol Cruz MD [address] [place] [address] New Consult to Weight Mgmt, referred by Jerod OB/Gynecology Comment on above: New Consult to Weigh t Mgmt, referred by Jerod Start: 11-27-2024 End: 11-27-2024 Patient encounter procedure 11/27/2024 11:30 AM EDT Office Visit OB/Gynecology [address] [place] [address] Elsa Newsome APRN.CN [address] [place] [address] 4 MO OV OB/Gynecology Comment on above: 4 MO OV Start: 11-06-2024 Cytoplasmic ANCA Screen [facility] Start: 11-06-2024 Mitochondria Ab [Presence] in Serum [facility] Start: 09-25-2024 End: 09-25-2024 Patient encounter procedure 09/25/2024 10:45 AM EDT Office Visit OB/Gynecology [address] [place] [address] Elsa Newsome APRN.CNM [address] [place] [address] F/u OCP OB/Gynecology Comment on above: F/u OCP Start: 08-01-2024 End: 08-01-2024 Patient encounter procedure 08/01/2024 9:30 AM EDT Office Visit OB/Gynecology [address] [place] [address] Elsa Newsome APRN.CNM [address] [place] [address] US follow up OB/Gynecology Comment on above: US follow up Start: 07-31-2024 End: 07-31-2024 Patient encounter procedure 07/31/2024 11:15 AM EDT Office Visit OB/Gynecology [address] [place] [address] Elsa Newsome APRN.CNM [address] [place] [address] US follow up OB/Gynecology Comment on above: US follow up Start: 07-27-2024 End: 07-27-2025 US Pelvis PELVIC US [facility] Anc Imaging Routine Ovarian cyst, right Expected: 07/27/2024, Expires: 07/27/2025 [facility] Work Phone: Comment on above: Expected: 07/27/2024 , Expires: 07/27/2025 Start: 07-26-2024 End: 07-26-2024 ambulatory 07/26/2024 11:00 AM EST Procedure OB/Gynecology [address] [place] [address] Remote, 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 [employer] [facility] [address] [place] [address] Abnormal uterine bleeding OB/Gynecology Comment on above: Abnormal uterine ble eding Start: 07-19-2024 End: 10-18-2024 17-Hydroxyprogesterone [Mass/volume] in Serum or Plasma [facility] Comment on above: Expected: 07/19/2024 , Expires: 10/18/2024 Start: 07-19-2024 End: 10-18-2024 DHEA-S BLD [facility] Comment on above: Expected: 07/19/2024 , Expires: 10/18/2024 Start: 07-19-2024 End: 10-18-2024 Hemoglobin A1c in Blood [facility] Comment on above: Expected: 07/19/2024 , Expires: 10/18/2024 Start: 07-19-2024 End: 10-18-2024 Prolactin [Mass/volume] in Serum or Plasma [facility] Comment on above: Expected: 07/19/2024 , Expires: 10/18/2024 Start: 07-19-2024 End: 10-18-2024 TESTOSTERONE, FREE AND TOTAL, BY EQUILIBRIUM ULTRAFILTRATION MASS SPECTROMETRY [facility] Comment on above: Expected: 07/19/2024 , Expires: 10/18/2024 Start: 07-19-2024 End: 10-18-2024 Thyrotropin [Units/volume] in Serum or Plasma [facility] Work Phone: Comment on above: Expected: 07/19/2024 , Expires: 10/18/2024 Start: 07-19-2024 End: 07-19-2025 US Pelvis PELVIC US [facility] Anc Imaging Routine Secondary oligomenorrhea Expected: 07/19/2024, Expires: 07/19/2025 [facility] Comment on above: Expected: 07/19/2024 , Expires: 07/19/2025 Start: 06-15-2024 GC (Gonorrhea) Scree charito (18-24) GC (Gonorrhea) Screening () [facility] Start: 06-15-2024 Screening for Chlamy lashae trachomatis Chlamydia Screening () [facility] Start: 01-22-2024 Covid-19 Vaccine ( season) Covid-19 Vaccine () [facility] Start: 01-22-2024 Influenza vaccination Influenza Vacc ine (#1) [facility] Start: 09-03-2023 Anxiety Screening Anxiety Screening [facility] Start: 09-03-2023 Depression Screening Depression Scre rodrigo [facility] Start: 09-03-2023 Hepatitis C screening Hepatitis C Sc sydcharito [facility] Start: 09-03-2023 HIV screening HIV Screening [facility] Start: 01-21-2023 Influenza vaccination INFLUENZA (Sea son Ended) [facility] Start: 08-23-2022 End: 08-23-2022 ENDOSCOPY (UPPER AND COLONOSCOPY) ENDOSCOPY (UPPER AND COLONOSCOPY) Abdominal pain, generalized 08/23/2022 9:02 AM EDT [facility] Start: 06-08-2022 [facility] Start: 05-26-2022 Allergen spec ige cr ude allergen extract each ALLG SPEC IGE CRUDE XTRC EA [facility] Start: 05-26-2022 Assay of gammaglobul in ige ASSAY OF IGE [facility] Start: 01-21-2022 FLU (#1) FLU (#1) [facility] Start: 2021 MenACWY (1 - 2-dose series) MenACWY (1 - 2-dose series) [facility] Start: 2021 MenB (1 of 2 - MenB 2-Dose Series Bexsero) MenB (1 of 2 - MenB 2-Dose Series Bexsero) [facility] Start: 2021 Meningococcal B Vacc ine (1 of 2 - Standard) Meningococcal B Vaccine (1 of 2 - Standard) [facility] Start: 2021 MENINGOCOCCAL CONJUG ATE (1 - 2-dose series) MENINGOCOCCAL CONJUGATE (1 - 2-dose series) [facility] Start: 2020 CHLAMYDIA SCREENING (<18) CHLA MYDIA SCREENING (<18) [facility] Start: 2020 GC (GONORRHEA) SCREE CHARITO (<18) GC (GONORRHEA) SCREENING (<18) [facility] Start: 2020 Hearing Screening Hearing Screening [facility] Start: 2020 Vision Screening Vision Screening [facility] Start: 09-03-2019 PEDS TO ADULT TRANSI TION ANNUAL ASSESSMENT PEDS TO ADULT TRANSITION ANNUAL ASSESSMENT [facility] Start: 2017 Adult depression screening assessment DEPRESSION SCREENING [facility] Start: 2017 PEDS TO ADULT TRANSI TION INITIAL DISCUSSION PEDS TO ADULT TRANSITION INITIAL DISCUSSION [facility] Start: 2016 HPV (1 - 2-dose series) HPV (1 - 2-d ose series) [facility] Start: 09-03-2015 MENINGOCOCCAL B: Con repair armature winder helper based on risk (1 of 2 - Risk Bexsero 2-dose series) MENINGOCOCCAL B: Consider based on risk (1 of 2 - Risk Bexsero 2-dose series) [facility] Start: 2014 HPV VACCINE (1 - 2-d ose series) HPV VACCINE (1 - 2-dose series) [facility] Start: 2012 Tetanus Diphtheria a nd Pertussis Vaccines (1 - Tdap) Tetanus Diphtheria and Pertussis Vaccines (1 - Tdap) [facility] Start: 2012 Urine microalbumin profile DTAP,TDAP,TD (1 - Tdap) [facility] Start: 2006 Hepatitis A (1 of 2 - 2-dose series) Hepatitis A (1 of 2 - 2-dose series) [facility] Start: 2006 MMR (1 of 2 - Standa rd series) MMR (1 of 2 - Standard series) [facility] Start: 2006 Varicella (1 of 2 - 2-dose childhood series) Varicella (1 of 2 - 2-dose childhood series) [facility] Start: 03-04-2006 COVID-19 (#1) COVID-19 (#1) [facility] Start: 03-04-2006 COVID-19 VACCINE (#1) COVID-19 VACCI NE (#1) [facility] Start: 2005 Polio (1 of 3 - 4-do se series) Polio (1 of 3 - 4-dose series) [facility] Start: 2005 Hepatitis B (1 of 3 - 3-dose series) Hepatitis B (1 of 3 - 3-dose series) [facility] Alternaria alternata IgE Ab [Units/volume] in Serum [facility] Brazilian Cockroach I gE Ab [Units/volume] in Serum [facility] Brazilian house dust mite IgE Ab [Units/volume] in Serum [facility] Antibody to lupus La protein measurement [facility] Antibody to SS-A measurement [facility] Aspergillus fumigatu s RAST [facility] BACTERIAL VAGINOSIS AMPLIFICATION BACTERIAL VAGINOSIS AMPLIFICATION Lab Routine Vaginal odor 11/08/2022 12:11 PM EDT [facility] Work Phone: BACTERIAL VAGINOSIS NAAT BACTERI AL VAGINOSIS NAAT Lab Routine Vaginal odor 07/19/2024 9:00 AM EST [facility] Basic metabolic 2008 panel with ionized calcium - Serum or Plasma [facility] Bermuda grass IgE Ab [Units/volume] in Serum [facility] Box elder [facility] NIKOLAS / TRICHOMONA S AMPLIFICATION NIKOLAS / TRICHOMONAS AMPLIFICATION Microbiology Routine Vaginal odor 11/08/2022 12:11 PM EDT [facility] Work Phone: NIKOLAS/TRICHOMONAS NAAT NIKOLAS /TRICHOMONAS NAAT Lab Routine Screening for STDs (sexually transmitted diseases) Vaginal odor 07/19/2024 9:00 AM [facility] Cat dander [facility] CBC W Auto Different ial panel - Blood [facility] Chlamydia trachomatis+Neisseria gonorrhoeae DNA [Presence] in Unspecified specimen by PÉREZ with probe detection GONORRHEA/CHLAMYDIA NAAT Lab Routine Screening for STDs (sexually transmitted diseases) Vaginal odor 07/19/2024 9:00 AM EST [facility] Cladosporium herbaru m IgE Ab [Units/volume] in Serum [facility] Common Ragweed IgE A b [Units/volume] in Serum [facility] [place] [facility] Disaccharidase Analysis [facility] Comment on above: Release Upon Bradfordin g for 1 Occurrences starting 08/23/2022 DNA double strand Ab [Units/volume] in Serum [facility] Dog epithelium IgE A b [Units/volume] in Serum [facility] Endomysial IgA Ab Endomysial IgA Ab Lab Routine Abdominal pain, unspecified abdominal location 07/30/2022 11:17 AM EST [facility] Work Phone: ENDOSCOPY (UPPER AND COLONOSCOPY) ENDOSCOPY (UPPER AND COLONOSCOPY) Abdominal pain, generalized [facility] house dust mite IgE Ab [Units/volume] in Serum [facility] Hepatic function panel [facility] Hepatitis A virus Ab [Presence] in Serum [facility] Hepatitis B virus co re Ab [Presence] in Serum [facility] Hepatitis B virus posey rface Ab [Presence] in Serum [facility] IgG subclass panel [Mass/volume] - Serum [facility] Immunoglobulin E measurement [facility] Mouse urine proteins [facility] MR Abdomen WO and W contrast IV [facility] Patient Education [facility] Work Phone: Patient referral [facility] Work Phone: Pecan or [place] Nut IgE Ab [Units/volume] in Serum [facility] Prothrombin time [facility] Radionuclide study o f abdomen [facility] Rough Pigweed IgE Ab [Units/volume] in Serum [facility] Sheep [place] IgE Ab [Units/volume] in Serum [facility] Silver Birch IgE Ab [Units/volume] in Serum [facility] Smooth muscle Ab [Presence] in Serum [facility] Surgical Pathology L ab Test [facility] Work Phone: Comment on above: Release Upon Cheryl naidu for 1 Occurrences starting 08/23/2022 Kenn IgE Ab [Units/volume] in Serum [facility] Tissue transglutamin ase, IgA Tissue transglutaminase, IgA Lab Routine Abdominal pain, unspecified abdominal location 07/30/2022 11:17 AM EST [facility] Tree pollen [facility] [place] [facility] White Nina IgE Ab [Units/volume] in Serum [facility] White Elm IgE Ab [Units/volume] in Serum [facility] White mulberry IgE A b [Units/volume] in Serum [facility] Immunizations Immunization Date Immunization Notes Care Provider Vick mcnair 05-24-2018 Human Papillomavirus 9-valent vaccine Elsa Newsome APRN.CNM Work Phone: [facility] 09-19-2017 Human Papillomavirus 9-valent vaccine Elsa Newsome APRN.CNM Work Phone: [facility] 05-24-2007 influenza virus vacc ine, unspecified formulation Elsa Jerod MERCEDES Work Phone: [facility] Payers Date Payer Category Payer Self-pay [id number] 2024 Private Health Insurance MMO SU[employer] PPO [id number] 2024 Unknown [id number] 2022 Medicaid [employer] [id number] 2022-Present [phone] [address] [place] [address] Medicaid [id number] 2022 Unknown [employer] [facility] [id number] 2022-Present [address] [place] [address] [id number] 2010 Unknown [id number] 2010 Unknown [id number] 2010 Unknown [id number] 1985 Unknown [id number]. 479 1985 Unknown [id number] 2.840.1.442485.3.579.2. 479 1985 Unknown [id number] 2.840.1.051361.3.579.2. 479 1985 Unknown [id number] 2.840.1.294419.3.579.2. 479 1985 Unknown [id number] 2.840.1.976200.3.579.2. 479 Unknown [id number] 2.840.1.053576.3.579.2. 462 Unknown [id number] 2.840.1.654132.3.579.2. 462 Unknown [id number] 2.840.1.690359.3.579.2. 462 Unknown [id number] 2.840.1.219073.3.579.2. 462 Unknown [id number] 2.840.1.071336.3.579.2. 462 Unknown [id number] 2.840.1.129370.3.579.2. 462 Unknown [id number] 2.840.1.508809.3.579.2. 462 Unknown [id number] 2.840.1.836221.3.579.2. 462 Unknown [id number] .840.1.301135.3.579.2. 462 Unknown [id number] 2.840.1.750344.3.579.2. 462 Unknown [id number] 2.840.1.030079.3.579.2. 462 Unknown [id number] 2.840.1.249920.3.579.2. 462 Social History Date Type Detail Facility Start: 04-18-2014 End: 01-20-2023 Tobacco smoking status NHIS Unknown if ever smoked [facility] Start: 2005 Sex Assigned At Female [facility] Start: 2005 Sex Assigned At Not on file [facility] Start: 08-23-2022 End: 11-08-2022 Gender identity Not on file [facility] Start: 08-19-2022 Tobacco smoking status NHIS Ex-smoker [facility] History of tobacco use Current smoker [facility] History of tobacco use Cigarette Smoker [facility] Start: 08-23-2022 End: 11-08-2022 History of Social function [facility] Start: 08-19-2022 Tobacco Comment Mom outside [facility] Start: 11-08-2022 End: 11-28-2024 Tobacco smoking status NHIS Never smoked tobacco [facility] Start: 11-08-2022 Tobacco use and exposure Smokeless tobacco non-user [facility] Start: 11-08-2022 End: 09-25-2024 Alcohol intake Lifetime non-drinker (finding) [facility] Start: 11-03-2022 National Score (1-100), lower number is lower risk 71 [facility] NEGATED: Highlighted row [facility] Mental Status Date Assessment Result Facility 12-11-2022 Cognitive function Level Of Cons ciousness Awake;Alert;Appropriate [facility] Work Phone: Clinical Notes 08-19-2022 to 01-31-2025 Lul Purdy MD - 01/31/2025 1:48 PM EDT Note Date & Type Note Facility 01-31-2025 Note HNO ID: [id number] Author: LUL PURDY MD Service: ? Author Type: Physician Type: Progress Notes Filed: 02/03/2025 16:12 Note Text: The patient presents for requested ultrasound. Full report available in the Imaging tab in [employer]. Lul Purdy MD [facility] 01-31-2025 History of Presen t illness Narrative The patient presents for requested ultrasound. Full report available in the Imaging tab in [employer]. Lul Purdy MD documented in this encounter [facility] 12-12-2024 Nuclear medicine Diagnostic study note [facility] Imaging Services [address] [place] [address] Hepatobilliary Img w/Pharm Int MR#: [id number] Acct: [id number] Name: NIKKI THACKER Rep #: [id number] : 2005 F 19 From: Nellie White MD PCP: Dr. Ana Leija MD Status: REG CL I Study:Hepatobilliary Img w/Pharm Int Date of Exam: 12/12/24 Exam# [id number] Ordering Dr: Darcy Fox RELAY MECHANICElliot PROCEDURE: HEPATOBILIARY IMG W/PHARM INT 12/12/2024 REASON FOR EXAM: ABDOMINAL PAIN, N/V, RAPID WEIGHT LOSS TECHNIQUE: Intravenous Choletec with planar imaging of the abdomen. RADIOPHARMACEUTICAL: 5.5 mCi mebrofenin COMPARISON: MRI 11/29/2024 FINDINGS: Prompt and homogeneous liver activity. There is gallbladder activity by 15 minutes. 1.4 mcg of CCK was administered. Proximal bowel activity was noted during the ejection fraction base. Gallbladder ejection fraction of only 17% is calculated. NM/Hepatobilliary Img w/Pharm Int IMPRESSION: Patent cystic and common bile ducts. Abnormally low gallbladder ejection fraction, consistent with biliary dyskinesia. Reading Location: [place] [address] CC: RELAY MECHANIC-C Darcy Fox; Dr. Ana Leija MD ~ Animal Pathology Teacher: Signed [facility] 11-06-2024 Evaluation note Diagnosis Onset Date Resolution Abdominal pain acute November 06, 2024 10:36am Constipation acute November 06, 025 10:36am Nausea acute November 06 10:36am Transaminitis acute November 06, 2024 10:36am Vomiting acute November 06 10:36am [facility] Work Phone: 1(706) 580-610206-17-2025 Evaluation note* Diagnosis Onset Date Resolution Status Admit Date Abdominal pain acute November 06, 2024 10:36am Constipation acute November 06 025 10:36am Nausea acute November 06 10:36am Transaminitis acute November 06, 2024 10:36am Vomiting acute November 06 10:36am Abdominal pain acute November 28, 2024 9:30am Nausea acute November 28, 2024 9:30am Vomiting acute November 28, 2024 9:30am [facility] Work Phone: 1(507) 583-925906-17-2025 Evaluation note* Diagnosis Onset Date Resolution Status Admit Date Abdominal pain acute November 06, 2024 10:36am Constipation acute November 06 025 10:36am Nausea acute November 06 10:36am Transaminitis acute November 06, 2024 10:36am Vomiting acute November 06 10:36am Abdominal pain acute November 28, 2024 9:30am Constipation acute November 28 9:30am Liver lesion acute November 28 9:30am Nausea acute November 28, 2024 9:30am PCOS (polycystic ovarian syndrome) acute November 28, 2024 9 :30am Transaminitis acute November 28 025 9:30am [facility] Work Phone: 1(283) 926-265406-17-2025 Evaluation note* Diagnosis Onset Date Resolution Status Admit Date Abdominal pain acute November 06, 2024 10:36am Constipation acute November 06 025 10:36am Nausea acute November 06 10:36am Transaminitis acute November 06, 2024 10:36am Vomiting acute November 06 10:36am Abdominal pain acute November 28, 2024 9:30am Constipation acute November 28 9:30am Liver lesion acute November 28 9:30am Nausea acute November 28, 2024 9:30am PCOS (polycystic ovarian syndrome) acute November 28, 2024 9 :30am Transaminitis acute November 28 025 9:30am Abnormal biliary HIDA scan acute December 20, 2024 9:55am Lower abdominal pain acute December 20, 2024 9:55am LUQ pain acute December 20 9:55am N&V (nausea and vomiting) acute December 20, 2024 9:55am PCOS (polycystic ovarian syndrome) acute December 20, 2024 9:55am [facility] Work Phone: [phone] Instructions* Patient Instructions* Elsa Newsome APRN.CNM - 09/25/2024 11:19 AM EDT For Vaginal Odor: 1) Oral probiotic: Florajen or Clarivee 2) https://www.about.me/products/jvpcr-ihip-amhoxba-suppositories -You can use 2-4 suppositories a week for 2 weeks then stop. I don't recommend routine use but if odor increased can use periodically. Continue taking your control (Aaron) for managing PCOS. Aim to take it at bedtime instead of inthe morning so that any nausea or dizziness may be reduced. It s recommended to stay on it for at least 6 months to help regulate your cycles and manage elevated testosterone. For the vaginal irritation and odor, note that the Monistat treatment may cause irritation for up to one week. Wait 3-4 weeks and if the odor returns, you can try the boric acid vaginal suppository as previously recommended. Monitor your symptoms (especially severe dizziness, trouble breathing, or continued heart racing) and contact us if these worsen. [facility] NoteHNO ID: [id number] Author: ELSA NEWSOME APRN.CNM Service: ? Author Type: Client Strategist Type: Progress Notes Filed: 09/25/2024 12:31 Note Text: Obstetrics and Gynecology [place] ASSISTANT AUDITOR Visit Subjective Recording using ambient [employer] software for draft documentation of the visit was discussed with the patient/authorized territory account representative; all questions welcomed and answered. Patient/authorized territory account representative agreed to proceed CHIEF COMPLAINT: control follow up HPI: The patient is a 19-year-old female with a history of PCOS, presenting for follow-up on control use and associated symptoms. The patient was started on Aaron in July to address PCOS, irregular menses, ovarian cysts, and elevated testosterone levels. She reports not completing a full month of the control pack due to experiencing a prolonged menses lasting 2 weeks, characterized by variable flow. Following advice, she paused the control and resumed it with a new pack, currently in the third week. Since resuming Aaron, she reports nausea, dizziness, tachycardia, and constipation. She is also taking phentermine for weight loss, prescribed by Dr. David, and has lost approximately 24 lbs, currently weighing 153 lbs. She notes dietary changes, including reduced intake and healthier food choices, primarily drinking water instead of soda. She denies using condoms during intercourse and is not primarily using Aaron for contraception. She additionally reports persistent vaginal odor and discharge, initially white and now dark yellow with an odor. She attempted to use Uro pH balancers but experienced nausea and irritation, leading her to use Monistat for suspected yeast infection. She denies using boric acid suppositories previously recommended. She denies cephalalgia, visual changes, chest pain, or leg pain, but notes occasional dyspnea associated with tachycardia. HISTORY: OB History Gravida0 Para0 Term0 Preterm0 AB0 Living0 SAB0 IAB0 Ectopic0 Multiple0 Live Births0 Supervisor Nutritional Ye[employer] History LMP: 09/04/2024 (Within Days), Having periods Age at Menarche: 12 Age at First : Age at Menopause: Supervisor Nutritional Ye[employer] History Comments: Sexual Activity: Yes; Male Contraception: Pill PAST MEDICAL HISTORY Diagnosis Date NEGATIVE MEDICAL HISTORY PAST SURGICAL HISTORY Procedure Laterality Date COLONOSCOPY - DIAGNOSTIC 08/2022 stomach issues EGD W/O BRSH SPEC VARICIES INJ 08/2022 FAMILY HISTORY Problem Relation Age of Onset Thyroid Mother Social History Tobacco Use Smoking status: Never Smokeless tobacco: Never Vaping Use Vaping status: Never Used Substance Use Topics Alcohol use: Never Drug use: Never Current Outpatient Medications Medication Sig Phentermine HCl 37.5 mg tablet Take 1 tablet by mouth once daily. Drospirenone-Ethinyl Estradiol (AARON, 28,) 3-0.02 mg per tablet Take 1 tablet by mouth once daily. No current facility-administered medications for this visit. ALLERGIES Allergen Reactions Amoxicillin Rash Red Dye Hives, Swelling REVIEW OF SYSTEMS: Constitutional: (+) weight loss Head: (-) headache Eyes: (+) blurred vision Cardiovascular: (+) palpitations, (-) chest pain Respiratory: (+) shortness of breath Gastrointestinal: (+) nausea, (+) constipation Genitourinary: (+) vaginal discharge, (+) vaginal odor, (+) vaginal irritation Musculoskeletal: (-) leg pain Neurological: (+) dizziness Objective SENSITIVE EXAM: Sensitive exam not performed. PHYSICAL EXAM: BP 106/64 Wt 153 lb (69.4kg) LMP 09/04/2024 General: No acute distress. CV: Regular rate and rhythm, no murmurs, gallops, or rubs. Resp: Lungs clear to auscultation bilaterally. Abd: No tenderness, no masses palpated. : No external irritation or lesions noted. Assessment AND Plan ASSESSMENT AND PLAN: 1. PCOS (polycystic ovarian syndrome) (E28.2) Initiated Aaron in July to address irregular menstrual cycles, ovarian cysts, and elevated testosterone levels associated with PCOS. Patient has not completed a full pack of Aaron yet. - Continue Aaron for a minimum of 6 months to allow hormonal regulation. - Educated patient on the importance of consistent use to manage PCOS symptoms and reduce elevated testosterone levels. - Advised patient to take Aaron at bedtime to potentially reduce nausea. 2. Elevated testosterone level (R79.89) Initiated Aaron in July to address irregular menstrual cycles, ovarian cysts, and elevated testosterone levels associated with PCOS. Patient has not completed a full pack of Aaron yet. - Continue Aaron for a minimum of 6 months to allow hormonal regulation. - Educated patient on the importance of consistent use to manage PCOS symptoms and reduce elevated testosterone levels. - Advised patient to take Aaron at bedtime to potentially reduce nausea. 3. Vaginal discharge (N89.8) Persistent vaginal odor and discharge noted. Recent use of Monistat for suspected yeast infection; irritation (more content not included)...[facility]05-06-[facility]25 History of Present illness Narrative* Elsa Newsome APRN.CALEB - 09/25/2024 10:45 AM EDT Images from the original note were not included. Obstetrics and Gynecology [place] ASSISTANT AUDITOR Visit Subjective Recording using barcoo software for draft documentation of the visit was discussed with the patient/authorized territory account representative; all questions welcomed and answered. Patient/authorized territory account representative agreed to proceed CHIEF COMPLAINT: control follow up HPI: The patient is a 19-year-old female with a history of PCOS, presenting for follow-up on control use and associated symptoms. The patient was started on Aaron in July to address PCOS, irregular menses, ovarian cysts, and elevated testosterone levels. She reports not completing a full month of the control pack due to experiencing a prolonged menses lasting 2 weeks, characterized by variable flow. Following advice, she paused the control and resumed it with a new pack, currently in the third week. Since resuming Aaron, she reports nausea, dizziness, tachycardia, and constipation. She is also taking phentermine for weight loss, prescribed by Dr. David, and has lost approximately 24 lbs, currently weighing 153 lbs. She notes dietary changes, including reduced intake and healthier food choices, primarily drinking water instead of soda. She denies using condoms during intercourse and is not primarily using Aaron for contraception. She additionally reports persistent vaginal odor and discharge, initially white and now dark yellowwith an odor. She attempted to use Uro pH balancers but experienced nausea and irritation, leading her to use Monistat for suspected yeast infection. She denies using boric acid suppositories previously recommended. She denies cephalalgia, visual changes, chest pain, or leg pain, but notes occasional dyspnea associated with tachycardia. HISTORY: OB History Gravida0 Para0 Term0 Preterm0 AB0 Living0 SAB0 IAB0 Ectopic0 Multiple0 Live Births0 Supervisor Nutritional Yeast History LMP: 09/04/2024 (Within Days), Having periods Age at Menarche: 12 Age at First : Age at Menopause: Supervisor Nutritional Yeast History Comments: Sexual Activity: Yes; Male Contraception: Pill PAST MEDICAL HISTORY Diagnosis Date NEGATIVE MEDICAL HISTORY PAST SURGICAL HISTORY Procedure Laterality Date COLONOSCOPY - DIAGNOSTIC 08/2022 stomach issues EGD W/O BRSH SPEC VARICIES INJ 08/2022 FAMILY HISTORY Problem Relation Age of Onset Thyroid Mother Social History Tobacco Use Smoking status: Never Smokeless tobacco: Never Vaping Use Vaping status: Never Used Substance Use Topics Alcohol use: Never Drug use: Never Current Outpatient Medications Medication Sig Phentermine HCl 37.5 mg tablet Take 1 tablet by mouth once daily. Drospirenone-Ethinyl Estradiol (AARON, 28,) 3-0.02 mg per tablet Take 1 tablet by mouth once daily. No current facility-administered medications for this visit. ALLERGIES Allergen Reactions Amoxicillin Rash Red Dye Hives, Swelling REVIEW OF SYSTEMS: Constitutional: (+) weight loss Head: (-) headache Eyes: (+) blurred vision Cardiovascular: (+) palpitations, (-) chest pain Respiratory: (+) shortness of breath Gastrointestinal: (+) nausea, (+) constipation Genitourinary: (+) vaginal discharge, (+) vaginal odor, (+) vaginal irritation Musculoskeletal: (-) leg pain Neurological: (+) dizziness Objective SENSITIVE EXAM: Sensitive exam not performed. PHYSICAL EXAM: BP 106/64 Wt 153 lb (69.4kg) LMP 09/04/2024 General: No acute distress. CV: Regular rate and rhythm, no murmurs, gallops, or rubs. Resp: Lungs clear to auscultation bilaterally. Abd: No tenderness, no masses palpated. : No external irritation or lesions noted. Assessment & Plan ASSESSMENT AND PLAN: 1. PCOS (polycystic ovarian syndrome) (E28.2) Initiated Aaron in July to address irregular menstrual cycles, ovarian cysts, and elevated testosterone levels associated with PCOS. Patient has not completed a full pack of Aaron yet. - Continue Aaron for a minimum of 6 months to allow hormonal regulation. - Educated patient on the importance of consistent use to manage PCOS symptoms and reduce elevated testosterone levels. - Advised patient to take Aaron at bedtime to potentially reduce nausea. 2. Elevated testosterone level (R79.89) Initiated Aaron in July to address irregular menstrual cycles, ovarian cysts, and elevated testosterone levels associated with PCOS. Patient has not completed a full pack of Aaron yet. - Continue Aaron for a minimum of 6 months to allow hormonal regulation. - Educated patient on the importance of consistent use to manage PCOS symptoms and reduce elevated testosterone levels. - Advised patient to take Aaron at bedtime to potentially reduce nausea. 3. Vaginal discharge (N89.8) Persistent vaginal odor and discharge noted. Recent use of Monistat for suspected yeast infection; irritation and discharge continue. Previous vaginal testing was negative. - Advised against further use of URO probiotics. - Recommended waiting 3-4 weeks before initiating boric acid vaginal suppositories. - Monitor for severe itching, burning, or discharge; will consider further testing if symptoms persist. 4. Nausea (R11.0) Dizziness and giddiness (R42) Symptoms likely secondary to Phentermine use, a known stimulant causing anorexia, nausea, and tachycardia. - Discussed potential side effects of Phentermine - Recommended slow positional changes to mitigate dizziness. Elsa Newsome APRN.CNM documented [facility] Telephone encounter Note * Telephone Encounter - Tray Morgan RN - 08/21/2024 2:17 PM EDT Pt notified. Bleeding precautions reviewed. Appt scheduled with AMENA. Tray Morgan RN [facility]04-01-2025 Miscellaneous Notes* Telephone Encounter - Tray Morgan RN - 08/21/2024 2:17 PM EDT Pt notified. Bleeding precautions reviewed. Appt scheduled with AMENA. Tray Morgan RN * Telephone Encounter - Madeleine Rothman RN - 08/21/2024 2:05 PM EDT Left message to call office. Madeleine Rothman RN * Telephone Encounter - Leatha Hansen APRN.CNP - 08/21/2024 1:57 PM EDT Have her stop the pills until this Tuesday then restart with a new pack. Follow up with AMENA. Leatha Hansen APRN.CNP * Telephone Encounter - Darcy Fuentes RN - 08/21/2024 11:14 AM EDT AMENA patient started on OCP this month. Last menses was 2 months ago. Patient is on her 3rd week of her 1st pack. Has been bleeding for 2 weeks. States she thinks she's about to stop bleeding and then her bleeding increases. Wearing a tampon. Changing every 1/2 hour to 1 hour because they are uncomfortable. Not saturating. Discussed changing to pads for comfort. Has not missed or skipped any pills.Advised that irregular bleeding is normal while adjusting to the hormones especially if her menses are irregular and she hasn't had one in 2 months. Can you please advise in AMENA's absence. Thank you. Darcy Fuentes RN documented in this encounterProm[facility]04-[facility]-2025 Telephone encounter Note * Telephone Encounter - Madeleine Rothman RN - 08/21/2024 2:05 PM EDT Left message to call office. Madeleine Rothman RN [facility]04-01-[facility] Telephone encounter Note* Telephone Encounter - Leatha Hansen APRN.CNP - 08/21/2024 1:57 PM EDT Have her stop the pills until this Tuesday then restart with a new pack. Follow up with AMENA. Leatha Hansen APRN.SOL [facility] Work Phone: 1(215) 391-842004-01-2025 Telephone encounter Note* Telephone Encounter - Darcy Fuentes RN - 08/21/2024 11:14 AM EDT AMENA patient started on OCP this month. Last menses was 2 months ago. Patient is on her 3rd week of her 1st pack. Has been bleeding for 2 weeks. States she thinks she's about to stop bleeding and then her bleeding increases. Wearing a tampon. Changing every 1/2 hour to 1 hour because they are uncomfortable. Not saturating. Discussed changing to pads for comfort. Has not missed or skipped any pills.Advised that irregular bleeding is normal while adjusting to the hormones especially if her menses are irregular and she hasn't had one in 2 months. Can you please advise in AMENA's absence. Thank you. Darcy Fuentes RN [facility]03-12-2025 Telephone encounter Note* Telephone Encounter - Carol Cruz MD - 08/01/2024 8:57 AM EDT I typically bill based on their co morbidities like PCOS, fatigue, HTN, pain etc- things we are trying to help correct or improve. Sometimes I won't know until I see her. [facility] Work Phone: 1(556) 189-950903-12-2025 Miscellaneous Notes* Telephone Encounter - Carol Cruz MD - 08/01/2024 8:57 AM EDT I typically bill based on their co morbidities like PCOS, fatigue, HTN, pain etc- things we are trying to help correct or improve. Sometimes I won't know until I see her. * Telephone Encounter - Darcy Fuentes RN - 08/01/2024 8:26 AM EDT Patient has a new wt management in November. What CPT and DX codes to you give to patient's when they want to check with their insurance about coverage? Thank you. Darcy Fuentes RN * Telephone Encounter - Gladys Sanchez - 07/31/2024 5:06 PM EDT Patient called requesting CPT and DX codes for weight prabhakar Patient wants to make sure ins will cover that Please advise documented in this encounterProm[facility]03-[facility] Telephone encounter Note * Telephone Encounter - Darcy Fuentes RN - 08/01/2024 8:26 AM EDT Patient has a new wt management in November. What CPT and DX codes to you give to patient's when they want to check with their insurance about coverage? Thank you. Darcy Fuentes RN [facility]03-11[facility] Telephone encounter Note* Telephone Encounter - Gladys Sanchez - 07/31/2024 5:06 PM EDT Patient called requesting CPT and DX codes for weight prabhakar Patient wants to make sure ins will cover that Please advise [facility] Work Phone: 1(775) 195-301203-11-2025 Instructions* Patient Instructions* Elsa Newsome APRN.CNM - 07/31/2024 11:31 AM EDT Weight management. In person or virtual Please call [phone] to schedule your appointment. Oral Contraceptives: The Pill Beginning the Pill Pills come in either a 21 day pack or a 28 day pack. With the 21 day pack you will take one pill for 21 days then no pill for 7 days, during which time you will have what is known as withdrawal bleeding. The 28 day pack allows you to take a pill every day of the cycle with no interruptions. The first 21 pills are the pills with the active ingredients and the last 7 are the nonmedical pills (placebo) or they may contain iron. There will be bleeding during the week you are taking the nonmedical pills. The advantage to the 28 day pack is that you don t have to keep track of when you stopped the pill. Unless otherwise instructed, you should start your pills the Tuesday following your first day of bleeding with your next period (if your period starts on a Tuesday, you should start pills the same day) Read your information packet that comes with the pills. Pill Benefits The pill is the most popular method of reversible control being used today. Millions of womenrely on oral contraceptives as their control method. It is important to have an examination by your physician to determine if the pill is safe for you. There are several advantages associated with the pill: it is 97-98% effective; may improve acne; periods are more regular and less painful; there is less iron deficiency anemia in pill users. USP use is associated with a decreased incidence of ovarian and uterine cancer. There is also no evidence that the pill increases the incidenceof any cancer. How Oral Contraceptives Work Oral contraceptives come in two varieties. One is the combination pill which contains both estrogenand progesterone. Combination pills are considered 98-99% effective in preventing . This pill comes in either monophasic, which delivers the same amount of estrogen and progesterone throughout the cycle; and triphasic, which try tries to mimic the normal hormone cycle by changing the levels of the hormones in the pills during the month. There is no real advantage to taking the one over the other. The other type of pill only contains progesterone. It is best used for women who can t take estrogen. This type of pill is slightly less effective than the combination pill in preventing preg clarke. Oral contraceptives prevent ovulation (release of an egg from the ovary) by suppressing the pituitary gland s action. The pill does NOT prevent sexually transmitted disease. Obtaining a Prescription It is important to see your doctor before starting oral contraceptives so that you can have a full medical history taken and a physical examination given. Certain medical conditions may make the pillinappropriate for you, therefore it is very important to be honest and as complete as possible withthe information you share with your doctor. The types of predisposing factors which would make the pill a poor choice of control would include: History of blood clots Stroke Serious liver disease or impaired liver function Unexplained vaginal bleeding or Cancer of the reproductive system Active gall bladder disease Hypertension Possible Side Effects It can take up to three months for your body to become adjusted to the pill. The more common side effects experienced at this time are: breakthrough spotting or bleeding, which is bleeding at any other time other than when you should be having a period; nausea or vomiting; breast tenderness; and mild fluid retention. There is no long line teamster weight gain with the use of the pill. Breakthrough bleeding is the most common complaint of new pill users. There is no way to predict who will have it and there is no way of preventing it. Breakthrough bleeding usually subsides on its own with no further treatment after the first three months of taking the pill. If these symptoms continue to occur after the first three months you should check with your physician to see if there is any physical cause andpossibly change to another control pill. Problems: Missed 1 pill: Take 2 pills the next day. Missed 2 pills: Take 2 pills the next day and 2 pills the following day. Also use another form of control (condoms) along with the pill for the rest of the month. Missed 3 or more pills: You have two choices. You can take two pills each day until you are on schedule, plus use an additional form of control along with the pill for the rest of the month. Oryou can stop the pill and start a completely new pack of pills the next Tuesday. You must use another form of control with the pill for at least the first two weeks of the new pack. You re ill and you have been vomiting or have diarrhea: You must use another form of control with the pill since the pill may not be fully absorbed during your illness. Continue to use the added control until the end of the cycle. Desire to become : Stop using the pill for one month before trying to become . Taking other medications: The control pill is less effective when you take the antibiotic Rifampin, epilepsy (seizure) drugs such as phenytoin, carbamazepine, phenobarbital, topiramate and somemedications for HIV. Let your doctor know if you start taking any of these medications while on thepill. Symptoms to Notify Your Doctor with Immediately: Pain in your chest or legs Continuous blurred vision Severe headaches Slurred speech Tingling or weakness on one side of your body Shortness of breath Swelling of one leg Refills of Control Pills You need to see a doctor every year for a refill of your prescription. This is necessary in order that your health can be monitored closely while you are taking control pills. If your prescription should before your next scheduled appointment you can usually get a one month extension from your doctors office if you call during regular business hours about one week before you need to start the new package of pills. This allows the physician to refer to your chart for necessary health information. Polycystic Ovary Syndrome Women with polycystic ovary syndrome (PCOS) have a hormonal imbalance that interferes with normal reproductive processes. PCOS usually starts at puberty and is associated with irregular periods and other hormone related symptoms. The most concerning issues with PCOS are the increase of infertility,the risk of developing type 2 diabetes and cardiovascular disease, and the higher risk of developing endometrial (uterine) cancer at an early age. What are the symptoms of PCOS? Irregular menstrual periods, or no menstrual periods at all Decreased frequency or complete lack of ovulation, resulting in problems with infertility Obesity, often specifically characterized by weight gain in the upper body and abdomen Oily skin and hair and persistent acne into adulthood Abnormal hair growth, in a masculine distribution (facial hair, heavy hair growth on arms, chest, and abdomen) Tendency to develop type 2 diabetes What causes PCOS syndrome? Research is ongoing to uncover a cause for PCOS. There is evidence that shows a link between certain forms of PCOS and family history, suggesting a genetic basis for the condition. How is PCOS diagnosed? Most cases can be diagnosed with a thorough evaluation of your medical history and symptoms, as well as a physical exam. A blood test may be required to measure the levels of various hormones. In some cases, an ultrasound of the ovaries may help with diagnosis. How is PCOS treated? Although PCOS can be treated with medications, treatment is often highly dependent on your goals and your symptoms. If you want to become , you may need the assistance of oral or injected fertility medications. If you do not want to become , you may consider control pills to prevent pregnancyand regulate periods. Other symptoms such as unwanted hair growth, acne, obesity, and diabetes should be managed by specialists in those areas. Specific treatment options should be discussed with your physician. How can PCOS be prevented? There is no known prevention for PCOS. However, through proper nutrition and weight management manywomen with polycystic ovary syndrome can avoid developing diabetes and cardiovascular problems. How can I improve my chances of conceiving if I have PCOS? While specific fertility issues should be addressed with your physician, there are some general healthcare guidelines that may improve your chances of becoming : Folic acid (400 mcg. supplement a day, with a diet rich in folic acid, including leafy green vegetables, dried beans, liver, and citrus fruits) Limit caffeine (Fewer than two caffeinated beverages per day) Eat well (Healthy well-balanced diet) Exercise and maintain a healthy weight (Maintain a normal exercise routine, 20 to 30 minutes per day, 4 to 5 times per week.) This information is provided by your physician and the [facility] Journal of Medicine and the[facility] [email or web address]. This information has not been designed to replace a physician's medical assessment and medical judgment. Copyright 1994- 2012 [facility]. All rights reserved Vaginal This information is provided by the [facility] and is not intended to replace the medical advice of your doctor or health care provider. Please consult your health care provider for advice about a specific medical condition. For additional health information, please contact the Center for Consumer Health Information at the [facility] or toll-free extension [phone]. If you prefer, you may visit [email or web address] or [email or web address]. This document was last reviewed on: 2009 index#8316 For Vaginal Odor: 1) Oral probiotic: Florajen or Clarivee 2) [email or web address]/products/sufcf-gbvo-utvohil-suppositories -You can use 2-4 suppositories a week for 2 weeks then stop. I don't recommend routine use but if odor increased can use periodically. documented in this encounterPromedica [facility]03-11-2025 NoteHNO ID: [id number] Author: ELSA NEWSOME APRN.CNM Service: ? Author Type: Client Strategist Type: Progress Notes Filed: 07/31/2024 13:03 Note Text: Nikki Thacker is a 18 year old female who presents for problem visit for . HPI: Presents today for follow up results of labs and ultrasound. Menses: cycles irregular per patient, 3-4 days of flow. Will have menses every 1-3 months. It has been this way for over a year after she stopped control. Denies acne, hirsutism or other concerns. No pelvic pain, pain with intercourse, or bleeding with intercourse. Also complaint of vaginal odor. Had mood swings on patch, cry, depression, weight gain, and didn't feel good when she was on it. Used patch for about a year. OB History Gravida0 Para0 Term0 Preterm0 AB0 Living0 SAB0 IAB0 Ectopic0 Multiple0 Live Births0 Supervisor Nutritional Yeast History LMP: 06/11/2024 (Within Days), Having periods Age at Menarche: 12 Age at First : Age at Menopause: Supervisor Nutritional Yeast History Comments: Sexual Activity: Yes; Male Contraception: None PAST MEDICAL HISTORY Diagnosis Date NEGATIVE MEDICAL HISTORY PAST SURGICAL HISTORY Procedure Laterality Date COLONOSCOPY - DIAGNOSTIC 08/2022 stomach issues EGD W/O BRSH SPEC VARICIES INJ 08/2022 FAMILY HISTORY Problem Relation Age of Onset Thyroid Mother Social History Tobacco Use Smoking status: Never Smokeless tobacco: Never Vaping Use Vaping status: Never Used Substance Use Topics Alcohol use: Never Drug use: Never Current Outpatient Medications Medication Sig XULANE 150-35 mcg/24 hr patch Apply 1 Patch as directed one time a week. (Patient not taking: Reported on 07/19/2024) No current facility-administered medications for this visit. Allergies As of Date: 07/31/2024 Allergen Noted Reaction AMOXICILLIN 04/28/2015 Rash RED DYE 04/28/2015 Hives and Swelling Fully Assessed 07/31/2024 REVIEW OF SYSTEMS Abdomen: No bloating, early satiety, indigestion, or increased flatulence. No abdominal pain, nausea, vomiting, diarrhea, or constipation. Bladder: No dysuria, gross hematuria, urinary frequency, urinary urgency, or incontinence. Breast: No breast lumps, nipple d/c, overlying skin changes, redness or skin retraction. Expanded ROS: N/A Allergies and current medication updated:Yes SENSITIVE EXAM: The sensitive examination was discussed with the Patient or Patient's Authorized Medical Care Manager. As applicable, any other physician, advance practice provider, medical student, or other health professional student that will be observing or involved in the sensitive examination for educational or training purposes was discussed with the Patient or Authorized Medical Care Manager. The Patient or Authorized Medical Care Manager has agreed to proceed with the sensitive examination. (Sensitive examination includes inspection and/or palpation of the breasts, pelvis, prostate and anorectal regions). EXAM: BP 110/68 Wt 170 lb (77.1kg) LMP 06/11/2024 GENERAL: pleasant, female in no apparent distress HEENT: Normocephalic and atraumatic NECK: Supple, full range of motion NEURO: alert and oriented x3,exam grossly non-focal EXTREMITIES: normal Latest Ref Rng 07/19/2024 Testosterone, Total, S 10.0 - 55.0 ng/dL 39.3 Testosterone, Free, S 0.10 - 0.85 ng/dL 1.01 (H) Testosterone, % Free, S 0.50 - 2.80 % 2.57 Hemoglobin A1C 4.3 - 5.6 % 4.8 Estimated Average Glucose mg/dL 91 TSH 0.510 - 4.300 mIU/L 1.590 Prolactin 4.4 - 33.8 ng/mL 16.6 DHEA-S 65.1 - 368.0 ug/dL 111.1 Hydroxyprogesterone <=206.00 ng/dL 41.47 Legend: (H) High Indication Abnormal uterine bleeding, irregular cycles Impression The uterus is anteverted and measures 78 mm x 30 mm x 43 mm. The endometrial thickness is 8.7 mm. The right ovary measures 51 mm x 43 mm x 39 mm and contains a 45 mm x 38 mm x 35 mm unilocular non-simple cyst (internal debris and/or incomplete septation) with smooth inner wall. O-RADS 2 There is a right adnexal unilocular simple adnexal cyst that measures 13.8 mm x 11.2 mm x 10.9 mm. The left ovary measures 33 mm x 24 mm x 20 mm. There is free fluid visualized. Recommendations O-RADS 2 ovarian lesion, non-simple cyst, almost certainly benign. Follow up ultrasound is recommended in 6 months. Simple adnexal cyst, no follow up imaging is needed. Assessment AND Plan Class 1 obesity without serious comorbidity with body mass index (BMI) of 30.0 to 30.9 in adult, unspecified obesity type Orders: Drospirenone-Ethinyl Estradiol (AARON, 28,) 3-0.02 mg per tablet; Take 1 tablet by mouth once daily. CONSULT TO [facility]; Future PCOS (polycystic ovarian syndrome) Orders: Drospirenone-Ethinyl Estradiol (AARON, 28,) 3-0.02 mg per tablet; Take 1 tablet by mouth once daily. Ovarian cyst, right -Follow up US in 6 months Adnexal cyst -Follow up US in 6 months Secondary oligomenorrhea Orders: Drospirenone-Ethinyl Estradiol (AARON, (more content not included)...[facility]03-11-2025 History of Present illness Narrative* Elsa Newsome APRN.OFEM - 07/31/2024 11:01 AM EDT Nikki Thacker is a 18 year old female who presents for problem visit for . HPI: Presents today for follow up results of labs and ultrasound. Menses: cycles irregular per patient, 3-4 days of flow. Will have menses every 1-3 months. It has been this way for over a year after she stopped control. Denies acne, hirsutism or other concerns. No pelvic pain, pain with intercourse, or bleeding with intercourse. Also complaint of vaginal odor. Had mood swings on patch, cry, depression, weight gain, and didn't feel good when she was on it. Used patch for about a year. OB History Gravida0 Para0 Term0 Preterm0 AB0 Living0 SAB0 IAB0 Ectopic0 Multiple0 Live Births0 Supervisor Nutritional Yeast History LMP: 06/11/2024 (Within Days), Having periods Age at Menarche: 12 Age at First : Age at Menopause: Supervisor Nutritional Yeast History Comments: Sexual Activity: Yes; Male Contraception: None PAST MEDICAL HISTORY Diagnosis Date NEGATIVE MEDICAL HISTORY PAST SURGICAL HISTORY Procedure Laterality Date COLONOSCOPY - DIAGNOSTIC 08/2022 stomach issues EGD W/O BRSH SPEC VARICIES INJ 08/2022 FAMILY HISTORY Problem Relation Age of Onset Thyroid Mother Social History Tobacco Use Smoking status: Never Smokeless tobacco: Never Vaping Use Vaping status: Never Used Substance Use Topics Alcohol use: Never Drug use: Never Current Outpatient Medications Medication Sig XULANE 150-35 mcg/24 hr patch Apply 1 Patch as directed one time a week. (Patient not taking: Reported on 07/19/2024) No current facility-administered medications for this visit. Allergies As of Date: 07/31/2024 Allergen Noted Reaction AMOXICILLIN 04/28/2015 Rash RED DYE 04/28/2015 Hives and Swelling Fully Assessed 07/31/2024 REVIEW OF SYSTEMS Abdomen: No bloating, early satiety, indigestion, or increased flatulence. No abdominal pain, nausea, vomiting, diarrhea, or constipation. Bladder: No dysuria, gross hematuria, urinary frequency, urinary urgency, or incontinence. Breast: No breast lumps, nipple d/c, overlying skin changes, redness or skin retraction. Expanded ROS: N/A Allergies and current medication updated:Yes SENSITIVE EXAM: The sensitive examination was discussed with the Patient or Patient's Authorized Medical Care Manager. As applicable, any other physician, advance practice provider, medical student, or other health professional student that will be observing or involved in the sensitive examination for educational or training purposes was discussed with the Patient or Authorized Medical Care Manager. The Patient or Authorized Medical Care Manager has agreed to proceed with the sensitive examination. (Sensitive examination includes inspection and/or palpation of the breasts, pelvis, prostate and anorectal regions). EXAM: BP 110/68 Wt 170 lb (77.1kg) LMP 06/11/2024 GENERAL: pleasant, female in no apparent distress HEENT: Normocephalic and atraumatic NECK: Supple, full range of motion NEURO: alert and oriented x3,exam grossly non-focal EXTREMITIES: normal Latest Ref Rng 07/19/2024 Testosterone, Total, S 10.0 - 55.0 ng/dL 39.3 Testosterone, Free, S 0.10 - 0.85 ng/dL 1.01 (H) Testosterone, % Free, S 0.50 - 2.80 % 2.57 Hemoglobin A1C 4.3 - 5.6 % 4.8 Estimated Average Glucose mg/dL 91 TSH 0.510 - 4.300 mIU/L 1.590 Prolactin 4.4 - 33.8 ng/mL 16.6 DHEA-S 65.1 - 368.0 ug/dL 111.1 Hydroxyprogesterone <=206.00 ng/dL 41.47 Legend: (H) High Indication Abnormal uterine bleeding, irregular cycles Impression The uterus is anteverted and measures 78 mm x 30 mm x 43 mm. The endometrial thickness is 8.7 mm. The right ovary measures 51 mm x 43 mm x 39 mm and contains a 45 mm x 38 mm x 35 mm unilocular non-simple cyst (internal debris and/or incomplete septation) with smooth inner wall. O-RADS 2 There is a right adnexal unilocular simple adnexal cyst that measures 13.8 mm x 11.2 mm x 10.9 mm. The left ovary measures 33 mm x 24 mm x 20 mm. There is free fluid visualized. Recommendations O-RADS 2 ovarian lesion, non-simple cyst, almost certainly benign. Follow up ultrasound is recommended in 6 months. Simple adnexal cyst, no follow up imaging is needed. Assessment & Plan Class 1 obesity without serious comorbidity with body mass index (BMI) of 30.0 to 30.9 in adult, unspecified obesity type Orders: Drospirenone-Ethinyl Estradiol (AARON, 28,) 3-0.02 mg per tablet; Take 1 tablet by mouth once daily. CONSULT TO [facility]; Future PCOS (polycystic ovarian syndrome) Orders: Drospirenone-Ethinyl Estradiol (AARON, 28,) 3-0.02 mg per tablet; Take 1 tablet by mouth once daily. Ovarian cyst, right -Follow up US in 6 months Adnexal cyst -Follow up US in 6 months Secondary oligomenorrhea Orders: Drospirenone-Ethinyl Estradiol (AARON, 28,) 3-0.02 mg per tablet; Take 1 tablet by mouth once daily. Elevated testosterone level Orders: Drospirenone-Ethinyl Estradiol (AARON, 28,) 3-0.02 mg per tablet; Take 1 tablet by mouth once daily. Vaginal odor -Discussed BV and yeast negative. -Reviewed vulvar hygiene, probiotic, and boric acid. Elsa Newsome APRN.CNM documented in this encounterProm[facility] Telephone encounter Note * Telephone Encounter - Elsa Newsome APRN.CNM - 07/27/2024 4:41 PM EST My chart sent to patient and order placed for follow up in 6 months. Elsa Newsome, CAD DESIGNER.CNM [facility]03-07-2025 Miscellaneous Notes* Telephone Encounter - Elsa Newsome APRN.CNM - 07/27/2024 4:41 PM EST My chart sent to patient and order placed for follow up in 6 months. Elsa Newsome APRN.CNM * Telephone Encounter - Anika Davenport LPN - 07/27/2024 4:03 PM EST Patient called stating that she saw her ultrasound results on Mychart and would like provider to review. documented in this encounterProm[facility]03-07-[facility]25 Telephone encounter Note * Telephone Encounter - Anika Davenport LPN - 07/27/2024 4:03 PM EST Patient called stating that she saw her ultrasound results on Mychart and would like provider to review. [facility]03-06[facility]25 NoteHNO ID: [id number] Author: LUL PURDY MD Service: ? Author Type: Physician Type: Progress Notes Filed: 07/26/2024 22:50 Note Text: The patient presents for requested ultrasound. Full report available in the Imaging tab in [employer]. [facility] History of Present illness Narrative* Lul Purdy MD - 07/26/2024 10:39 PM EST The patient presents for requested ultrasound. Full report available in the Imaging tab in [employer]. Lul Purdy MD documented in this encounterPromed[facility]02-27-2025 NoteHNO ID: [id number] Author: ELSA NEWSOME APRN.CNM Service: ? Author Type: Client Strategist Type: Progress Notes Filed: 07/19/2024 09:13 Note Text: Nikki is a 18 year old who presents for an annual gynecologic exam with complaints, irregular bleeding. Admits to vaginal odor after taking antibiotic for UTI. No urinary complaints at this time. Presents: alone Age at Menarche: 12 Still get period: Yes LMP: 06/11/2024 Menses: cycles irregular per patient, 3-4 days of flow. Will have menses every 1-3 months. It has been this way for over a year after she stopped control. Denies acne, hirsutism or other concerns. No pelvic pain, pain with intercourse, or bleeding with intercourse. Menstrual flow: Moderate Bleeding amount bothersome: No Bleeding between periods: No Period symptoms: Acne, Cramps, and Mood change Sexually active: Yes Contraception: None Contraception frequency: Never HPV vaccine: Yes Last pap smear: never History of abnormal pap: No Colposcopy: No. Leep: No. Cone biopsy: No. Bothersome pelvic pain: No Sexually active: Yes Time with current partner: 3 years, no other sexual partners for her or her partner. 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: Supervisor Nutritional Yeast History Comments: Sexual Activity: Yes; Male Contraception: None PAST MEDICAL HISTORY Diagnosis Date NEGATIVE MEDICAL HISTORY PAST SURGICAL HISTORY Procedure Laterality Date COLONOSCOPY - DIAGNOSTIC 08/2022 stomach issues EGD W/O BRSH SPEC VARICIES INJ 08/2022 FAMILY HISTORY Problem Relation Age of Onset Thyroid Mother SOCIAL HISTORY Social History Tobacco Use Smoking status: Never Smokeless tobacco: Never Vaping Use Vaping status: Never Used Substance Use Topics Alcohol use: Never Drug use: Never REVIEW OF SYSTEMS Abdomen: No bloating, early satiety, indigestion, or increased flatulence. No abdominal pain, nausea, vomiting, diarrhea, or constipation. Bladder: No dysuria, gross hematuria, urinary frequency, urinary urgency, or incontinence. Breast: No breast lumps, nipple d/c, overlying skin changes, redness or skin retraction. Allergies and current medication updated:Yes SENSITIVE EXAM: The sensitive examination was discussed with the Patient or Patient's Authorized Medical Care Manager. As applicable, any other physician, advance practice provider, medical student, or other health professional student that will be observing or involved in the sensitive examination for educational or training purposes was discussed with the Patient or Authorized Medical Care Manager. The Patient or Authorized Medical Care Manager has agreed to proceed with the sensitive examination. (Sensitive examination includes inspection and/or palpation of the breasts, pelvis, prostate and anorectal regions). EXAM: BP 108/66 Ht 5' 3 (1.60m) Wt 174 lb (78.9kg) LMP 06/11/2024 BMI 30.83 kg/(m2). GENERAL: pleasant, in no apparent distress HEENT: Normocephalic, atraumatic, mucus membranes moist, and no lesions NECK: Supple, full range of motion, no adenopathy, and thyroid normal DERMATOLOGY: Normal, without lesions, non-icteric, and non-hirsute BREAST: soft, non-tender, symmetric, no dominant mass, normal nipple-areolar complex, no lymphadenopathy, and no nipple discharge CHEST: Normal inspiratory effort ABDOMEN: soft, non-tender, and no masses PELVIC: external genitalia normal, normal Bartholin's glands, urethra, Burley's glands, no vulvar lesions, no cervical lesions, good vaginal support, physiologic discharge present, normal appearing perineal body and perianal region. Small amount of carr vaginal discharge, no odor. BIMANUAL: uterus normal size, shape and consistency, no adnexal masses, and non-tender NEURO: alert and oriented x3,exam grossly non-focal EXTREMITIES: normal ASSESSMENT/PLAN: 1. Encounter for gynecological examination (general) (routine) with abnormal findings - ICD9: V72.31, ICD10: Z01.411 (primary diagnosis) - Completed pelvic and breast exam - Encouraged monthly BSE - Follow up for annual exam in one year. 2. Screening for STDs (sexually transmitted diseases) - ICD9: V74.5, ICD10: Z11.3 - NIKOLAS/TRICHOMONAS NAAT - GONORRHEA/CHLAMYDIA NAAT 3. Vaginal odor - ICD9: 625.8, ICD10: N89.8 - BACTERIAL VAGINOSIS NAAT - NIKOLAS/TRICHOMONAS NAAT - GONORRHEA/CHLAMYDIA NAAT 4. Secondary oligomenorrhea - ICD9: 626.1, ICD10: N91.4 - THYROID STIMULATING HORMONE - PROLACTIN - TESTOSTERONE, FREE AND TOTAL, BY EQUILIBRIUM ULTRAFILTRATION MASS SPECTROMETRY - DHEA-S BLD - HYDROXYPROGESTERONE-17 - PELVIC US WHI - HEMOGLOBIN A1C -Will follow up after labs and US to discuss manage (more content not included)...[facility]02-27-2025 History of Present illness Narrative* Elsa Newsome APRN.OFEM - 07/19/2024 8:29 AM EST Nikki is a 18 year old who presents for an annual gynecologic exam with complaints, irregular bleeding. Admits to vaginal odor after taking antibiotic for UTI. No urinary complaints at this time. Presents: alone Age at Menarche: 12 Still get period: Yes LMP: 06/11/2024 Menses: cycles irregular per patient, 3-4 days of flow. Will have menses every 1-3 months. It has been this way for over a year after she stopped control. Denies acne, hirsutism or other concerns. No pelvic pain, pain with intercourse, or bleeding with intercourse. Menstrual flow: Moderate Bleeding amount bothersome: No Bleeding between periods: No Period symptoms: Acne, Cramps, and Mood change Sexually active: Yes Contraception: None Contraception frequency: Never HPV vaccine: Yes Last pap smear: never History of abnormal pap: No Colposcopy: No. Leep: No. Cone biopsy: No. Bothersome pelvic pain: No Sexually active: Yes Time with current partner: 3 years, no other sexual partners for her or her partner. 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: Supervisor Nutritional Yeast History Comments: Sexual Activity: Yes; Male Contraception: None PAST MEDICAL HISTORY Diagnosis Date NEGATIVE MEDICAL HISTORY PAST SURGICAL HISTORY Procedure Laterality Date COLONOSCOPY - DIAGNOSTIC 08/2022 stomach issues EGD W/O BRSH SPEC VARICIES INJ 08/2022 FAMILY HISTORY Problem Relation Age of Onset Thyroid Mother SOCIAL HISTORY Social History Tobacco Use Smoking status: Never Smokeless tobacco: Never Vaping Use Vaping status: Never Used Substance Use Topics Alcohol use: Never Drug use: Never REVIEW OF SYSTEMS Abdomen: No bloating, early satiety, indigestion, or increased flatulence. No abdominal pain, nausea, vomiting, diarrhea, or constipation. Bladder: No dysuria, gross hematuria, urinary frequency, urinary urgency, or incontinence. Breast: No breast lumps, nipple d/c, overlying skin changes, redness or skin retraction. Allergies and current medication updated:Yes SENSITIVE EXAM: The sensitive examination was discussed with the Patient or Patient's Authorized Medical Care Manager. As applicable, any other physician, advance practice provider, medical student, or other health professional student that will be observing or involved in the sensitive examination for educational or training purposes was discussed with the Patient or Authorized Medical Care Manager. The Patient or Authorized Medical Care Manager has agreed to proceed with the sensitive examination. (Sensitive examination includes inspection and/or palpation of the breasts, pelvis, prostate and anorectal regions). EXAM: BP 108/66 Ht 5' 3 (1.60m) Wt 174 lb (78.9kg) LMP 06/11/2024 BMI 30.83 kg/(m^2). GENERAL: pleasant, in no apparent distress HEENT: Normocephalic, atraumatic, mucus membranes moist, and no lesions NECK: Supple, full range of motion, no adenopathy, and thyroid normal DERMATOLOGY: Normal, without lesions, non-icteric, and non-hirsute BREAST: soft, non-tender, symmetric, no dominant mass, normal nipple-areolar complex, no lymphadenopathy, and no nipple discharge CHEST: Normal inspiratory effort ABDOMEN: soft, non-tender, and no masses PELVIC: external genitalia normal, normal Bartholin's glands, urethra, Burley's glands, no vulvar lesions, no cervical lesions, good vaginal support, physiologic discharge present, normal appearing perineal body and perianal region. Small amount of carr vaginal discharge, no odor. BIMANUAL: uterus normal size, shape and consistency, no adnexal masses, and non-tender NEURO: alert and oriented x3,exam grossly non-focal EXTREMITIES: normal ASSESSMENT/PLAN: 1. Encounter for gynecological examination (general) (routine) with abnormal findings - ICD9: V72.31, ICD10: Z01.411 (primary diagnosis) - Completed pelvic and breast exam - Encouraged monthly BSE - Follow up for annual exam in one year. 2. Screening for STDs (sexually transmitted diseases) - ICD9: V74.5, ICD10: Z11.3 - NIKOLAS/TRICHOMONAS NAAT - GONORRHEA/CHLAMYDIA NAAT 3. Vaginal odor - ICD9: 625.8, ICD10: N89.8 - BACTERIAL VAGINOSIS NAAT - NIKOLAS/TRICHOMONAS NAAT - GONORRHEA/CHLAMYDIA NAAT 4. Secondary oligomenorrhea - ICD9: 626.1, ICD10: N91.4 - THYROID STIMULATING HORMONE - PROLACTIN - TESTOSTERONE, FREE AND TOTAL, BY EQUILIBRIUM ULTRAFILTRATION MASS SPECTROMETRY - DHEA-S BLD - HYDROXYPROGESTERONE-17 - PELVIC US WHI - HEMOGLOBIN A1C -Will follow up after labs and US to discuss management 1) Health maintenance: Pap starting at the age of 21. Safe sex practices reviewed. Declines control at this time. Nutrition, exercise, and routine health maintenance exams reviewed. HPV vaccine completed series.. 2) Contraception: none. Contraceptive options reviewed and information provided. 3) STD screening: Accepted STD check for Gonorrhea and Chlamydia. Declines blood work 4) Follow up one year or sooner as needed. Elsa Newsome APRN.CNM I spent 20 minutes in the visit, with more than 50% of the total [id number] time of the visit in counseling / coordination of care. documented in this encounterProm[facility]06-20-[facility]23 Miscellaneous Notes* Telephone Encounter - Anika Davenport LPN - 11/09/2022 10:45 AM EDT Patients mother notified * Telephone Encounter - Leatha Hansen APRN.CNP - 11/09/2022 7:16 AM EDT Please let the pt know that her vaginal cultures were negative for infection. She can use the vaginal pH prompt care rn that was discussed at OV. Leatha Hansen APRN.CNP documented in this encounterPromedica [facility]06-19-2023 Instructions* Patient Instructions* Leatha Hansen APRN.CNP - 11/08/2022 12:11 PM EDT Oral Contraceptives: The Pill Beginning the Pill Pills come in either a 21 day pack or a 28 day pack. With the 21 day pack you will take one pill for 21 days then no pill for 7 days, during which time you will have what is known as withdrawal bleeding. The 28 day pack allows you to take a pill every day of the cycle with no interruptions. The first 21 pills are the pills with the active ingredients and the last 7 are the nonmedical pills (placebo) or they may contain iron. There will be bleeding during the week you are taking the nonmedical pills. The advantage to the 28 day pack is that you don t have to keep track of when you stopped the pill. There are a group of 28 day pills that contain 24 active pills and only 4 placebo pills. Theseare formulated to give you a group home supervisor period. Unless otherwise instructed, you should start your pills the Tuesday following your first day of bleeding with your next period (if your period starts on a Tuesday, you should start pills the same day) Read your information packet that comes with the pills. Pill Benefits The pill is the most popular method of reversible control being used today. Millions of womenrely on oral contraceptives as their control method. It is important to have an examination by your physician to determine if the pill is safe for you. There are several advantages associated with the pill: it is 97-98% effective when used correctly; may improve acne; periods are more regularand less painful; there is less iron deficiency anemia in pill users. USP use is associated with a decreased incidence of ovarian and uterine cancer. There is also no evidence that the pill increases the incidence of any cancer. How Oral Contraceptives Work Oral contraceptives come in two varieties. One is the combination pill which contains both estrogenand progesterone. Combination pills are considered 98-99% effective in preventing . This pill comes in either monophasic, which delivers the same amount of estrogen and progesterone throughout the cycle; and triphasic, which try tries to mimic the normal hormone cycle by changing the levels of the hormones in the pills during the month. There is no real advantage to taking the one over the other. The other type of pill only contains progesterone. It is best used for women who can t take estrogen. This type of pill is slightly less effective than the combination pill in preventing preg clarke. It is VERY important to take the progesterone only pill at the same time every day. Oral contraceptives prevent ovulation (release of an egg from the ovary) by suppressing the pituitary gland s action. The pill does NOT prevent sexually transmitted disease. Obtaining a Prescription It is important to see your doctor before starting oral contraceptives so that you can have a full medical history taken and a physical examination given. Certain medical conditions may make the pillinappropriate for you, therefore it is very important to be honest and as complete as possible withthe information you share with your doctor. The types of predisposing factors which would make the pill a poor choice of control would include: History of blood clots Stroke Serious liver disease or impaired liver function Unexplained vaginal bleeding or Cancer of the reproductive system Active gall bladder disease Hypertension Possible Side Effects It can take up to three months for your body to become adjusted to the pill. The more common side effects experienced at this time are: breakthrough spotting or bleeding, which is bleeding at any other time other than when you should be having a period; nausea or vomiting; breast tenderness; and mild fluid retention. There is no correction weight gain with the use of the pill. Breakthrough bleeding is the most common complaint of new pill users. There is no way to predict who will have it and there is no way of preventing it. Breakthrough bleeding usually subsides on its own with no further treatment after the first three months of taking the pill. If these symptoms continue to occur after the first three months you should check with your physician to see if there is any physical cause andpossibly change to another control pill. Problems: Missed 1 pill: Take 2 pills the next day. Missed 2 pills: Take 2 pills the next day and 2 pills the following day. Also use another form of control (condoms) along with the pill for the rest of the month. Missed 3 or more pills: You have two choices. You can take two pills each day until you are on schedule, plus use an additional form of control along with the pill for the rest of the month. Oryou can stop the pill and start a completely new pack of pills the next Tuesday. You must use another form of control with the pill for at least the first two weeks of the new pack. You re ill and you have been vomiting or have diarrhea: You must use another form of control with the pill since the pill may not be fully absorbed during your illness. Continue to use the added control until the end of the cycle. Desire to become : Stop using the pill for one month before trying to become . Taking other medications: The control pill is less effective when you take the antibiotic Rifampin, epilepsy (seizure) drugs such as phenytoin, carbamazepine, phenobarbital, topiramate and somemedications for HIV. Let your doctor know if you start taking any of these medications while on thepill. Symptoms to Notify Your Doctor with Immediately: Pain in your chest or legs Continuous blurred vision Severe headaches Slurred speech Tingling or weakness on one side of your body Shortness of breath Swelling of one leg Refills of Control Pills You need to see a doctor every year for a refill of your prescription. This is necessary in order that your health can be monitored closely while you are taking control pills. If your prescription should before your next scheduled appointment you can usually get a one month extension from your doctors office if you call during regular business hours about one week before you need to start the new package of pills. This allows the physician to refer to your chart for necessary health information. documented in this encounter[facility] History of Present illness Narrative* Leatha Hansen APRN.CNP - 11/08/2022 11:35 AM EDT Subassembly Assembler offered: Patient declines. Nikki Thacker is a 17 year old female who presents for problem visit vaginal odor for 1 week(s). HPI: pt states that she is having a clear to white discharge that has an odor. She states the odor started before her period and is still there since the bleeding stopped. She was also concern that she felt a hard lump in the vagina. She is not sexually active at this time. Periods are monthly but will skip sometimes, flow lasting 4-7 days with cramping. OB History No obstetric history on file. 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 [employer] History LMP: Age at Menarche: Age at First : Age at Menopause: Supervisor [employer] History Comments: Sexual Activity: Never; No partner data on record Contraception: No contraception data on record PAST MEDICAL HISTORY Diagnosis Date NEGATIVE MEDICAL HISTORY PAST SURGICAL HISTORY Procedure Laterality Date COLONOSCOPY - DIAGNOSTIC 08/2022 stomach issues EGD W/O BRSH SPEC VARICIES INJ 08/2022 FAMILY HISTORY Problem Relation Age of Onset Thyroid Mother Social History Tobacco Use Smoking status: Never Smokeless tobacco: Never Vaping Use Vaping Use: Never used Substance Use Topics Alcohol use: Never Drug use: Never No current outpatient medications on file. No current facility-administered medications for this visit. Allergies As of Date: 11/08/2022 Allergen Noted Reaction AMOXICILLIN 04/28/2015 Rash RED DYE 04/28/2015 Hives and Swelling Fully Assessed 11/08/2022 REVIEW OF SYSTEMS Expanded ROS: N/A Allergies and current medication updated:Yes EXAM: There were no vitals taken for this visit. GENERAL: pleasant, female in no apparent distress HEENT: Normocephalic, atraumatic, mucus membranes moist, and no lesions CHEST: Normal inspiratory effort PELVIC: external genitalia normal, normal Bartholin's glands, urethra, Burley's glands, no vulvar lesions, no cervical lesions, good vaginal support, physiologic discharge present, normal appearing perineal body and perianal region BIMANUAL: uterus normal size, shape and consistency, no adnexal masses, and non-tender NEURO: alert and oriented x3,exam grossly non-focal EXTREMITIES: normal ASSESSMENT/PLAN: 1. Vaginal odor - ICD9: 625.8, ICD10: N89.8 (primary diagnosis) - NIKOLAS / TRICHOMONAS AMPLIFICATION - BACTERIAL VAGINOSIS AMPLIFICATION Will notify patient of test results. 2. Encounter for other contraceptive management - ICD9: V25.8, ICD10: Z30.8 Karla ordered Follow up in 3-4 month for med check Leatha Hansen APRN.CNP Medical Decision Making: Problems: Moderate: New problem with uncertain prognosis Data: Unique test(s) ordered: 2 Risk: Low: Low risk from testing/treatment Moderate: Drug management Medical Decision Making Level: 4 - Moderate documented in this encounterProm[facility]04-03-[facility]23 Plan of care note* Plan of Care - Mary Lou Montez RN - 08/23/2022 9:34 AM EDT Problem: Anxiety, Patient/Family Goal: Effective coping Outcome: Ongoing Problem: Falls, Risk of Goal: Absence of falls Outcome: Ongoing Goal: Absence of physical injury Outcome: Ongoing Problem: Adverse Surgical Event, Risk of Goal: Absence of injury Outcome: Ongoing [facility] Miscellaneous Notes* Plan of Care - Mary Lou Montez RN - 08/23/2022 9:34 AM EDT Problem: Anxiety, Patient/Family Goal: Effective coping Outcome: Ongoing Problem: Falls, Risk of Goal: Absence of falls Outcome: Ongoing Goal: Absence of physical injury Outcome: Ongoing Problem: Adverse Surgical Event, Risk of Goal: Absence of injury Outcome: Ongoing * Op Note - Irene Mooney MD - 08/23/2022 9:30 AM EDT Patient NameNIKKI THACKER Date of Birth2005 Record [id number] Date/Time of Procedure08/23/2022 , 9:13:00 AM Referring Physician Jayesh Bonilla PROCEDURE PERFORMED Colonoscopy INDICATIONS FOR EXAMINATION Abdominal pain, generalized [R10.84] R10.84 Generalized abdominal pain INSTRUMENTS CF [id number] PROCEDURE TECHNIQUE A physical exam was performed. Informed consent was obtained from the patient's parents/guardian after explaining all the risks (perforation, bleeding, infection and adverse effects to the medicine),benefits and alternatives to the procedure which the patient's parents appeared to understand and so stated. The patient was connected to the monitoring devices and placed in the supine position. Continuous oxygen was provided and IV medicine administered thru an indwelling cannula. After adequate general anesthesia was achieved, a digital exam was performed and the colonoscope introduced in to the rectum and advanced under direct visualization to the terminal ileum The ascending colon, descending colon, transverse colon and terminal ileum were identified by visual landmarks. The scope was subsequently removed slowly while carefully examining the color, texture,anatomy, and integrity of the mucosa on the way out. In the rectum, the scope was retroflexed to evaluate for internal hemorrhoids and anorectal pathology. The patient was subsequently transferred to the recovery area in satisfactory condition. Bowel Prep Quality: Excellent ESTIMATED BLOOD LOSSNone ML FINDINGS Normal mucosa in the terminal ileum. Biopsy obtained, results pending. Normal mucosa from the rectum to the cecum. Biopsy obtained from right, transverse, left and rectosigmoid colon, results pending. ENDOSCOPIC DIAGNOSIS Normal RECOMMENDATIONS Pending biopsy. * Op Note - Irene Mooney MD - 08/23/2022 9:16 AM EDT Patient NameNIKKI THACKER Date of Birth2005 Record [id number] Date/Time of Procedure08/23/2022 , 9:13:00 AM Referring Physician EndoscopEl Bonilla PROCEDURE PERFORMED EGD INDICATIONS FOR EXAMINATION Abdominal pain, generalized [R10.84] R10.84 Generalized abdominal pain INSTRUMENTS GIF H190 PROCEDURE TECHNIQUE A physical exam was performed. Informed consent was obtained from the patient's parents/guardian after explaining all the risks (perforation, bleeding, infection and adverse effects to the medicine),benefits and alternatives to the procedure which the patient's parents appeared to understand and so stated. The patient was connected to the monitoring devices and placed in the supine position. Continuous oxygen was provided and IV medicine administered through a indwelling cannula. After adequate general anesthesia was achieved, the patient was intubated and the scope advanced under direct visualization to the second part of duodenum The esophagus, stomach and duodenum were identified by visual landmarks. The scope was subsequentlyremoved slowly while carefully examining the color, texture, anatomy, and integrity of the mucosa on the way out. The patient was subsequently transferred to the recovery area in satisfactory condition. ESTIMATED BLOOD LOSSNone ML FINDINGS Normal mucosa in the mid esophagus. Normal mucosa in the distal esophagus. Biopsy obtained, results pending. Normal mucosa from the fundus to the antrum. Biopsy obtained, results pending. Normal mucosa from the first part of duodenum to the second part of duodenum. Biopsy obtained, results pending. ENDOSCOPIC DIAGNOSIS Normal RECOMMENDATIONS Pending biopsy. documented in this encounter[facility]04[facility] Procedure note* Op Note - Irene Mooney MD - 08/23/2022 9:30 AM EDT Patient NameNIKKI THACKER Date of Birth2005 Record [id number] Date/Time of Procedure08/23/2022 , 9:13:00 AM Referring Physician EndoscopEl Bonilla PROCEDURE PERFORMED Colonoscopy INDICATIONS FOR EXAMINATION Abdominal pain, generalized [R10.84] R10.84 Generalized abdominal pain INSTRUMENTS CF [id number] PROCEDURE TECHNIQUE A physical exam was performed. Informed consent was obtained from the patient's parents/guardian after explaining all the risks (perforation, bleeding, infection and adverse effects to the medicine),benefits and alternatives to the procedure which the patient's parents appeared to understand and so stated. The patient was connected to the monitoring devices and placed in the supine position. Continuous oxygen was provided and IV medicine administered thru an indwelling cannula. After adequate general anesthesia was achieved, a digital exam was performed and the colonoscope introduced in to the rectum and advanced under direct visualization to the terminal ileum The ascending colon, descending colon, transverse colon and terminal ileum were identified by visual landmarks. The scope was subsequently removed slowly while carefully examining the color, texture,anatomy, and integrity of the mucosa on the way out. In the rectum, the scope was retroflexed to evaluate for internal hemorrhoids and anorectal pathology. The patient was subsequently transferred to the recovery area in satisfactory condition. Bowel Prep Quality: Excellent ESTIMATED BLOOD LOSSNone ML FINDINGS Normal mucosa in the terminal ileum. Biopsy obtained, results pending. Normal mucosa from the rectum to the cecum. Biopsy obtained from right, transverse, left and rectosigmoid colon, results pending. ENDOSCOPIC DIAGNOSIS Normal RECOMMENDATIONS Pending biopsy. [facility]04[facility]03[facility] Procedure note* Op Note - Irene Mooney MD - 08/23/2022 9:16 AM EDT Patient NameNIKKI THACKER Date of Birth2005 Record [id number] Date/Time of Procedure08/23/2022 , 9:13:00 AM Referring Physician EndoscopEl Bonilla PROCEDURE PERFORMED EGD INDICATIONS FOR EXAMINATION Abdominal pain, generalized [R10.84] R10.84 Generalized abdominal pain INSTRUMENTS GIF H190 PROCEDURE TECHNIQUE A physical exam was performed. Informed consent was obtained from the patient's parents/guardian after explaining all the risks (perforation, bleeding, infection and adverse effects to the medicine),benefits and alternatives to the procedure which the patient's parents appeared to understand and so stated. The patient was connected to the monitoring devices and placed in the supine position. Continuous oxygen was provided and IV medicine administered through a indwelling cannula. After adequate general anesthesia was achieved, the patient was intubated and the scope advanced under direct visualization to the second part of duodenum The esophagus, stomach and duodenum were identified by visual landmarks. The scope was subsequentlyremoved slowly while carefully examining the color, texture, anatomy, and integrity of the mucosa on the way out. The patient was subsequently transferred to the recovery area in satisfactory condition. ESTIMATED BLOOD LOSSNone ML FINDINGS Normal mucosa in the mid esophagus. Normal mucosa in the distal esophagus. Biopsy obtained, results pending. Normal mucosa from the fundus to the antrum. Biopsy obtained, results pending. Normal mucosa from the first part of duodenum to the second part of duodenum. Biopsy obtained, results pending. ENDOSCOPIC DIAGNOSIS Normal RECOMMENDATIONS Pending biopsy. [facility]04[facility] Attending History and physical note* Irene Mooney MD - 08/23/2022 8:52 AM EDT H&P reviewed, patient examined, no changes have occured since H&P completed. Source Note - Mary Ritter APRN-HIGHWAY WORKER - 08/19/2022 10:30 AM EDT PRE-OP CONSULTATION DATE OF SERVICE: 08/19/2022 RELAY MECHANIC PROVIDER: AMBER Altman SURGICAL DIAGNOSIS: generalized abdominal pain Proposed surgery date: 08/23/2022 Proposed surgical procedure: upper endoscopy and colonoscopy with biopsies Advice/opinion was requested by Irene Mooney * for pre-surgical consultation. CHIEF COMPLAINT: abdominal pain HISTORY OF PRESENT ILLNESS: Nkiki Thacker is a 16 y.o. 11 m.o. female who presents today with history of abdominal pain. She has had abdominal pain and on and off constipation for several months. The pain is cramping and is most days. Denies any nausea or vomiting. She has also had a 30 lbs weight loss over the lastyear. The history is provided by the mother and a chart review for evaluation for surgical risk factors. MEDICAL/SURGICAL HISTORY: Past Medical History: Diagnosis Date Attention-deficit hyperactivity disorder Past Surgical History: Procedure Laterality Date NO PAST SURGICAL HISTORY Past hospitalizations: no DRUG/FOOD ALLERGIES: Allergies Allergen Reactions Amoxicillin Rash Other Other (See Comments) Sinus issues with potting soil Red Dye Hives MEDICATIONS: Current Outpatient Medications on File Prior to Visit Medication Sig Dispense Refill dicyclomine (BENTYL) 20 MG Take 1 Tablet (20 mg) by mouth 3 times daily 90 Tablet 3 polyethylene glycol (MIRALAX) powder Take 17 g by mouth 2 times daily. 255 g 0 No current facility-administered medications on file prior to visit. ANESTHESIA HISTORY: Difficulty with anesthesia? No Prior Anesthesia Family history of difficulty with anesthesia? no Signs/symptoms of DENTON? no BLEEDING HISTORY: History of bleeding issues in patient? no Bleeding problems in family? no History of anemia in patient? no Sickle Cell issues in patient or family? N/A REVIEW OF SYSTEMS: Comprehensive review of systems: History obtained from Mother. General ROS: negative Allergy and Immunology ROS: positive for - seasonal allergies Respiratory ROS: no cough, shortness of breath, or wheezing Cardiovascular ROS: no chest pain or dyspnea on exertion Gastrointestinal ROS: positive for - abdominal pain and constipation A complete ROS has been performed. All pertinent positives are noted above or in the HPI. All othersystems were negative. Recent Illnesses? no HISTORY: noncontributory DEVELOPMENTAL HISTORY: Milestones: Not pertinent IMMUNIZATIONS: Stated as up to date, no records available SOCIAL/FAMILY HISTORY: Nikki lives with parents Special Needs: None Preferred Language: Bermudian Daycare: no School: [employer] Smoking/Alcohol/Drug Use or Exposure: None Family History Problem Relation Age of Onset Thyroid Disease Mother Stomach Ulcer(s) Father Gastroesophageal reflux Father Irritable Bowel Syndrome Maternal Grandmother Colon Cancer Maternal Grandmother Cancer Maternal Grandmother Gallbladder Disease Paternal Grandmother Constipation Paternal Grandmother Colon Polyps Paternal Grandfather Anesth Problems Neg Hx Bleeding Problem Neg Hx Blood Disorders Neg Hx Celiac Disease Neg Hx Crohn's Disease Neg Hx Cystic Fibrosis Neg Hx Eosinophilic Esophagitis Neg Hx Kidney Disease Neg Hx Liver Disease Neg Hx Pancreatic Disease Neg Hx Ulcerative Colitis Neg Hx VITAL SIGNS: Vitals: 08/19/22 1021 BP: 107/65 Pulse: 80 Resp: 24 Temp: 36 C (96.8 F) Ht Readings from Last 1 Encounters: 08/19/22 160.5 cm (36 %, Z= -0.37)* * Growth percentiles are based on CDC (Girls, 2-20 Years) data. Wt Readings from Last 1 Encounters: 08/19/22 59 kg (65 %, Z= 0.40)* * Growth percentiles are based on CDC (Girls, 2-20 Years) data. Body mass index is 22.9 kg/m . 71 %ile (Z= 0.57) based on CDC (Girls, 2-20 Years) BMI-for-age based on BMI available as of 08/19/2022. SpO2 Readings from Last 3 Encounters: 08/19/22 100% PHYSICAL EXAM: General: Patient appears healthy, well developed, well nourished, in no acute distress Head: atraumatic and normocephalic Neuro: alert, oriented appropriately for age Eyes: sclera and conjunctiva clear Ears: canals clear, normal, tragus nontender Nose: nares patent without discharge Dentition: intact Throat: oropharynx is poorly visualized, mucous membranes are pink and moist without lesions Neck: there is full range of motion Chest: breath sounds are clear to auscultation bilaterally without rales, rhonchi, or wheezes Cardiac: regular rate and rhythm, normal S1 and S2 Abdomen: soft and tender Back: deferred : deferred Skin: pink, warm, well perfused Lymphatic: not examined Musculoskeletal: normal tone, moves all extremities equally with full range of motion DIAGNOSTIC STUDIES REVIEWED: The following lab results have been ordered/reviewed. None ordered No results found for: CALCIUM, CO2, CL, CREATININE, GLU, K, NA, BUN No results found for: RBC, RDW, WBC, HCT, HGB, MCH, MCHC, MCV, MPV, BASOPCT, EOSPCT, LYMPHOPCT, MONOPCT, NEUTOPHILPCT, CORRECTEDWBC, NEUTROPHIL, NRBC, PLTEST No results found for: HGB No results found for: APTT, INR No results found for: TSH, P8QSKVQ, Q8KEAAM, THYROIDAB No results found for: HCGUR No results found for: HCGSERUM ASSESSMENT: Patient Active Problem List Diagnosis Abdominal pain, generalized Constipation Nikki Thacker is a 16 y.o. 11 m.o. female with generalized abdominal pain, constipation. She presents today for a history and physical for the above mentioned surgical procedure in good condition. PLAN: Surgery as scheduled Patient/family education Instructed to stop ibuprofen, multivitamins and herbal supplements now until after surgery Advised mother to call if her condition changes Vaccines can be given up to 3 days prior to surgery or wait until after. Diet restrictions for DOS reviewed with family Family aware of visitation policy Care coordination: Belen Thacker MD OTHER FINDINGS OR COMMENTS: AMBER Altman 08/19/2022 11:29 AM [facility] Work Phone: [phone] 126-195904-03-2023 History and physical note* Irene Mooney MD - 08/23/2022 8:52 AM EDT H&P reviewed, patient examined, no changes have occured since H&P completed. Source Note - Mary Ritter APRN-CNP - 08/19/2022 10:30 AM EDT PRE-OP CONSULTATION DATE OF SERVICE: 08/19/2022 RELAY MECHANIC PROVIDER: AMBER Altman SURGICAL DIAGNOSIS: generalized abdominal pain Proposed surgery date: 08/23/2022 Proposed surgical procedure: upper endoscopy and colonoscopy with biopsies Advice/opinion was requested by Irene Mooney * for pre-surgical consultation. CHIEF COMPLAINT: abdominal pain HISTORY OF PRESENT ILLNESS: Nikki Thacker is a 16 y.o. 11 m.o. female who presents today with history of abdominal pain. She has had abdominal pain and on and off constipation for several months. The pain is cramping and is most days. Denies any nausea or vomiting. She has also had a 30 lbs weight loss over the lastyear. The history is provided by the mother and a chart review for evaluation for surgical risk factors. MEDICAL/SURGICAL HISTORY: Past Medical History: Diagnosis Date Attention-deficit hyperactivity disorder Past Surgical History: Procedure Laterality Date NO PAST SURGICAL HISTORY Past hospitalizations: no DRUG/FOOD ALLERGIES: Allergies Allergen Reactions Amoxicillin Rash Other Other (See Comments) Sinus issues with potting soil Red Dye Hives MEDICATIONS: Current Outpatient Medications on File Prior to Visit Medication Sig Dispense Refill dicyclomine (BENTYL) 20 MG Take 1 Tablet (20 mg) by mouth 3 times daily 90 Tablet 3 polyethylene glycol (MIRALAX) powder Take 17 g by mouth 2 times daily. 255 g 0 No current facility-administered medications on file prior to visit. ANESTHESIA HISTORY: Difficulty with anesthesia? No Prior Anesthesia Family history of difficulty with anesthesia? no Signs/symptoms of DENTON? no BLEEDING HISTORY: History of bleeding issues in patient? no Bleeding problems in family? no History of anemia in patient? no Sickle Cell issues in patient or family? N/A REVIEW OF SYSTEMS: Comprehensive review of systems: History obtained from Mother. General ROS: negative Allergy and Immunology ROS: positive for - seasonal allergies Respiratory ROS: no cough, shortness of breath, or wheezing Cardiovascular ROS: no chest pain or dyspnea on exertion Gastrointestinal ROS: positive for - abdominal pain and constipation A complete ROS has been performed. All pertinent positives are noted above or in the HPI. All othersystems were negative. Recent Illnesses? no HISTORY: noncontributory DEVELOPMENTAL HISTORY: Milestones: Not pertinent IMMUNIZATIONS: Stated as up to date, no records available SOCIAL/FAMILY HISTORY: Nikki lives with parents Special Needs: None Preferred Language: B[place]ian Daycare: no School: [employer] Smoking/Alcohol/Drug Use or Exposure: None Family History Problem Relation Age of Onset Thyroid Disease Mother Stomach Ulcer(s) Father Gastroesophageal reflux Father Irritable Bowel Syndrome Maternal Grandmother Colon Cancer Maternal Grandmother Cancer Maternal Grandmother Gallbladder Disease Paternal Grandmother Constipation Paternal Grandmother Colon Polyps Paternal Grandfather Anesth Problems Neg Hx Bleeding Problem Neg Hx Blood Disorders Neg Hx Celiac Disease Neg Hx Crohn's Disease Neg Hx Cystic Fibrosis Neg Hx Eosinophilic Esophagitis Neg Hx Kidney Disease Neg Hx Liver Disease Neg Hx Pancreatic Disease Neg Hx Ulcerative Colitis Neg Hx VITAL SIGNS: Vitals: 08/19/22 1021 BP: 107/65 Pulse: 80 Resp: 24 Temp: 36 C (96.8 F) Ht Readings from Last 1 Encounters: 08/19/22 160.5 cm (36 %, Z= -0.37)* * Growth percentiles are based on CDC (Girls, 2-20 Years) data. Wt Readings from Last 1 Encounters: 08/19/22 59 kg (65 %, Z= 0.40)* * Growth percentiles are based on CDC (Girls, 2-20 Years) data. Body mass index is 22.9 kg/m . 71 %ile (Z= 0.57) based on CDC (Girls, 2-20 Years) BMI-for-age based on BMI available as of 08/19/2022. SpO2 Readings from Last 3 Encounters: 08/19/22 100% PHYSICAL EXAM: General: Patient appears healthy, well developed, well nourished, in no acute distress Head: atraumatic and normocephalic Neuro: alert, oriented appropriately for age Eyes: sclera and conjunctiva clear Ears: canals clear, normal, tragus nontender Nose: nares patent without discharge Dentition: intact Throat: oropharynx is poorly visualized, mucous membranes are pink and moist without lesions Neck: there is full range of motion Chest: breath sounds are clear to auscultation bilaterally without rales, rhonchi, or wheezes Cardiac: regular rate and rhythm, normal S1 and S2 Abdomen: soft and tender Back: deferred : deferred Skin: pink, warm, well perfused Lymphatic: not examined Musculoskeletal: normal tone, moves all extremities equally with full range of motion DIAGNOSTIC STUDIES REVIEWED: The following lab results have been ordered/reviewed. None ordered No results found for: CALCIUM, CO2, CL, CREATININE, GLU, K, NA, BUN No results found for: RBC, RDW, WBC, HCT, HGB, MCH, MCHC, MCV, MPV, BASOPCT, EOSPCT, LYMPHOPCT, MONOPCT, NEUTOPHILPCT, CORRECTEDWBC, NEUTROPHIL, NRBC, PLTEST No results found for: HGB No results found for: APTT, INR No results found for: TSH, [id number], H9VYHGI, THYROIDAB No results found for: HCGUR No results found for: HCGSERUM ASSESSMENT: Patient Active Problem List Diagnosis Abdominal pain, generalized Constipation Nikki Thacker is a 16 y.o. 11 m.o. female with generalized abdominal pain, constipation. She presents today for a history and physical for the above mentioned surgical procedure in good condition. PLAN: Surgery as scheduled Patient/family education Instructed to stop ibuprofen, multivitamins and herbal supplements now until after surgery Advised mother to call if her condition changes Vaccines can be given up to 3 days prior to surgery or wait until after. Diet restrictions for DOS reviewed with family Family aware of visitation policy Care coordination: Belen Thacker MD OTHER FINDINGS OR COMMENTS: AMBER Altman 08/19/2022 11:29 AM documented in this encounter[facility] NotePRE-OP CONSULTATION DATE OF SERVICE: 08/19/2022 RELAY MECHANIC PROVIDER: AMBER Altman SURGICAL DIAGNOSIS: generalized abdominal pain Proposed surgery date: 08/23/2022 Proposed surgical procedure: upper endoscopy and colonoscopy with biopsies Advice/opinion was requested by Irene Mooney * for pre-surgical consultation. CHIEF COMPLAINT: abdominal pain HISTORY OF PRESENT ILLNESS: Nikki Thacker is a 16 y.o. 11 m.o. female who presents today with history of abdominal pain. She has had abdominal pain and on and off constipation for several months. The pain is cramping and is most days. Denies any nausea or vomiting. She has also had a 30 lbs weight loss over the last year. The history is provided by the mother and a chart review for evaluation for surgical risk factors. MEDICAL/SURGICAL HISTORY: Past Medical History: Diagnosis Date Attention-deficit hyperactivity disorder Past Surgical History: Procedure Laterality Date NO PAST SURGICAL HISTORY Past hospitalizations: no DRUG/FOOD ALLERGIES: Allergies Allergen Reactions Amoxicillin Rash Other Other (See Comments) Sinus issues with potting soil Red Dye Hives MEDICATIONS: Current Outpatient Medications on File Prior to Visit Medication Sig Dispense Refill dicyclomine (BENTYL) 20 MG Take 1 Tablet (20 mg) by mouth 3 times daily 90 Tablet 3 polyethylene glycol (MIRALAX) powder Take 17 g by mouth 2 times daily. 255 g 0 No current facility-administered medications on file prior to visit. ANESTHESIA HISTORY: Difficulty with anesthesia? No Prior Anesthesia Family history of difficulty with anesthesia? no Signs/symptoms of DENTON? no BLEEDING HISTORY: History of bleeding issues in patient? no Bleeding problems in family? no History of anemia in patient? no Sickle Cell issues in patient or family? N/A REVIEW OF SYSTEMS: Comprehensive review of systems: History obtained from Mother. General ROS: negative Allergy and Immunology ROS: positive for - seasonal allergies Respiratory ROS: no cough, shortness of breath, or wheezing Cardiovascular ROS: no chest pain or dyspnea on exertion Gastrointestinal ROS: positive for - abdominal pain and constipation A complete ROS has been performed. All pertinent positives are noted above or in the HPI. All other systems were negative. Recent Illnesses? no HISTORY: noncontributory DEVELOPMENTAL HISTORY: Milestones: Not pertinent IMMUNIZATIONS: Stated as up to date, no records available SOCIAL/FAMILY HISTORY: Nikki lives with parents Special Needs: None Preferred Language: Bermudian Daycare: no School: 11th Smoking/Alcohol/Drug Use or Exposure: None Family History Problem Relation Age of Onset Thyroid Disease Mother Stomach Ulcer(s) Father Gastroesophageal reflux Father Irritable Bowel Syndrome Maternal Grandmother Colon Cancer Maternal Grandmother Cancer Maternal Grandmother Gallbladder Disease Paternal Grandmother Constipation Paternal Grandmother Colon Polyps Paternal Grandfather Anesth Problems Neg Hx Bleeding Problem Neg Hx Blood Disorders Neg Hx Celiac Disease Neg Hx Crohn's Disease Neg Hx Cystic Fibrosis Neg Hx Eosinophilic Esophagitis Neg Hx Kidney Disease Neg Hx Liver Disease Neg Hx Pancreatic Disease Neg Hx Ulcerative Colitis Neg Hx VITAL SIGNS: Vitals: 08/19/22 1021 BP: 107/65 Pulse: 80 Resp: 24 Temp: 36 C (96.8 F) Ht Readings from Last 1 Encounters: 08/19/22 160.5 cm (36 %, Z= -0.37)* * Growth percentiles are based on CDC (Girls, 2-20 Years) data. Wt Readings from Last 1 Encounters: 08/19/22 59 kg (65 %, Z= 0.40)* * Growth percentiles are based on [facility][NOTE 3] (Girls, 2-20 Years) data. Body mass index is 22.9 kg/m . 71 %ile (Z= 0.57) based on CDC (Girls, 2-20 Years) BMI-for-age based on BMI available as of 08/19/2022. SpO2 Readings from Last 3 Encounters: 08/19/22 100% PHYSICAL EXAM: General: Patient appears healthy, well developed, well nourished, in no acute distress Head: atraumatic and normocephalic Neuro: alert, oriented appropriately for age Eyes: sclera and conjunctiva clear Ears: canals clear, normal, tragus nontender Nose: nares patent without discharge Dentition: intact Throat: oropharynx is poorly visualized, mucous membranes are pink and moist without lesions Neck: there is full range of motion Chest: breath sounds are clear to auscultation bilaterally without rales, rhonchi, or wheezes Cardiac: regular rate and rhythm, normal S1 and S2 Abdomen: soft and tender Back: deferred : deferred Skin: pink, warm, well perfused Lymphatic: not examined Musculoskeletal: normal tone, moves all extremities equally with full range of motion DIAGNOSTIC STUDIES REVIEWED: The following lab results have been ordered/reviewed. None ordered No results found for: CALCIUM, CO2, CL, CREATININE, GLU, K, NA, BUN No results found for: RBC, RDW, WBC, HCT, HGB, MCH, M (more content not included)...[facility] noteNo assessment information availableWAC[facility] Work Phone: Evaluation note* Diagnosis Abdominal pain, unspecified abdominal location documented in this encounter [facility] note* Diagnosis Abdominal pain, unspecified abdominal location documented in this encounter [facility] note* Diagnosis Abdominal pain, generalized- Primary Pre-operative examination Preoperative examination, unspecified documented in this encounter [facility] note* Diagnosis Vaginal odor- Primary Unspecified symptom associated with female genital organs Encounter for other contraceptive management [facility] Diagnosis Encounter for gynecological examination (general) (routine) with abnormal findings- Primary Screening for STDs (sexually transmitted diseases) Screening examination for venereal disease Vaginal odor Unspecified symptom associated with female genital organs Secondary oligomenorrhea Scanty or infrequent menstruation [facility] Diagnosis Secondary oligomenorrhea- Primary Scanty or infrequent menstruation Ovarian cyst, right Other and unspecified ovarian cyst Adnexal cyst Other specified symptom associated with female genital organs documented in this encounter [facility] note* Diagnosis PCOS (polycystic ovarian syndrome)- Primary Polycystic ovaries Class 1 obesity without serious comorbidity with body mass index (BMI) of 30.0 to 30.9 in adult, unspecified obesity type Ovarian cyst, right Other and unspecified ovarian cyst Adnexal cyst Other specified symptom associated with female genital organs Secondary oligomenorrhea Scanty or infrequent menstruation Elevated testosterone level Vaginal odor Unspecified symptom associated with female genital organs * Assessment & Plan Note - Elsa Newsome APRN.CNM - 07/31/2024 1:03 PM EDT Associated Problem(s): Ovarian cyst, right -Follow up US in 6 months * Assessment & Plan Note - Elsa Newsome APRN.CNM - 07/31/2024 1:03 PM EDT Associated Problem(s): Adnexal cyst -Follow up US in 6 months documented in this encounter [facility] note* Diagnosis Ovarian cyst, right- Primary Other and unspecified ovarian cyst PCOS (polycystic ovarian syndrome)- Primary Polycystic ovaries Class 1 obesity without serious comorbidity with body mass index (BMI) of 30.0 to 30.9 in adult, unspecified obesity type Ovarian cyst, right Other and unspecified ovarian cyst Adnexal cyst Other specified symptom associated with female genital organs Secondary oligomenorrhea Scanty or infrequent menstruation Elevated testosterone level Vaginal odor Unspecified symptom associated with female genital organs documented in this encounter [facility] note* Diagnosis PCOS (polycystic ovarian syndrome)- Primary Polycystic ovaries Class 1 obesity without serious comorbidity with body mass index (BMI) of 30.0 to 30.9 in adult, unspecified obesity type Ovarian cyst, right Other and unspecified ovarian cyst Adnexal cyst Other specified symptom associated with female genital organs Secondary oligomenorrhea Scanty or infrequent menstruation Elevated testosterone level Vaginal odor Unspecified symptom associated with female genital organs PCOS (polycystic ovarian syndrome)- Primary Polycystic ovaries Vaginal discharge Leukorrhea, not specified as infective Elevated testosterone level Nausea Nausea alone Dizziness and giddiness [facility] Diagnosis PCOS (polycystic ovarian syndrome)- Primary Polycystic ovaries Class 1 obesity without serious comorbidity with body mass index (BMI) of 30.0 to 30.9 in adult, unspecified obesity type Ovarian cyst, right Other and unspecified ovarian cyst Adnexal cyst Other specified symptom associated with female genital organs Secondary oligomenorrhea Scanty or infrequent menstruation Elevated testosterone level Vaginal odor Unspecified symptom associated with female genital organs Ovarian cyst, right- Primary Other and unspecified ovarian cyst Paratubal cyst Other noninflammatory disorder of ovary, fallopian tube, and broad ligament [facility] Additional Instructions Thank you for trusting us with your care today! Please take Tylenol (2 pills, 650 mg), ibuprofen (2 pills, 400 mg) every 6 hours as needed for pain and fever control. Please take Zofran as needed for nausea. In terms of constipation I recommend you begin eating a high-fiber diet. You go to a local grocery store and obtain fiber 1 cereal and eat this daily to increase your fiber intake. Please continue take antibiotic as prescribed. Please follow-up with your urine culture results to determine if need to change antibiotics. Please return to the emergency department if your symptoms change or worsen. Please follow with your primary care physician for further outpatient evaluation and management.[facility] Work Phone: Reason for referral (narrative)No reason for referral information availableWACMC [facility] Work Phone: Reason for visit Narrative* Diagnostic Procedure Only (Routine) - Closed Specialty Diagnoses / Procedures Referred By Tamara roberson Referred To Contact [facility] Diagnoses Secondary oligomenorrhea Procedures PELVIC US WHI US PELVIC NONOBSTETRIC REAL-TIME IMAGE COMPLETE Elsa Newsome APRN.CALEB [address] [place] [address] Phone: tel: fax: [facility] [address] [place] [address] Referral ID Status Reason Start Date Expiration Date V isits Requested Visits Authorized [id number] Closed Auto-Generate d Referral 07/19/2024 07/19/2025 1 1 [facility] N[facility]* Diagnostic Procedure Only (Routine) - Closed Specialty Diagnoses / Procedures Referred By Tamara t Referred To Contact [facility] Diagnoses Ovarian cyst, right Procedures PELVIC US WHI US PELVIC NONOBSTETRIC REAL-TIME IMAGE COMPLETE Elsa Newsome, CAD DESIGNER.CNM [address] [place] [address] Phone: tel: fax: [address] [address] Referral ID Status Reason Start Date Expiration Date V isits Requested Visits Authorized [id number] Closed Auto-Generate d Referral 07/27/2024 07/27/2025 1 1 [facility] Chief Complaint and Reason for Visit Chief Complaint ABDOMINAL PAIN Chief Complaint ABD PAIN Chief Complaint ABD PAIN LAB AND ABD XRAY ABDOMINAL PAIN/E ORDERS Chief Complaint ABD PAIN LAB AND ABD XRAY ABDOMINAL PAIN/E ORDERS LABSPEC- STOOL Chief Complaint sore throat Localized swelling, mass and lump, neck Chief Complaint sore throat Localized swelling, mass and lump, neck LEFT FLANK PAIN Chief Complaint Admit Date ABN BLOOD FINDINGS BLOOD CHEMISTRY September 202024 11:14am LIVER TUMOR-ELEVATED LIVER LEVELS-MAKING HER SICK November 06, 2024 10:36am Reason for Visit Admit Date Abdominal pain November 06, 2024 10:3 6am Constipation November 06, 2024 10:3 6am Nausea November 06, 2024 10:3 6am Transaminitis November 06, 2024 10:3 6am Vomiting November 06, 2024 10:3 6am Chief Complaint Admit Date ABN BLOOD FINDINGS BLOOD CHEMISTRY September 202024 11:14am LIVER TUMOR-ELEVATED LIVER LEVELS-MAKING HER SICK November 06, 2024 10:36am 10 day FU November 28, 2024 9:30a m Reason for Visit Admit Date Abdominal pain November 06, 2024 10:3 6am Constipation November 06, 2024 10:3 6am Nausea November 06, 2024 10:3 6am Transaminitis November 06, 2024 10:3 6am Vomiting November 06, 2024 10:3 6am Abdominal pain November 28, 2024 9:30a m Nausea November 28, 2024 9:30a m Vomiting November 28, 2024 9:30a m Chief Complaint Admit Date ABN BLOOD FINDINGS BLOOD CHEMISTRY September 202024 11:14am LIVER TUMOR-ELEVATED LIVER LEVELS-MAKING HER SICK November 06, 2024 10:36am 10 day FU November 28, 2024 9:30a m LIVER LESION November 28, 2024 10:44 am Reason for Visit Admit Date Abdominal pain November 06, 2024 10:3 6am Constipation November 06, 2024 10:3 6am Nausea November 06, 2024 10:3 6am Transaminitis November 06, 2024 10:3 6am Vomiting November 06, 2024 10:3 6am Abdominal pain November 28, 2024 9:30a m Constipation November 28, 2024 9:30a m Liver lesion November 28, 2024 9:30a m Nausea November 28, 2024 9:30a m PCOS (polycystic ovarian syndrome) November 28, 2024 9:30am Transaminitis November 28, 2024 9:30a m Chief Complaint Admit Date ABN BLOOD FINDINGS BLOOD CHEMISTRY September 202024 11:14am LIVER TUMOR-ELEVATED LIVER LEVELS-MAKING HER SICK November 06, 2024 10:36am 10 day FU November 28, 2024 9:30a m LIVER LESION November 28, 2024 10:44 am Generalized abdominal pain December 12 10:25am Chief Complaint Admit Date ABN BLOOD FINDINGS BLOOD CHEMISTRY September 202024 11:14am LIVER TUMOR-ELEVATED LIVER LEVELS-MAKING HER SICK November 06, 2024 10:36am 10 day FU November 28, 2024 9:30a m LIVER LESION November 28, 2024 10:44 am Generalized abdominal pain December 12 10:25am ABNORMAL HIDA December 20, 2024 9:55 am Chief Complaint Admit Date ABN BLOOD FINDINGS BLOOD CHEMISTRY September 202024 11:14am LIVER TUMOR-ELEVATED LIVER LEVELS-MAKING HER SICK November 06, 2024 10:36am 10 day FU November 28, 2024 9:30a m LIVER LESION November 28, 2024 10:44 am Generalized abdominal pain December 12 10:25am ABNORMAL HIDA December 20, 2024 9:55 am 1 week followup January 03, 2025 1: 55pm Reason for Visit Admit Date Abdominal pain November 06, 2024 10:3 6am Constipation November 06, 2024 10:3 6am Nausea November 06, 2024 10:3 6am Transaminitis November 06, 2024 10:3 6am Vomiting November 06, 2024 10:3 6am Abdominal pain November 28, 2024 9:30a m Constipation November 28, 2024 9:30a m Liver lesion November 28, 2024 9:30a m Nausea November 28, 2024 9:30a m PCOS (polycystic ovarian syndrome) November 28, 2024 9:30am Transaminitis November 28, 2024 9:30a m Abnormal biliary HIDA scan December 20 9:55am Lower abdominal pain December 20, 2024 9:5 5am LUQ pain December 20, 2024 9:55 am N&V (nausea and vomiting) December 20 9:55am PCOS (polycystic ovarian syndrome) December 20, 2024 9:55am Advance Directives No Advanced Directives Records Found Advance Directive Response Recorded Date/ Time Living Will No January 24, 014 1:18am Power of Rheumatology Nurse No January 24, 2014 1:18am Advance Directive Response Recorded Date/ Time Living Will No January 24, 014 12:18am Power of Rheumatology Nurse No January 24, 2014 12:18am Summary Purpose Family History No Family History Records Found Relationship Condition Age at Onset Recorded Date/T nora grandmother Malignant neoplasm of colon Unknown Irritable bowel syndrome Unknown Additional Source Comments Goals (unrecognized section and content) Goals may be documented in a n alternate sectionGoals may be documented in an alternate sectionGoals may be documented in an alternate sectionGoals may be documented in an alternate sectionGoals may be documented in an alternate sectionGoals may be documented in an alternate sectionGoals may be documented in an alternate sectionGoals may be documented in an alternate sectionGoals may be documented in an alternate sectionGoals may be documented in an alternate sectionGoals may be documented in an alternate sectionGoals may be documented in an alternate sectionGoals may be documented in an alternate sectionGoals may be documented in an alternate sectionGoals may be documented in an alternate sectionGoals may be documented in an alternate section Care Teams (unrecognized sec tion and content) Team Status: Active Member Role Status Dates Dr. Belen Nevarez MD Family Provider Active Denisse Anthony DO Primary Care Provider Active Team Status: Inactive Member Role Status Dates Dr. Slick Toro MD Primary Care Provider Activ e Dr. Hortencia Dumont MD Attending Provider Active Team Status: Inactive Member Role Status Dates Denisse Anthony DO Primary Care Provider Active Dr. Jeison Peralta MD Attending Provider, Referring Prov ider Active Team Status: Active Member Role Status Dates Denisse Anthony DO Primary Care Provider Active Dr. Jeison Peralta MD Attending Provider, Referring Prov ider Active Ent Surgeon Relationship Specialty Start Date End Date Belen Thacker MD [address] [facility] [address] [place] [address] PCP - General 01/04/13 Ent Surgeon Relationship Specialty Start Date End Date Belen Thacker MD [address] [facility] [address] [place] [address] PCP - General 01/04/13 Ent Surgeon Relationship Specialty Start Date End Date Belen Thacker MD [address] [facility] [address] [place] [address] PCP - General 01/04/13 Team Status: Inactive Member Role Status Dates Denisse Anthony DO Primary Care Provider Active MARC AUSTIN Attending Provider, Referring Provider Ac tive Team Status: Inactive Member Role Status Dates Denisse Anthony DO Primary Care Provi venkata, Attending Provider, Referring Provider Active Team Status: Inactive Member Role Status Dates Denisse Anthony DO Primary Care Provider Active Dr. Alvaro Raines MD Attending Provider, Emergency Provider Active Team Status: Inactive Member Role Status Dates Denisse Anthony DO Primary Care Provider Active Dr. Jose Cruz Bonilla , DO Emergency Provider Active Team Status: Active Member Role Status Dates Dr. Belen Nevarez MD Family Provider Active Ana Leija MD Primary Care Provider Active Team Status: Inactive Member Role Status Dates Denisse Anthony DO Primary Care Provider Active Dr. Jose Cruz Bonilla DO Attending Provider, Yeimi cisneros Active Team Status: Inactive Member Role Status Lubna Leija MD Primary Care Provide r, Attending Provider, Referring Provider Active Team Status: Active Member Role Status Lubna Leija MD Primary Care Provider Active Team Status: Inactive Member Role Status Lubna Leija MD Primary Care Provider Active St art: September 28, 2024 End: September 28, 2024 Ana Leija MD Referring Provider Active Start : September 28, 2024 End: September 28, 2024 Aaron Lomas NP RELAY MECHANIC-C Attending Provider Active Start: September 28, 2024 End: September 28, 2024 Team Status: Inactive Member Role Status Lubna Leija MD Primary Care Provider Active St art: October 04, 2024 End: October 04, 2024 Aaron Lomas NP RELAY MECHANIC-C Attending Provider Active Start: October 04, 2024 End: October 04, 2024 Aaron Lomas NP RELAY MECHANIC-C Referring Provider Active Start: October 04, 2024 End: October 04, 2024 Team Status: Inactive Member Role Status Lubna Leija MD Primary Care Provider Active St art: November 06, 2024 End: November 06, 2024 Ana Leija MD Referring Provider Active Start : November 06, 2024 End: November 06, 2024 ASHANTI Jimenez Attending Provider Active Start: November 06, 2024 End: November 06, 2024 Team Status: Inactive Member Role Status Lubna Leija MD Primary Care Provider Active St art: November 06, 2024 End: November 06, 2024 ASHANTI Jimenez Attending Provider Active Start: November 06, 2024 End: November 06, 2024 ASHANTI Jimenez Referring Provider Active Start: November 06, 2024 End: November 06, 2024 Team Status: Active Member Role/Relationship Status Lubna Leija MD Primary Care Provider Active Team Status: Inactive Member Role/Relationship Status Lubna Leija MD Primary Care Provider Active St art: September 28, 2024 End: September 28, 2024 Ana Leija MD Referring Provider Active Start : September 28, 2024 End: September 28, 2024 Aaron Lomas NP RELAY MECHANIC-C Attending Provider Active Start: September 28, 2024 End: September 28, 2024 Team Status: Inactive Member Role/Relationship Status Lubna Leija MD Primary Care Provider Active St art: October 04, 2024 End: October 04, 2024 Aaron Lomas RELAY MECHANIC, RELAY MECHANIC-C Attending Provider Active Start: October 04, 2024 End: October 04, 2024 Aaron Lomas RELAY MECHANIC, RELAY MECHANIC-C Referring Provider Active Start: October 04, 2024 End: October 04, 2024 Team Status: Inactive Member Role/Relationship Status Lubna Leija MD Primary Care Provider Active St art: November 06, 2024 End: November 06, 2024 Ana Leija MD Referring Provider Active Start : November 06, 2024 End: November 06, 2024 CASTRO JimenezC Attending Provider Active Start: November 06, 2024 End: November 06, 2024 Team Status: Inactive Member Role/Relationship Status Lubna Leija MD Primary Care Provider Active St art: November 06, 2024 End: November 06, 2024 CASTRO JimenezC Attending Provider Active Start: November 06, 2024 End: November 06, 2024 CASTRO JimenezC Referring Provider Active Start: November 06, 2024 End: November 06, 2024 Team Status: Inactive Member Role/Relationship Status Lubna Leija MD Primary Care Provider Active St art: November 28, 2024 End: November 28, 2024 Ana Leija MD Referring Provider Active Start : November 28, 2024 End: November 28, 2024 ASHANTI Jimenez Attending Provider Active Start: November 28, 2024 End: November 28, 2024 Team Status: Inactive Member Role/Relationship Status Lubna Leija MD Primary Care Provider Active St art: November 28, 2024 End: November 28, 2024 CASTRO JimenezC Attending Provider Active Start: November 28, 2024 End: November 28, 2024 ASHANTI Jimenez Referring Provider Active Start: November 28, 2024 End: November 28, 2024 Team Status: Inactive Member Role/Relationship Status Lubna Leija MD Primary Care Provider Active St art: December 12, 2024 End: December 12, 2024 ASHANTI Jimenez Attending Provider Active Start: December 12, 2024 End: December 12, 2024 ASHANTI Jimenez Referring Provider Active Start: December 12, 2024 End: December 12, 2024 Team Status: Inactive Member Role/Relationship Status Lubna Leija MD Primary Care Provider Active St art: December 20, 2024 End: December 20, 2024 Dr. Lor Bell MD Attending Provider Active Start: December 20, 2024 End: December 20, 2024 DALE aMckey Referring Provider Active Start: December 20, 2024 End: December 20, 2024 Team Status: Inactive Member Role/Relationship Status Lubna Leija MD Primary Care Provider Active St art: January 03, 2025 End: January 03, 2025 Ana Leija MD Referring Provider Active Start : January 03, 2025 End: January 03, 2025 Dr. Lor Bell MD Attending Provider Active Start: January 03, 2025 End: January 03, 2025 Reason for Visit (unrecogniz ed section and content) Specialty Diagnoses / Procedures Referred By Tamara t Referred To Contact Diagnoses Abdominal pain, generalized Abdominal pain, generalized [R10.84] Procedures OR EGD TRANSORAL BIOPSY SINGLE/MULTIPLE OR COLONOSCOPY W/BIOPSY SINGLE/MULTIPLE ENDOSCOPY (UPPER AND COLONOSCOPY) [place] [address] Referral ID Status Reason Start Date Expiration Date Visits Re quested Visits Authorized [id number] 1 Reason Comments Vaginal Problem Vaginal discharge- w jt in color with odor Reason Comments Results Reason Comments Well Woman Reason Comments Follow Up Pelvic US on 07/26/24 Reason Comments Patient Question CPT and DX codes Reason Comments Patient Question Reason Comments Follow Up Scheduled Active and Recently Administ ered Medications (unrecognized section and content) Medication Order 08/21/2022 08/22/2022 08/23/2022 acetaminophen (TYLENOL) 325 MG tablet 650 mg 650 mg (11 mg/kg/DOSE), Oral, ONCE, 1 dose, On Tue08/23/22 at 0830, Pre-op 0804 (Not Given - Pr ovider: Melinda Tomlinson RN - Reason: See Comments - Comment: d/t procedure) lidocaine (LMX) 4 % kit (COMPLETED) Topical, ONCE, 1 dose, On Tue08/23/22 at 0900, Pre-op 0843 (Given - Provid er: Melinda Tomlinson RN - Comment: dewey hands) Continuous Medication Order 08/21/2022 08/22/2022 08/23/2022 Lactated Ringers IV (CANCELED) CONTINUOUS, Intravenous, at 100 mL/hr, Starting on Tue08/23/22 at 1000, For 90 days, PACU 0935 (Restarted from Bag - Provider: Abena London RN)1012 (Stopped - Provider: Laura Patton, ROMANA) PRN Medication Order 08/21/2022 08/22/2022 08/23/2022 Oxygen (CANCELED) See Flowsheet Row, PRN, Starting on Tue08/23/22 at 0935, Until Tue08/23/22 at 1031, Keep sats greater or equal to 95% 0931 (Gas Start - Pr ovider: Abena London RN)0950 (Gas Stop - Provider: Laura Patton, ROMANA) INFORMATION SOURCE (unrecogn ized section and content) DATE CREATED AUTHOR 09/03/2022 [facility] DATE CREATED AUTHOR AUTHOR'S ORGANIZ ATION 02/13/2025 [facility] DATE CREATED AUTHOR AUTHOR'S ORGANIZ ATION 02/13/2025 [facility] Source Comments (unrecognize d section and content) In the event this informatio n is protected by the Federal Confidentiality of Alcohol and Drug Abuse Patient Records regulations: The Federal rules restrict any use of the information to criminally investigate or prosecute any alcohol or drug abuse patient.[facility] the event this information is protected by the Federal Confidentiality of Alcohol and Drug Abuse Patient Records regulations: The Federal rules restrict any use of the information to criminally investigate or prosecute any alcohol or drug abuse patient.[facility] the event this information is protected by the Federal Confidentiality of Alcohol and Drug Abuse Patient Records regulations: The Federal rules restrict any use of the information to criminally investigate or prosecute any alcohol or drug abuse patient.[facility] the event this information is protected by the Federal Confidentiality of Alcohol and Drug Abuse Patient Records regulations: The Federal rules restrict any use of the information to criminally investigate or prosecute any alcohol or drug abuse patient.[facility] the event this information is protected by the Federal Confidentiality of Alcohol and Drug Abuse Patient Records regulations: The Federal rules restrict any use of the information to criminally investigate or prosecute any alcohol or drug abuse patient.[facility] the event this information is protected by the Federal Confidentiality of Alcohol and Drug Abuse Patient Records regulations: The Federal rules restrict any use of the information to criminally investigate or prosecute any alcohol or drug abuse patient.[facility] the event this information is protected by the Federal Confidentiality of Alcohol and Drug Abuse Patient Records regulations: The Federal rules restrict any use of the information to criminally investigate or prosecute any alcohol or drug abuse patient.[facility] the event this information is protected by the Federal Confidentiality of Alcohol and Drug Abuse Patient Records regulations: The Federal rules restrict any use of the information to criminally investigate or prosecute any alcohol or drug abuse patient.[facility] the event this information is protected by the Federal Confidentiality of Alcohol and Drug Abuse Patient Records regulations: The Federal rules restrict any use of the information to criminally investigate or prosecute any alcohol or drug abuse patient.[facility] the event this information is protected by the Federal Confidentiality of Alcohol and Drug Abuse Patient Records regulations: The Federal rules restrict any use of the information to criminally investigate or prosecute any alcohol or drug abuse patient.[facility] the event this information is protected by the Federal Confidentiality of Alcohol and Drug Abuse Patient Records regulations: The Federal rules restrict any use of the information to criminally investigate or prosecute any alcohol or drug abuse patient.[facility] FOR RECORDS PERTAINING TO PATIENTS WHO ARE OR HAVE BEEN ENROLLED IN A CHEMICAL DEPENDENCY/SUBSTANCEABUSE PROGRAM, SOME INFORMATION MAY BE OMITTED. This clinical summary was aggregated from multiple sources. Caution should be exercised in using it in the provision of clinical care. This summary normalizes information from multiple sources, and as a consequence, information in this document may materially change the coding, format and clinical context of patient data. In addition, data may be omitted in some cases. CLINICAL DECISIONS SHOULD BE BASED ON THE PRIMARY CLINICAL RECORDS. [facility] [employer] [facility]. provides no warranty or guarantee of the accuracy or completeness of information in this document.
--- NOTE | 2025-02-14 06:34 | EKG12_ITS ---
Test Reason : PREOP Blood Pressure : */* mmHG Vent. Rate : 69 BPM Atrial Rate : 69 BPM P-R Int : 150 ms QRS Dur : 88 ms QT Int : 380 ms P-R-T Axes : 70 80 41 degrees QTcB Int : 407 ms Normal sinus rhythm Normal ECG No previous ECGs available Confirmed by YOSELIN ALEXANDER, ALYSSA ([id number]), editor greeting card MORA SILVERIO ([id number]) on 02/15/2025 1:12:26 PM Referred By: Lor Bell Confirmed By: ALYSSA WYATT MD
[2025-02-14] MEDS: INDOCYANINE GREEN 3.75 MG in Syringe 1.5 ML 999 MG IV (06:37)
[2025-02-14] MEDS: Lactated Ringers 1,000 ML 15 ML IV (06:37)
[2025-02-14 06:44] LABS: Internal QC Validated? YES +Cl - CLEAR BKGD; Pregnancy, Urine Negative Negative; Record Kit Lot#,Urine Preg 0000964736
[2025-02-14] MEDS: Bupiv/Epi 0.25% 30 ML Vial (06:52)
--- NOTE | 2025-02-14 07:19 | PCM.PRE.AN2 ---
ASA Classification* ASA Classification ASA Classification: 2 Assessment & Plan Anesthesia* Anesthesia Assessment Anesthesia Assessment: Discussed sedation and/or anesthesia options, risks, benefits, and alternatives with patient/parents/legal guardian/POA. Questions invited. The patient/parents/legal guardian/POA seems to understand and agrees to proceed with anesthesia plan. Reviewed the physical assessment, medical history, allergy history and patient home medications list prior to surgery/procedure/anesthetic and documented any changes. Performed airway and anesthesia risk assessments. Anesthesia Type Anesthesia Type: General History Source History Obtained from:: Patient and Chart Anesthesia Focused Assessment* Temperature: 98.2 F Pulse Rate: 69 Blood Pressure: 110/64 Respiratory Rate: 18 Pulse Ox: 99 Oxygen Delivery Method: Room Air Airway Assessment Mouth opens: >3 cm Mallampati Score: I Teeth Condition: Intact Neck Range of motion (ROM): Full ROM Labs Anesthesia Preop lab: CBC WBC, (4.4-11.0) 5.4 K/mm3 02/13/25, 09:57 RBC, (4.2-5.4) 4.67 M/mm3 02/13/25, 09:57 Hgb, (12.0-15.0) 13.4 g/dL 02/13/25, 09:57 Hct, (37-47) 40.6 % 02/13/25, 09:57 Plt Count, (150-450) 236 K/mm3 02/13/25, 09:57 CHEMISTRY Potassium, (3.3-5.1) 4.2 mmol/L 11/06/24, 12:04 Sodium, (133-145) 139 mmol/L 11/06/24, 12:04 BUN, (4-19) 11 mg/dL 11/06/24, 12:04 Creatinine, (0.70-1.20) 0.66 mg/dL L 11/06/24, 12:04 Glucose, (70-99) 79 mg/dL 11/06/24, 12:04 TSH, (0.500-4.300) 0.953 uIU/mL 09/28/24, 16:11 COAG PT, (11.7-14.9) 13.5 SECONDS 02/13/25, 09:57 Urine Test Negative Negative Today, 06:30 Pre-Assessment Diagnosis/Proposed Procedure Planned Operative Procedure(s): ROBOTIC CHOLEY WITH GRAMS Anesthesia History Anesthesia History - photographic developer and printer: Anesthesia History - photographic developer and printer Hx Hospitalization No 01/31/25 10:55 Any Problems With Anesthesia No 01/31/25 10:55 Cholinesterase deficiency No 01/31/25 10:55 You/Your Family Experience No 01/31/25 10:55 fever (hyperthermia) with Relationship Recent Exposure to Contagious No 02/14/25 06:33 Disease Does patient have nerve No 01/31/25 10:55 stimulator Patient instructed to have device shut off --Does patient have Pacemaker No 02/14/25 06:33 or ICD? When Was Last Pacemaker Check QUESTION #4 FULL TEXT: You/Your Family Experience fever (hyperthermia) with Anesthesia Last Oral Intake Last Oral intake: Last Oral Intake NPO since 00:00 02/14/25 06:33 Meds taken in AM with sips of water? Meds patient instructed to take am of surgery PONV PONV - photographic developer and printer: PONV - photographic developer and printer Female Yes 01/31/25 10:55 HX of Motion Sickness No 01/31/25 10:55 HX of N/V After Surgery No 01/31/25 10:55 Non-Smoker Yes 01/31/25 10:55 Duration of Surgery greater No 01/31/25 10:55 than 60 minutes Number of Risk Factors 2 01/31/25 10:55 PONV Score Moderate Risk 01/31/25 10:55 Height & Weight Height & Weight: Anesthesia: Height & Weight Height 5 ft 4 in 02/14/25 06:33 Weight: 74.2 kg 02/14/25 06:33 Body Mass Index (BMI) 28.0 02/14/25 06:33 Respiratory Assessment Respiratory Assessment - photographic developer and printer: Respiratory Tract Infection Hx - photographic developer and printer Hx Respiratory Tract Infection Yes: RHINOVIRUS CURRENTLY 01/31/25 10:55 Any additional information?: Yes Hx Respiratory Tract Infection: Yes History of Anesthesia Respiratory Infection details: Patient has strep throat in the past 2 weeks. Patient has completed a course of antibiotics. STOP Sleep Apnea STOP Sleep Apnea - photographic developer and printer: STOP Sleep Apnea - photographic developer and printer Hx Hypertension No 01/31/25 10:55 Hx Sleep Apnea No 01/31/25 10:55 CPAP BIPAP Do you snore loudly (louder Yes 01/31/25 10:55 than talking or can be heard Do you often feel tired/ Yes 01/31/25 10:55 fatigued/ sleepy during daytime? Has anyone observed you stop No 01/31/25 10:55 breathing during sleep? STOP Results Positive 01/31/25 10:55 QUESTION #5 FULL TEXT : Do you snore loudly (louder than talking or can be heard through closed doors)? Tobacco Use History Tobacco Use History - photographic developer and printer: Tobacco Use History - photographic developer and printer Tobacco Use Smoking Status Never smoker 01/31/25 10:55 Hx Tobacco Use No 01/31/25 10:55 Years Smoking Packs Smoked per Day Smoking Cessation Date was within the last 15 years Hx Smoking Cessation Date Hx Smoking Cessation Counseling Hematologic Medial History Hematologic Hx - photographic developer and printer: Hematologic Medical Hx - water technician Hx of Blood Transfusion No 01/31/25 10:55 Hx of Transfusion in last 3 No 01/31/25 10:55 Months Date of Last Transfusion (if within last 3 months) Ever experience any problems No 01/31/25 10:55 with transfusion(s)? Specify any problems Hx of Preganancy in last 3 No 01/31/25 10:55 Months Nurse Filling Out Transfusion DSCHRIBER 01/31/25 10:55 & Questions: Date: 01/31/25 01/31/25 10:55 Time: 10:56 01/31/25 10:55 Patient unable to answer at this time (ie. confused, unrespo /Reproduction History /Reproductive History - photographic developer and printer: /Reproductive Hx- photographic developer and printer Hx Now No 01/31/25 10:55 Gestational Age (in weeks): EDC: Hx Hx Para Hx Section SAB No 01/31/25 10:55 Active Medications Active Medications: Current Medications Generic Name Dose Route Start Last Admin Trade Name Freq PRN Reason Stop Dose Admin Ciprofloxacin 400 mg in 200 mls @ 200 mls/hr 02/14/25 07:30 02/14/25 06:37 Cipro IV 02/14/25 08:29 200 mls/hr PREOP ONE Administration Metronidazole 500 mg in 100 mls @ 100 mls/hr 02/14/25 07:30 Flagyl IV 02/14/25 08:29 INTRAOP ONE Lactated Ringer's 1,000 mls @ 15 mls/hr 02/14/25 06:15 02/14/25 06:37 IV 15 mls/hr .Q48H JANET Administration PFSH Medical History Liver tumor (benign) Easy bruising Back pain Injury of head and neck Migraine headache Syncope History of IBS Gastric reflux Non-smoker History of edema PCOS (polycystic ovarian syndrome) Attention-deficit hyperactivity disorder, unspecified type Psoriasis Home Medications ?Medication ?Instructions ?Recorded ?Last Taken ?Type pantoprazole 40 mg tablet,delayed 40 mg PO QDAY #30 tabs 12/20/24 02/11/25 Rx release (Protonix) Allergy/AdvReac Type Severity Reaction Status Date / Time amoxicillin (Amoxicillin) Allergy Rash Verified 02/14/25 06:32 red dye Allergy Swelling Verified 02/14/25 06:32 Family History Grandmother Colon cancer IBS (irritable bowel syndrome) Surgical History Hx of colonoscopy History of esophagogastroduodenoscopy (EGD) History of myringotomy Social History Smoking Status: Never smoker Review of Systems (Anesthesia) ROS Narrative System reviewed and no additional complaints, except as documented.
--- NOTE | 2025-02-14 07:21 | PCM.HP.STD ---
HPI - General General Date of Service: 02/14/25 HPI Narrative NIKKI THACKER, is a 19 F who presents robotic cholecystectomy due to biliary dyskinesia. Patient states she is having more discomfort in the right upper quadrant after eating. Patient also still has lower abdominal pain which she is aware may be due to the PCOS Office visit 01/03/2025 HPI HPI: 19-year-old female presents for follow-up. Patient still states she is having lower abdominal pain and even some left upper quadrant more so than right upper quadrant pain. Patient is continue to take the pantoprazole but did stop the Carafate as she stated caused constipation. Patient does have a previous HIDA scan with ejection fraction of 17%. [facility] Medical History (Updated 01/31/25 @ 11:03 by Rafia Truong) Liver tumor (benign) Easy bruising Back pain Injury of head and neck Migraine headache Syncope History of IBS Gastric reflux Non-smoker History of edema PCOS (polycystic ovarian syndrome) Attention-deficit hyperactivity disorder, unspecified type Psoriasis Home Medications ?Medication ?Instructions ?Recorded ?Last Taken ?Type pantoprazole 40 mg tablet,delayed 40 mg PO QDAY #30 tabs 12/20/24 02/11/25 Rx release (Protonix) Allergy/AdvReac Type Severity Reaction Status Date / Time amoxicillin (Amoxicillin) Allergy Rash Verified 02/14/25 06:32 red dye Allergy Swelling Verified 02/14/25 06:32 Family History Grandmother Colon cancer IBS (irritable bowel syndrome) Surgical History (Updated 01/31/25 @ 11:03 by Rafia Truong) Hx of colonoscopy History of esophagogastroduodenoscopy (EGD) History of myringotomy Social History Smoking Status: Never smoker Vital Signs Vital Signs Vital Signs: 02/14/25 06:33 02/14/25 06:33 02/14/25 07:20 Temperature 98.2 F 98.2 F Temperature Source Temporal Pulse Rate 69 69 Respiratory Rate 18 18 Respiratory Pattern Normal Blood Pressure 110/64 110/64 Blood Pressure Mean 79 Blood Pressure Source Monitor Blood Pressure Position Semi-Fowlers Blood Pressure Location Right Arm Pulse Ox 99 99 Oxygen Delivery Method Room Air Weight Weight: 163 lb 9.328 oz Body Mass Index (BMI) 28.0 Physical Exam Const alert, oriented x3 and no apparent distress HEENT normocephalic and head/scalp atraumatic Resp normal respiratory effort Cardio regular rate GI soft to palpation and non-tender; Negative for non-distended Palpation: Negative for guarding Extremity no clubbing, cyanosis or edema Skin no rashes or lesions noted Neuro CN's II-XII intact bilaterally Psych mental status grossly normal Results Lab / Micro Data 02/13/25 09:57 Labs: Laboratory Results - last 24 hr 02/13/25 09:57: WBC 5.4, RBC 4.67, Hgb 13.4, Hct 40.6, MCV 86.9, MCH 28.7, MCHC 33.0, RDW Std Deviation 38.5, RDW Coeff of Fritz 12.0, Plt Count 236, MPV 8.9, PT 13.5, INR 1.0, APTT 29.1, Total Bilirubin 0.25, Direct Bilirubin 0.11, AST 18, ALT 13, Alkaline Phosphatase 84, Total Protein 6.9, Albumin 4.0, Globulin 2.9 02/14/25 06:30: Urine Test Negative Assessment & Plan Assessment/Plan (1) Abnormal biliary HIDA scan: (2) Lower abdominal pain: PLAN: Plan Patient is aware that likely the robotic cholecystectomy will not improve her lower abdominal pain should help with the right upper abdominal pain. Reviewed the anatomy with the patient and discussed the procedure: Robotic/laparoscopic cholecystectomy with possible cholangiograms, possible open. Review risks including but not limited to bleeding, infection, hernia, bile leak, retained gallstones requiring another procedure ERCP- Endoscopic Retrograde Cholangiopancreatography, injury to another organ (bile ducts, common bile duct, small bowel, etc.) and conversion to an open procedure. All questions were answered. Lor Bell M.D. Pager: [phone] [facility] [address] [place] [address], [address] [place] [address] Office: [phone]
[2025-02-14] MEDS: Midazolam 2 MG/2 ML Syringe IV (07:30)
--- NOTE | 2025-02-14 07:30 | GALL_PTH ---
PATIENT: NIKKI THACKER LOC: [facility] U#:[id number] AGE/SX: 19/F ROOM: RE02/14/[address]: Dr. Lor Bell MD : 2005 BED: DIS: 02/14/2025 SPEC #: [id number] RECD: 02/14/25 09:29 STATUS: STEPHIE NICANOR #: [id number] JASON: 02/14/25 07:[address]: Lor Bell DEPT: SURGICAL PATHOLOGY RECD BY: Fili Ge ENTERED: 02/14/25 13:54 SP TYPE: RADHA GAMBLE DR: MD Ana Cool MD Tissues: A - Gallbladder, NOS Procedures: Surgery Specimen Level III HEADER OPERATION: Robotic cholecystectomy with grams PRE-OP DIAGNOSIS: Abnormal biliary HIDA scan, lower abdominal pain TISSUE SUBMITTED: A- Gallbladder and contents MICROSCOPIC DIAGNOSIS A. Gallbladder and contents, robotic cholecystectomy: * Cholesterolosis. MICROSCOPIC DESCRIPTION Slides are reviewed. GROSS DESCRIPTION A. Received in formalin labeled with the patient's name and date of . Designated as gallbladder and contents is an 8.6 x 2.6 x 2.3 cm pink-purple to green, intact and distended gallbladder with attached patent cystic duct (inked black, shaved). A lymph node is not present. Opening reveals dark green, tenacious bile devoid of choleliths. The mucosa is dark green, granular and somewhat fibrotic with a maximum wall thickness of 0.1 cm. Cholesterolosis is focally present. Dexigraph Operator sections are submitted in 1 cassette. [place] 02/14/2025 CPT:47989
[2025-02-14] MEDS: Lidocaine 1% (5 ml sdv) 5 ML Vial IV (07:38)
[2025-02-14] MEDS: metroNIDAZOLE 500 MG/100 ML BAG 100 MG IV (07:45)
[2025-02-14] MEDS: Lactated Ringers 2,000 ML 2000 ML IV (08:35)
--- NOTE | 2025-02-14 08:36 | PCM.OPRPT ---
Operative Report (Standard) Operative Information Date of Procedure: 02/14/25 Pre-Operative Diagnosis: Biliary dyskinesia Post-Operative Diagnosis: Same Surgery/Procedure Performed: Robotic cholecystectomy with ICG virtual office assistant: Yes Undergraduate Intern: Paulina Rader Tasks completed by assistant refinery operator: Opening & closing Type of Anesthesia: General/Supplemental RN Documented Start/Stop Times: Operation Date: 02/14/25 07:30 Case Time Into Pre-Op 02/14/25 06:06 Out of Pre-Op 02/14/25 07:28 Anesthesia Start 02/14/25 07:30 Into Room 02/14/25 07:30 Procedure Start 02/14/25 07:50 Procedure End 02/14/25 08:41 Anesthesia End 02/14/25 08:47 Out of Room 02/14/25 08:47 Into Recovery 02/14/25 08:50 Into Phase II Recovery 02/14/25 10:44 Out of Recovery 02/14/25 10:44 Procedure Start Time: 07:50 Procedure Stop Time: 08:41 Select all DRAINS/GRAFTS/IMPLANTS that apply: None Special Medications: Cipro 40 mg IV x 1, Flagyl 500 mg IV x 1 Estimated Blood Loss: < 10 cc Specimen collected: Yes Description of specimen(s) removed: Gallbladder Description of surgery: Indications: this is a 19 year-old female who developed abdominal pain/nausea/vomiting and on workup was found to have biliary dyskinesia, with a normal common bile duct. Laparoscopic cholecystectomy was elected. Description procedure: The patient was placed on operating table in supine position. A timeout was completed verifying correct patient, procedure, site, position and special equipment prior to beginning procedure. General Anesthesia was induced. The abdomen was prepped and draped in usual sterile fashion. An incision was made in the natural skin line below the umbilicus. The fascia was elevated and incised. The peritoneum was elevated and incised. Entry into the peritoneum was confirmed visually and no bowel was noted in the vicinity of the incision. Rangel trocar was placed. The abdomen was insufflated with carbon dioxide to a pressure of 12-15 mmHg. Patient tolerated insufflation well. The laparoscope was then inserted and abdomen inspected. No injuries from initial trocar placement were noted. Additional trochars were then inserted in the following locations 8 mm trocar left upper quadrant and 2 more 8 mm trochars in right lower quadrant and left lower quadrant. The abdomen was inspected no abnormalities were found. The table is placed in reverse Trendelenburg position with the right side up. Robot was docked. The adhesions between the gallbladder and omentum were taken down carefully. The dome of the gallbladder was grasped with atraumatic grasper passed through the lateral port and retracted over the dome of the liver. Infundibulum was then grasped with atraumatic grasper through the midclavicular port and retracted to the right lower quadrant. This maneuver exposed Calot's triangle. The peritoneum overlying the gallbladder infundibulum was then incised and cystic duct and artery identified and circumferentially dissected. ICG was used to visualize the cystic duct/CBD. The cystic duct and artery were then doubly clipped and divided close to the gallbladder. The gallbladder then dissected from its peritoneal attachments by electrocautery. Hemostasis was checked and the gallbladder was removed using the endoscopic retrieval bag through the umbilical port. The gallbladder is passed off table as specimen. The gallbladder fossa was irrigated with saline and hemostasis obtained. There is no evidence of bleeding from the gallbladder fossa or cystic artery leakage of bile from the cystic duct stump. Secondary trochars removed under direct vision. No bleeding was noted the trocar sites. The laparoscope was withdrawn and umbilical trocar removed. The abdomen was allowed to collapse. The fascia of the 12 mm trocar was closed with a [id number] 0 Vicryl suture. The skin was closed with sutures of 4-0 Monocryl and Steri-Strips. The patient was extubated. The patient tolerated procedure well and was taken to the postanesthesia care unit in stable condition. Surgical Findings: See operative report Complications Complications: No
--- NOTE | 2025-02-14 08:38 | EX.PCM.DISCH ---
Discharge Instructions Diet Discharge Diet: Light diet - advance as tolerated Activity Discharge Activity: May Not Drive (while taking narcotic pain medications.) May shower in (days): 1 Lifting Restrictions: no lifting >20 lbs x 2 wks, no strenuous exercise for 4 wks Dressing / Incision Call your doctor if your incision/area has: Continuous Slow Oozing, Sudden Increased Bleeding, Increased Pain/ Swelling, Increased Redness, Foul Smelling Discharge and Swelling at the incision site Call your doctor if you observe: Fever of 101 or Higher Remove Dressing in: 2 days Cleanse incision/area with: Soap & Water Additional Dressing/Incision Instructions:: Steri-Strips will fall off in 7 to 10 days, if they do not fall off okay to remove after 10 days. Follow Up Care Please Follow Up With: Lor Bell MD When: Call the office for a follow-up appointment 2 weeks; after 5 PM and on the weekends call [phone] with any concerns. Test Results: Test results from this visit will be discussed in further detail at your follow-up appointment, if applicable. Discharge Plan Admission Attending Provider: Lor Bell Primary Care Provider: Ana Leija Consulting Providers: Phoenix Amaro Instructions Additional Instructions / Restrictions: Okay to take ibuprofen 400-600 mg PO q6hr PRN and Tylenol 650 to 1000 mg p.o. every 6 hours as needed along with the oxycodone. Take all pain meds with food. Oxycodone can cause constipation recommend taking daily stool softener (i.e. Colace/docusate) while taking the pain meds. Recommend starting some MiraLAX in 1 to 2 days if no bowel movement. If still no bowel movement the following day recommend taking additional MiraLAX versus magnesium citrate half the bottle and waiting 4-6 hours if still no results take the other half the bottle. Print Language: [place] Discharge Orders/Prescriptions Prescriptions: New oxycodone 5 mg capsule 5 mg PO Q6H PRN (Reason: pain) 3 Days Qty: 10 0RF Continued pantoprazole [Protonix] 40 mg tablet,delayed release (DR/EC) 40 mg PO QDAY Qty: 30 2RF Other Ambulatory Orders: 12 Lead EKG (Routine) Timeframe: [id number] Facility: [facility] - Location: Cardiovascular Services Ordered By: Dr. Phoenix Amaro Referrals / Follow Up: Ana Leija MD [Primary Care Provider, Family Practice] Disposition Disposition (needs filled in before D/C Order can be placed): Home, Self Care
[2025-02-14] MEDS: fentaNYL 100 MCG/2 ML Ampul 200 MCG IV (08:45)
--- NOTE | 2025-02-14 09:04 | PCM.POST.ANE ---
Anesthesia: Postop Eval I Current Vital Signs Temperature: 97.7 F Pulse Rate: 72 Blood Pressure: 116/69 Respiratory Rate: 16 Pulse Ox: 10 Oxygen Delivery Method: Room Air Assessment Airway patent: Yes Spontaneous unlabored respirations: Yes Mental status: Asleep nausea: No Vomiting: No Anesthesia Complication: No Fluid Hydration Crystalloid volume administer (ml): 1,100 Total IV fluid infused: 1,100 Progress Note Anesthesia document: Postop Eval 1 completed: Yes
[2025-02-14] MEDS: Ketorolac 30 MG/ML Syringe IV (09:30)
--- NOTE | 2025-02-14 19:47 | POSTOPAN2_ITS ---
Anesthesia Postop Eval I Sum Postop Eval Completion status Anesthesia document: Postop Eval 1 completed: Yes Anesthesia Postop Eval I Summary Anesthesia Postop Eval I Summary: Anesthesia Postop Eval I: Assessment Summary Airway patent Yes 02/14/25 09:05 [employer]TR [email or web address] Spontaneous unlabored Yes 02/14/25 09:05 [employer]TR [email or web address] respirations Mental status Asleep 02/14/25 09:05 OTR [email or web address] nausea No 02/14/25 09:05 OTR [email or web address] Vomiting No 02/14/25 09:05 OTR [email or web address] Anesthesia Postop Eval I: Fluid Summary Crystalloid volume administer 1,100 02/14/25 09:05 OTR [email or web address] (ml) Colloids volume administered ( ml) Blood Product volume administered (ml) Total IV fluid infused 1,100 02/14/25 09:05 OTR [email or web address] Anesthesia Postop Eval I: Summary Notes Anesthesia Complication No 02/14/25 09:05 OTR [email or web address] Anesthesia Complication Comment: Post-operative progress note Anesthesia: Postop Eval II Evaluation Mental status: Awake and Calm Pain Level: 1 nausea: No Vomiting: No Progress Note Post-operative progress note: While in PACU, patient had an episode of apnea which required bag mask ventilation with oxygen. Oxygen saturations improved, but then would start drifting down again. It appeared that the patient may be having some obstructive sleep apnea so a nasal trumpet 30 [place] was placed in the right nare. This seemed to improved airflow and stimulated the patient to take better breaths. Patient was maintained in the high 90s with nasal cannula oxygen afterwards. She had no further issues and was discharged to stage II. Complications Anesthesia Complication: Yes Anesthesia Complication Comment:: Brief episode of apnea possibly obstructive in nature treated with nasal trumpet and oxygen. See full note in progress note.
== END 2025-02-14 13:28 | disposition home or self-care (01) ==
LOC: SDC 05:55 → AC 05:56
PROVIDERS: Anesthesiology; PCP Family Medicine; Referring Provider Surgery; Visit Provider Surgery
PROC: 0FT44ZZ Resection of Gallbladder, Percutaneous Endoscopic Approach (ICD-10-PCS; CPT 47562; principal; 2025-02-14 07:10)
DX: K82.4 Cholesterolosis of gallbladder (principal); K21.9 Gastro-esophageal reflux disease without esophagitis; R10.30 Lower abdominal pain, unspecified; Z79.899 Other long term (current) drug therapy
CPT/HCPCS: 47562; S2900; 00790; 36415; 80076; 81025; 85027; 85610; 85730; 88304; 93005; J0744; J2312; J2405